=== PATIENT | male | born 1960 | race African-American/Black ===

== ENCOUNTER 2017-06-07 02:20 | Inpatient (IN) | payer MEDICARE ==
[2017-06-07] MEDS ORDERED: Nitroglycerin 0.4 MG TAB (25 Tab Bottle) ONE (03:03)
[2017-06-07 03:18] LABS: #Monocytes 0.6 thou/uL (0.11-0.59); #Neutrophils 6.9 thou/uL (1.40-6.50); %Basophils 0.3 % (0.0-1.0); %Eosinophils 0.3 % (0.0-10.0); %Lymphocytes 11.5 % (21.0-51.0); %Monocytes 6.7 % (0.0-10.0); Mean Platelet Volume 6.9 fL (7.4-10.4); White Blood Cell (WBC) Count 8.5 thou/uL (4.8-10.8)
[2017-06-07 03:42] LABS: ALT (SGPT) 17 U/L (8-55); AST (SGOT) 25 U/L (5-34); Alkaline Phosphatase 71 U/L (40-150); Anion Gap 11 mmol/L (10-20); BUN (Urea Nitrogen) 25 mg/dL (8.4-25.7); Bilirubin, Total 1.1 mg/dL (0.2-1.2); Calc. Creatinine Clearance 0 mL/min (70-130); Calcium 8.4 mg/dL (7.8-10.44); Carbon Dioxide 22 mmol/L (22-29); Chloride 108 mmol/L (98-107); Estimated GFR-MDRD 64; Globulin 3.5 g/dL (2.4-3.5); Protein, Total 6.7 g/dL (6.0-8.3)
[2017-06-07 04:08] LABS: Troponin I 0.061 ng/mL (< 0.028)
[2017-06-07] MEDS ORDERED: Nitroglycerin 2% Ointment 1 INCH/1 GM Packet ONE (04:17)
[2017-06-07] MEDS ORDERED: Furosemide 40 MG/4 ML VIAL ONE (04:17)
[2017-06-07 05:28] LABS: Bilirubin Negative (Negative); Blood, Urine Negative (Negative); Glucose, Urine (Dipstick) Negative (Negative); Ketone, Urine Negative (Negative); Nitrite Negative (Negative); Protein, Urine (Dipstick) 30 mg/dL (Neg-Trace)
[2017-06-07 05:30] LABS: Bacteria/HPF None Seen HPF (None Seen); Hyaline Casts/LPF 0-3 HYALINE CAST LPF (0-3 Hyaline); RBC/HPF 0-3 HPF (0-3); Squamous Epithelial None Seen HPF (0-3); WBC/HPF None Seen HPF (0-3)
[2017-06-07 05:37] LABS: Amphetamine Not Detected (NotDetected); Methadone Not Detected (NotDetected); Methamphetamine Not Detected (NotDetected)
[2017-06-07] MEDS ORDERED: Ondansetron ODT 4 MG TAB SL PRN (06:47)
[2017-06-07] MEDS ORDERED: Ondansetron HCl/PF 4 MG/2 ML Vial IVP PRN (06:47)
[2017-06-07] MEDS ORDERED: Acetaminophen 325 MG TAB PO PRN (06:47)
[2017-06-07] MEDS ORDERED: Morphine 4 MG/ML VIAL SLOW IVP PRN ×2 (06:48→11:17)
--- NOTE | 2017-06-07 07:19 | RAD ---
1 VIEW CHEST: Date: 06/07/17 COMPARISON: 02/24/16. HISTORY: Shortness of breath x1 month. Right leg swelling. FINDINGS: Stable left-sided single lead defibrillator. There is cardiomegaly. Pulmonary vessels are slightly pr ominent. Costophrenic angles are clear. Patchy interstitial opacities, presumed to be upon chronic ch laith are noted. There is concern for possible interstitial edema. Consolidation or mass is not apprec iated. There is no pneumothorax. IMPRESSION: 1. Cardiomegaly. 2. Pulmonary vascular prominence. 3. Interstitial edema. 4. Congestive heart failure. POS: PPP
[2017-06-07 08:20] LABS: Troponin I 0.057 ng/mL (< 0.028)
[2017-06-07 08:41] VITALS: BMI 22.7
[2017-06-07 11:02] LABS: Troponin I 0.054 ng/mL (< 0.028)
[2017-06-07] MEDS ORDERED: HYDROcodone/Acetaminophen 5/325 mg Tablet PO PRN (12:06)
--- NOTE | 2017-06-07 12:17 | HP ---
CHIEF COMPLAINT: Shortness of breath. HISTORY OF PRESENT ILLNESS: This is a 57-year-old pleasant gentleman who came into the hospital with worsening shortness of breath. He says that it started about 1 month back and it progressively got worse to the point that he could not lay down flat. The patient came to the point where he has to si t to go to sleep. The patient says that last time he saw Dr. 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 He also complains of some intermitt ent chest pains which is substernal, was does not radiate anywhere. Denies any palpitations, fever o r chills. Reports some cough every morning. Of note, his urine is positive for cocaine. He denies any fever, chills, diarrhea or dysuria at this point. PAST MEDICAL HISTORY: Acute on chronic systolic congestive heart failure with ejection fraction of 1 0-15%. The patient also has mild chronic kidney disease stage 3. History of coronary artery disease status post heart catheterization in 07/2015, cocaine abuse ongoing, medication noncompliance, hyper tension uncontrolled, history of hypertensive urgencies in the past, history of right knee septic leeanne nt arthritis. PAST SURGICAL HISTORY: Significant for multiple knee surgeries in the past, AICD, history of cardiac catheterization in 07/2015. CURRENT MEDICATIONS: The patient's current medications at the time of discharge included amiodarone, aspirin, Coreg, Lasix, lisinopril, Aldactone and prednisone, though he does not know his current med ications right now. ALLERGIES: No known drug allergies. FAMILY HISTORY: Significant for diabetes and hypertension. SOCIAL HISTORY: Does cocaine, quit smoking, quit marijuana. Denies alcohol. REVIEW OF SYSTEMS: Significant for shortness of breath, otherwise no fever, no chills, no headache, no appetite changes. No cough. Positive for chest pain, no diarrhea, no dysuria, or polyuria. No m sumaya or mood changes. No neck pain. PHYSICAL EXAMINATION: VITAL SIGNS: Blood pressure is 127/79, temperature is afebrile, pulse is 83, respirations 18. GENERAL: Patient is lying in bed in no apparent distress. HEENT: Atraumatic and normocephalic. Pupils equally round, react to light. Extraocular movements i ntact. Mucous membranes moist. NECK: No JVD. CHEST: Breath sounds heard, bibasilar rales heard. CARDIOVASCULAR: S1, S2 normal. There is a systolic ejection murmur heard. ABDOMEN: Soft, obese. EXTREMITIES: +1 edema present. NEUROLOGIC: Alert, awake, oriented. No cranial deficits. No sensorimotor deficits. SKIN: Warm and dry. PSYCHIATRIC: Good mood. LABORATORY DATA: Troponin is 0.061. Ejection fraction is 10%. BNP is 4082. Severe mitral regurgitation and TR seen on old echo. UDS shows cocaine. UA is negative. CK is pend ing. Chest x-ray shows CHF. Potassium is 4, creatinine is 1.39. WBC count is 8.5, hemoglobin is 12 . ASSESSMENT AND PLAN: 1. Acute on chronic systolic congestive heart failure with ejection fraction of 10%, cocaine use. W e will do IV. We will hold metoprolol and beta blockers for now because of the history of cocaine in the UDS. We will do IV Lasix, p.r.n. neb treatments, oxygen, Cardiology consult and continue SHLOMO an d Aldactone. 2. Cocaine use. He has been counseled about it. 3. Severe mitral regurgitation. Follow Cardiology plan. 4. Chronic kidney disease, stage 3. We will monitor throughout this hospital stay. 5. Hypertension, stable. 6. Status post automatic implantable cardioverter/defibrillator, stable. 7. Elevated troponins, possibly secondary to demand ischemia and cocaine use. We will follow Cardio logy recommendations. 8. Sequential compression devices for deep venous thrombosis prophylaxis. 9. We will get palliative care as well to determine goals of care. We will work with Cardiology in further caring for the patient.
[2017-06-07] MEDS ORDERED: FLU VACC QS2017-18 36 mo. & older 0.5 ML SYRINGE IM ONE (12:30)
[2017-06-07] MEDS: Furosemide 40 MG/4 ML VIAL SLOW IVP SCH (13:10)
--- NOTE | 2017-06-07 20:06 | CON ---
DATE OF CONSULTATION: 06/07/2017 INDICATION FOR CONSULTATION: A 57-year-old gentleman with CHF exacerbation. HISTORY OF PRESENT ILLNESS: This is a very unfortunate 57-year-old gentleman with a nonischemic card iomyopathy due to most likely to cocaine abuse. He was admitted again due to shortness of breath. Anika pillai has been noncompliant with his medications. He said he ran out of his medications and became more short of breath and has some chest discomfort and presented to the emergency room. He is feeling muc h better now after he has had some diuresis. He was in the hospital on June with very similar fin dings, he underwent a cardiac catheterization in 07/2015, which showed mild to moderate coronary avani ry disease. He has had chronic elevation of cardiac enzymes in the past. He does have an LAD stenos is about 40% by cardiac catheterization in 2016. He has also had an AICD implanted due to his severe cardiomyopathy. At this time, he is not having any complaints. He is somewhat lethargic and sleepy and is very difficult to keep the patient awake during the examination. PAST MEDICAL HISTORY: Significant for cardiomyopathy, hypertension, hypercholesterolemia, noncomplia nce with medications and mild coronary artery disease, diabetes, status post AICD, and knee surgery. SOCIAL HISTORY: He is smoked in the past, but stopped. He also denied any alcohol use but he contin ues to use cocaine. FAMILY HISTORY: Noncontributory. ALLERGIES: He has no known drug allergies. REVIEW OF SYSTEMS: A 12-point review of systems is unremarkable except what was noted in the history of present illness. PHYSICAL EXAMINATION: GENERAL: Reveals a middle-aged gentleman in no acute distress. VITAL SIGNS: Blood pressure is 120/91, heart rate is 95 and regular. He is afebrile, respiratory ra te is 18. HEENT: Reveals the head to be normocephalic and atraumatic. Carotid pulses are present. There were no bruits. No JVD. The thyroid did not appear to be enlarge d. Oral mucosa was pink and moist. CHEST: Clear to auscultation. I did not hear any rales, rhonchi or wheezing at this time. CARDIOVASCULAR: Exam reveals a regular rate and rhythm, normal S1 and S2. I cannot hear any S3 nor an S4, no significant murmurs, heaves, thrills, bruits or rubs. He has a very soft murmur at the ape x. ABDOMEN: Soft and nontender with positive bowel sounds. EXTREMITIES: Show no clubbing or cyanosis. He has mild lower extremity and ankle edema. Pedal puls es are difficult to palpate. NEUROLOGIC: The patient appears somewhat sleepy and lethargic, but he did answer most questions when he was repeatedly arouse do so. EKG shows a normal sinus rhythm with left ventricular hypertrophy. IMPRESSION: 1. Congestive heart failure exacerbation due to noncompliance with medications. He said he ran out of his medications that was not taking them and the goal will be to get him back on his medications a nd hopefully given some assistance and taking the medications. 2. History of coronary artery disease which is mild. This appears to be stable. There is no eviden ce, he has any acute episodes; however, his MB 7.0 and cardiac enzymes are slightly elevated, but are now trending downwards. His first set was 0.061, now down to 0.054. Most likely this is due to dem and ischemia. His BNP was elevated over 4000 compatible with his congestive heart failure. 3. History of hypertension. This is also under reasonable control at this time. 4. Mild to moderate chronic kidney disease stage 3. The creatinine is 1.39, BUN 25. This appears t o be stable, but may be overestimation since he most likely has volume overload with some dilution an d creatinine and the BUN. 6. History of ventricular tachycardia. He has an AICD implanted. Earlier today, he had 16 beats of nonsustained ventricular tachycardia. I do not know when his AICD was last checked. We may need to interrogate to see ventricular tachycardia if he has not had the device recently checked. Fur ther care of the patient will be determined by Dr. Corona when he sees the patient most likely ochoa franz.
[2017-06-07] MEDS: Famotidine 20 MG TAB PO SCH (21:28)
[2017-06-07] MEDS: Docusate 100 MG CAP PO SCH ×2 (21:28→22:07)
[2017-06-08 05:29] LABS: Anion Gap 12 mmol/L (10-20); BUN (Urea Nitrogen) 26 mg/dL (8.4-25.7); BUN/Creatinine Ratio 17.22; CK (CPK) 220 U/L (30-200); Calc. Creatinine Clearance 62 mL/min (70-130); Calcium 8.7 mg/dL (7.8-10.44); Carbon Dioxide 27 mmol/L (22-29); Chloride 104 mmol/L (98-107); Estimated GFR-MDRD 58; Phosphorus 4.1 mg/dL (2.3-4.7)
[2017-06-08] MEDS: Furosemide 40 MG/4 ML VIAL SLOW IVP SCH ×2 (06:54→14:40)
--- NOTE | 2017-06-08 08:01 | PRG ---
DATE OF SERVICE: 06/08/2017 SUBJECTIVE: Mr. Beckham recently was admitted for congestive heart failure. He states he is doing much better. He has diuresed. OBJECTIVE: VITAL SIGNS: Blood pressure 144/94, pulse 69, temperature 97.9. LUNGS: Clear to auscultation. CARDIAC: Regular rate and rhythm. ABDOMEN: Soft, nontender, nondistended. EXTREMITIES: No edema. LABORATORY DATA: Hemoglobin 12.5, peak troponin 0.061, creatinine 1.51 with a GFR of 58. Urine drug screen positive for cocaine. IMPRESSION: 1. Nonischemic cardiomyopathy. 2. Noncompliance. 3. Cocaine use. RECOMMENDATIONS: I once again counseled Mr. Beckham on the use of cocaine and the cause of nonischemic cardiomyopathy. Unfortunately, he continues to use the illicit drugs. At this point, I would contin ue with lisinopril and spironolactone. We will add low dose Coreg. Continue with diuresis. Recheck creatinine in a.m.
--- NOTE | 2017-06-08 08:27 | RAD ---
CHEST TWO VIEWS: HISTORY: Congestive heart failure. COMPARISON: 06/07/2017 FINDINGS: Cardiac silhouette remains enlarged. Pulmonary vasculature is engorged with patchy bibasilar infiltr ates. Blunting of each costophrenic angle has the appearance of a small amount of pleural fluid. Me diastinum remains midline with aortic calcification and a single lead left subclavian defibrillator. bottling equipment sales representative leads overlie the chest. IMPRESSION: Slight interval progression of pulmonary vascular congestion, now with small bilateral pleural effusi ons. POS: KIMBERLY
[2017-06-08] MEDS: Spironolactone 25 MG TAB PO SCH (09:13)
[2017-06-08] MEDS: Lisinopril 2.5 MG TAB PO SCH (09:13)
[2017-06-08] MEDS: Docusate 100 MG CAP PO SCH ×3 (09:14→21:27)
[2017-06-08] MEDS: Carvedilol 3.125 MG TAB PO SCH ×2 (09:14→21:27)
[2017-06-08] MEDS: Aspirin 81 mg Enteric Coated Tablet PO SCH (09:14)
[2017-06-08] MEDS: Famotidine 20 MG TAB PO SCH ×2 (09:14→21:27)
[2017-06-09] MEDS: Furosemide 40 MG/4 ML VIAL SLOW IVP SCH ×2 (05:53→14:50)
[2017-06-09 07:02] LABS: Anion Gap 12 mmol/L (10-20); BUN (Urea Nitrogen) 29 mg/dL (8.4-25.7); BUN/Creatinine Ratio 20.57; CK (CPK) 187 U/L (30-200); Calc. Creatinine Clearance 66 mL/min (70-130); Carbon Dioxide 27 mmol/L (22-29); Chloride 104 mmol/L (98-107); Estimated GFR-MDRD 63; Phosphorus 4.3 mg/dL (2.3-4.7)
[2017-06-09] MEDS ORDERED: Sodium Chloride 0.9% 10 ML ONE ×2 (08:13→14:10)
[2017-06-09] MEDS: Lisinopril 2.5 MG TAB PO SCH (09:42)
[2017-06-09] MEDS: Carvedilol 3.125 MG TAB PO SCH ×2 (09:42→20:05)
[2017-06-09] MEDS: Docusate 100 MG CAP PO SCH ×2 (09:42→20:06)
[2017-06-09] MEDS: Spironolactone 25 MG TAB PO SCH (09:43)
[2017-06-09] MEDS: Aspirin 81 mg Enteric Coated Tablet PO SCH (09:43)
[2017-06-09] MEDS: Famotidine 20 MG TAB PO SCH ×2 (09:43→20:05)
--- NOTE | 2017-06-09 14:47 | PDOC.PN ---
- Subjective Encounter Start Date: 06/08/17 Encounter Start Time: 14:46 Patient seen and examined. No new complaints. No overnight events - Objective MAR Reviewed: Yes Vital Signs & Weight: Vital Signs (12 hours) Temp Pulse Resp BP BP BP Pulse Ox 06/09/17 11:45 98.4 F 81 18 113/76 92 L 06/09/17 09:42 94 121/81 06/09/17 09:40 96 06/09/17 09:35 97.8 F 94 20 121/81 96 06/09/17 05:08 97.6 F 86 25 H 117/92 H 90 L Weight Admit Weight 177 lb 3.2 oz Weight 177 lb I&O: 06/08/17 06/09/17 06/10/17 06:59 06:59 06:59 Intake Total 1760 1145 480 Output Total 3835 2970 Balance -2075 -8825 480 Result Diagrams: 06/07/17 03:09 06/09/17 06:07 Phys Exam - Physical Examination Constitutional: NAD HEENT: PERRLA Neck: no JVD Respiratory: no wheezing bibasilar rales Cardiovascular: no significant murmur Gastrointestinal: non-tender Musculoskeletal: pulses present, edema present Neurological: moves all 4 limbs Psychiatric: A&O x 3 Dx/Plan (1) Systolic CHF, acute on chronic Code(s): I50.23 - ACUTE ON CHRONIC SYSTOLIC (CONGESTIVE) HEART FAILURE Status : Acute Comment: ef- 10% (2) Hypertension Code(s): I10 - ESSENTIAL (PRIMARY) HYPERTENSION Status: Chronic (3) CKD (chronic kidney disease) stage 3, GFR 30-59 ml/min Status: Chronic (4) Cocaine abuse Code(s): F14.10 - COCAINE ABUSE, UNCOMPLICATED Status: Chronic - Plan * cont current mx * f/u card plan
--- NOTE | 2017-06-09 14:49 | PDOC.PN ---
- Subjective Encounter Start Date: 06/09/17 Encounter Start Time: 14:48 Patient seen and examined. No new complaints. No overnight events - Objective MAR Reviewed: Yes Vital Signs & Weight: Vital Signs (12 hours) Temp Pulse Resp BP BP BP Pulse Ox 06/09/17 11:45 98.4 F 81 18 113/76 92 L 06/09/17 09:42 94 121/81 06/09/17 09:40 96 06/09/17 09:35 97.8 F 94 20 121/81 96 06/09/17 05:08 97.6 F 86 25 H 117/92 H 90 L Weight Admit Weight 177 lb 3.2 oz Weight 177 lb I&O: 06/08/17 06/09/17 06/10/17 06:59 06:59 06:59 Intake Total 1760 1145 480 Output Total 3835 2970 Balance -2075 -1827 480 Result Diagrams: 06/07/17 03:09 06/09/17 06:07 Phys Exam - Physical Examination Constitutional: NAD HEENT: PERRLA Neck: no JVD bibasilar rales Cardiovascular: no significant murmur Gastrointestinal: non-tender, no distention Musculoskeletal: edema present Neurological: moves all 4 limbs Psychiatric: A&O x 3 Dx/Plan (1) Systolic CHF, acute on chronic Code(s): I50.23 - ACUTE ON CHRONIC SYSTOLIC (CONGESTIVE) HEART FAILURE Status : Acute Comment: ef- 10% (2) Hypertension Code(s): I10 - ESSENTIAL (PRIMARY) HYPERTENSION Status: Chronic (3) CKD (chronic kidney disease) stage 3, GFR 30-59 ml/min Status: Chronic (4) Cocaine abuse Code(s): F14.10 - COCAINE ABUSE, UNCOMPLICATED Status: Chronic - Plan * * cont current mx * f/u card plan
--- NOTE | 2017-06-09 15:57 | PRG ---
DATE OF SERVICE: 06/09/2017 SUBJECTIVE: Mr. Beckham is doing better. He states he has had less swelling. He has diuresed. OBJECTIVE: VITAL SIGNS: Blood pressure 113/76, pulse 81 and temperature 94. LUNGS: Minimal crackles bilaterally. HEART: Regular rate and rhythm. ABDOMEN: Soft, nontender and nondistended. EXTREMITIES: 1+ pitting edema. PERTINENT LABORATORY DATA: None today. IMPRESSION: 1. Acute on chronic systolic failure. 2. Cocaine use. RECOMMENDATIONS: Again, I counseled Mr. Beckham on the importance of not using illicit drugs. He did h ave a ventricular tachycardia noted recently and was placed on amiodarone. We will follow.
[2017-06-10] MEDS ORDERED: Sodium Chloride 0.9% 10 ML ONE (04:38)
[2017-06-10] MEDS: Furosemide 40 MG/4 ML VIAL SLOW IVP SCH ×2 (05:25→14:15)
--- NOTE | 2017-06-10 06:35 | PRG ---
DATE OF SERVICE: 06/10/2017 SUBJECTIVE: Mr. Beckham states he is near his baseline. He mainly complains of mild right lower extrem ity swelling. His left lower extremity appears normal. He has no current crackles noted bilaterally . PHYSICAL EXAMINATION: GENERAL: Patient is a pleasant male, who is in no acute distress. The patient appears his stated ag e. VITAL SIGNS: 110/83, pulse 18, temperature 98. NEUROLOGIC: The patient is alert and oriented times 3 with no focal neurologic deficits. HEENT: Sclerae without icterus. Mouth has moist mucous membranes with normal pallor. NECK: No JVD. Carotid upstroke brisk. No bruits bilaterally. LUNGS: Clear to auscultation with unlabored respirations. BACK: No scoliosis or kyphosis. CARDIAC: Regular rate and rhythm with normal S1 and S2. No S3 or S4 noted. No significant rubs, mu rmurs, thrills, or gallops noted throughout the precordium. PMI is not displaced. There is no chapin ternal heave. ABDOMEN: Soft, nontender, nondistended. No peritoneal signs present. No hepatosplenomegaly. No ab normal striae. EXTREMITIES: Mild edema present of the left lower extremity. SKIN: No gross abnormalities. IMPRESSION: 1. Acute on chronic systolic heart failure. 2. Cocaine use. 3. Noncompliance. RECOMMENDATIONS: 1. Continue carvedilol, aspirin, in addition to lisinopril and spironolactone. 2. Amiodarone 400 mg one p.o. q.a.m. x1 month, then decrease to 200 mg one p.o. q.a.m. From my standpoint, the patient is close to discharge. We will discharge the patient on Lasix 40 mg p.o. q.a.m. Plan is to follow Mr. Beckham as an outpatient.
[2017-06-10 06:48] LABS: Anion Gap 12 mmol/L (10-20); BUN (Urea Nitrogen) 26 mg/dL (8.4-25.7); BUN/Creatinine Ratio 17.69; Calc. Creatinine Clearance 64 mL/min (70-130); Calcium 8.9 mg/dL (7.8-10.44); Carbon Dioxide 28 mmol/L (22-29); Chloride 101 mmol/L (98-107); Estimated GFR-MDRD 60; Phosphorus 4.2 mg/dL (2.3-4.7)
[2017-06-10] MEDS: Carvedilol 3.125 MG TAB PO SCH (08:17)
[2017-06-10] MEDS: Lisinopril 2.5 MG TAB PO SCH (08:17)
[2017-06-10] MEDS: Spironolactone 25 MG TAB PO SCH (08:18)
[2017-06-10] MEDS: Aspirin 81 mg Enteric Coated Tablet PO SCH (08:18)
[2017-06-10] MEDS: Famotidine 20 MG TAB PO SCH (08:18)
[2017-06-10] MEDS: Docusate 100 MG CAP PO SCH (08:18)
--- NOTE | 2017-06-10 13:12 | PDOC.PN ---
- Subjective Encounter Start Date: 06/10/17 Encounter Start Time: 13:11 Patient seen and examined. No new complaints. No overnight events - Objective MAR Reviewed: Yes Vital Signs & Weight: Vital Signs (12 hours) Temp Pulse Resp BP BP BP Pulse Ox 06/10/17 11:30 97.5 F L 79 20 120/76 93 L 06/10/17 08:17 86 113/77 06/10/17 08:10 97.8 F 86 18 113/77 95 06/10/17 03:42 98 F 80 20 110/83 96 06/10/17 01:36 94 L Weight Admit Weight 177 lb 3.2 oz Weight 177 lb 3.2 oz I&O: 06/09/17 06/10/17 06/11/17 06:59 06:59 06:59 Intake Total 1145 2348 240 Output Total 2970 4040 Balance -9391 -8095 240 Result Diagrams: 06/07/17 03:09 06/10/17 05:59 Phys Exam - Physical Examination Constitutional: NAD HEENT: PERRLA Neck: no JVD Respiratory: no wheezing Cardiovascular: no significant murmur Gastrointestinal: non-tender Musculoskeletal: pulses present Neurological: moves all 4 limbs Psychiatric: A&O x 3 Dx/Plan (1) Systolic CHF, acute on chronic Code(s): I50.23 - ACUTE ON CHRONIC SYSTOLIC (CONGESTIVE) HEART FAILURE Status : Acute Comment: ef- 10% (2) Hypertension Code(s): I10 - ESSENTIAL (PRIMARY) HYPERTENSION Status: Chronic (3) CKD (chronic kidney disease) stage 3, GFR 30-59 ml/min Status: Chronic (4) Cocaine abuse Code(s): F14.10 - COCAINE ABUSE, UNCOMPLICATED Status: Chronic - Plan * doing good * d/c home * f/u with card
--- NOTE | 2017-06-10 14:02 | DIS ---
DATE OF ADMISSION: 06/07/2017 DATE OF DISCHARGE: 06/10/2017 DIAGNOSES ON DISCHARGE: 1. Acute on chronic systolic congestive heart failure with ejection fraction of 10% secondary to arian delaney abuse, stable. 2. Cocaine abuse. Patient has been counseled. 3. Severe mitral regurgitation, stable. 4. Chronic kidney disease stage 3, stable. 5. Hypertension, stable. 6. Status post automatic implantable cardioverter/defibrillator, stable. 7. Elevated troponins, conservative management, stable. CONSULTANTS: The patient's consultants on the case were Cardiology. BRIEF HOSPITAL COURSE: This is a 57-year-old pleasant gentleman who came in with shortness of breath because of being noncompliant with medications and doing cocaine. Please refer to my H&P for furthe r details. The patient was seen by sales trainee. IV diuresis was put in place. He diuresed well. His symptoms resolved. He has been advised not to do cocaine. He is right now medically stable to b e discharged with outpatient followup with Cardiology. DISCHARGE MEDICATIONS: Include Coreg 3.125 mg p.o. b.i.d., aspirin 81 mg p.o. daily, lisinopril 2.5 p.o. daily, spironolactone 12.5 p.o. daily, amiodarone 400 mg p.o. daily for 1 month and then 200 m g p.o. daily, Lasix 40 mg p.o. daily. The patient is right now medically stable to be discharged with outpatient followup with Cardiology. He is asked come back to the emergency room in case symptoms recur. Total time for this discharge took 35 minutes.
[2017-06-10 17:08] VITALS: BP 114/64; TEMP 97.3
== END 2017-06-10 17:35 | disposition home or self-care (01) | DRG 291 ==
LOC: ERS 02:20 → 2NO 05:32
PROVIDERS: ADMIT Internal Medicine; ATTEND Internal Medicine
DX: I13.0 Hypertensive heart and chronic kidney disease with heart failure and stage 1 through stage 4 chronic kidney disease, or unspecified chronic kidney disease (principal); I50.23 Acute on chronic systolic (congestive) heart failure; M00.9 Pyogenic arthritis, unspecified; I24.8 Other forms of acute ischemic heart disease; I42.8 Other cardiomyopathies; N18.3 Chronic kidney disease, stage 3 (moderate); I25.10 Atherosclerotic heart disease of native coronary artery without angina pectoris; F14.10 Cocaine abuse, uncomplicated; I34.0 Nonrheumatic mitral (valve) insufficiency; Z91.14 Patient's other noncompliance with medication regimen; Z95.810 Presence of automatic (implantable) cardiac defibrillator; Z87.891 Personal history of nicotine dependence; Z83.3 Family history of diabetes mellitus; Z82.49 Family history of ischemic heart disease and other diseases of the circulatory system
CPT/HCPCS: 36415; 71020; 80053; 80069; 80306; 81003; 81015; 82550; 82553; 83735; 83880; 84484; 85025; 85379; 87040; 90471; 90682; 93005; 93306; 96361; 96374; A4216; G0008; G8978-GP-CI; G8979-GP-CI; G8980-GP-CI; J1940; Q2036

== ENCOUNTER 2017-08-08 15:38 | Inpatient (IN) | payer MEDICARE ==
[2017-08-08 16:02] LABS: #Monocytes 0.6 thou/uL (0.11-0.59); #Neutrophils 6.5 thou/uL (1.40-6.50); %Basophils 0.4 % (0.0-1.0); %Eosinophils 0.2 % (0.0-10.0); %Lymphocytes 12.6 % (21.0-51.0); %Monocytes 7.7 % (0.0-10.0); %Neutrophils 79.1 % (42.0-75.0); Mean Corpuscular HGB CONC 31.1 g/dL (32.0-36.0); Mean Corpuscular Hemoglobin 27.2 pg (27.0-31.0); Mean Corpuscular Volume 87.6 fl (80.0-94.0); Mean Platelet Volume 7.2 fL (7.4-10.4); Platelet Count 343 thou/uL (130-400); RBC Distribution Width 14.6 % (11.5-14.5); Red Blood Cell (RBC) Count 5.14 mill/uL (4.70-6.10); White Blood Cell (WBC) Count 8.2 thou/uL (4.8-10.8)
[2017-08-08 16:24] LABS: ALT (SGPT) 27 U/L (8-55); AST (SGOT) 45 U/L (5-34); Albumin 3.2 g/dL (3.5-5.0); Alkaline Phosphatase 73 U/L (40-150); Anion Gap 12 mmol/L (10-20); BUN (Urea Nitrogen) 30 mg/dL (8.4-25.7); Bilirubin, Total 1.4 mg/dL (0.2-1.2); CK (CPK) 805 U/L (30-200); Calc. Creatinine Clearance 0 mL/min (70-130); Calcium 8.8 mg/dL (7.8-10.44); Carbon Dioxide 28 mmol/L (22-29); Chloride 104 mmol/L (98-107); Estimated GFR-MDRD 58; Glucose 89 mg/dL (70-105); Potassium 3.8 mmol/L (3.5-5.1); Protein, Total 7.2 g/dL (6.0-8.3); Sodium 140 mmol/L (136-145)
[2017-08-08 16:28] LABS: Troponin I 0.068 ng/mL (< 0.028)
[2017-08-08 16:30] LABS: CKMB 7.8 ng/mL (0-6.6)
--- NOTE | 2017-08-08 17:14 | RAD ---
FRONTAL VIEW CHEST: Comparison: 07-04-16 Indication: Dyspnea, Edema. FINDINGS: There is marked enlargement of the cardiac silhouette. Patchy density at the mid inferior left lung i s present, obscured by cardiac silhouette. There is re-demonstration of a single lead left AICD. Vasc ular congestion is present. IMPRESSION: 1. CHF with marked enlargement of the cardiac silhouette. 2. Patchy density at the left lower lung zone obscured by the cardiac silhouette. POS: KIMBERLY
--- NOTE | 2017-08-08 17:15 | RAD ---
LEFT FOREARM: Indication: Foreign body. FINDINGS: There is an IV catheter at the proximal forearm. There are punctate densities of the distal forearm c entrally on the frontal projection and posteriorly, as well as at the ventral skin surface, on the la teral view. There is vascular calcification. No acute fracture visualized. IMPRESSION: 1. Punctate radiopaque densities at the distal forearm. Correlate clinically. 2. Vascular calcifications. 3. No fracture is seen. POS: KIMBERLY
[2017-08-08] MEDS ORDERED: Furosemide 40 MG/4 ML VIAL ONE (17:36)
[2017-08-08] MEDS ORDERED: methylPREDNISolone Sod Succ/PF 125 MG/2 ML VIAL ONE (18:38)
[2017-08-08 18:48] LABS: Troponin I 0.091 ng/mL (< 0.028)
[2017-08-08] MEDS ORDERED: Acetaminophen 325 MG TAB PO PRN (19:50)
[2017-08-08] MEDS: Carvedilol 3.125 MG TAB PO SCH (20:30)
[2017-08-08 22:20] LABS: Troponin I 0.099 ng/mL (< 0.028)
[2017-08-08 23:13] VITALS: BMI 25.5
--- NOTE | 2017-08-09 01:40 | HP-2 ---
TIME AND DATE OF SERVICE: 1900 hours on 08/08/2017. CODE STATUS: FULL CODE. PRIMARY CARE PHYSICIAN: Rodrigo heard. ATTENDING: Dr. Conner. RESIDENT: Ancelmo Moore MD HISTORIAN: Patient. CHIEF COMPLAINT: Dyspnea. HISTORY OF PRESENT ILLNESS: Yoan Beckham is a 57-year-old male with past medical history of heart rayne lure with reduced ejection fraction (ejection fraction of 15%-20% in 05/2017), and hypertension, who presents with a 1 month history of progressively worsening lower extremity edema. He also endorses i ncreased orthopnea, paroxysmal nocturnal dyspnea, and dyspnea with exertion over the last 3 weeks. Anika pillai was admitted in 05/2017 with similar symptoms and has a known history of nonischemic cardiomyopathy , secondary to cocaine use. The patient states that his last time use cocaine was 2-3 days ago. He states he rubbed the cocaine powder on his gums due to tooth pain. He did have a cardiac catheteriza tion in 2015 that showed mild to moderate coronary artery disease and LAD stenosis of 40%. He also e ndorsed occasional chest pain. Describes chest pain as sharp, left-sided, occurring mostly after cou ghing, chest pain lasts 2-3 minutes and then resolves on its own. PAST MEDICAL HISTORY: 1. Heart failure with reduced ejection fraction. 2. Hypertension. 3. Chronic kidney disease stage 3. 4. Cocaine abuse. 5. Severe mitral regurgitation. PAST SURGICAL HISTORY: 1. Defibrillator placement. 2. Knee surgery. ALLERGIES: No known drug allergies. MEDICATIONS: 1. Coreg 3.125 mg p.o. b.i.d. 2. Aspirin 81 mg p.o. daily. 3. Lisinopril 2.5 mg p.o. daily. 4. Spironolactone 12.5 mg p.o. daily. 5. Amiodarone 200 mg daily. 6. Lasix 40 mg p.o. daily. SOCIAL HISTORY: The patient denies tobacco or use of alcohol, but endorses cocaine use. REVIEW OF SYSTEMS: Twelve point review of systems including general, eyes, ENT, respiratory, CV, GI, , skin, musculoskeletal, neuro, and psych were all reviewed and were unremarkable unless otherwise stated in HPI. PHYSICAL EXAMINATION: VITAL SIGNS: Blood pressure 137/107, pulse 95, respiratory rate 28, temperature 99.5, pulse ox 96% o n 3 liters. Current weight 80 kilograms. GENERAL: Patient is a pleasant gentleman, alert and oriented x4, in no acute distress, well-develope d, well-nourished, and appropriately interactive. HEENT: Eyes: Pupils equal, round, reactive to light and accommodation. Extraocular muscles intact. Conjunctiva within normal limits. ENT: Tympanic membranes pearly whitfield without bulging or erythema. Nasal mucosa and oropharynx within normal limits. NECK: Supple, without lymphadenopathy or thyromegaly or bruits. CARDIOVASCULAR: Regular rate and rhythm. No murmurs or gallops. Radial and pedal pulses equal and present bilaterally. RESPIRATORY: Normal effort, no retractions. Bibasilar rales on auscultation. SKIN: Warm and dry without cyanosis or lesions. ABDOMEN: Soft, nontender. Bowel sounds normoactive. No mass or distention. EXTREMITIES: No clubbing or cyanosis. There is 2+ pitting edema in lower extremities bilaterally. MUSCULOSKELETAL: Structure and tone within normal limits. Full range of motion. NEUROLOGIC: No focal deficits. Sensation within normal limits. PSYCHIATRIC: Appropriate. LABORATORY DATA: White blood cell count 8.2, hemoglobin 14.0, hematocrit 45.1, platelets 343. Sodiu m 140, potassium 3.8, chloride 104, carbon dioxide 28, BUN 30, creatinine 1.52, glucose 89, calcium 8 .8, total protein 7.2, albumin 3.2, AST 45, ALT 27, alkaline phosphatase 73, total bilirubin 1.4. BN P is 6911, CK 805, CK-MB 7.8. Troponin 0.068. Chest x-ray showed congestive heart failure with tania edly enlarged cardiac silhouette, patchy density at the left lower lobe zone. Left forearm x-ray breana wed punctate radiopaque densities and distal forearm with vascular calcifications. ASSESSMENT AND PLAN: A 57-year-old male with acute congestive heart failure exacerbation. 1. Acute decompensated heart failure. Admit to tele and the patient lacked follow up with Cardiolog y after 05/2017 admission and did not fluid restrict at home. Also, is a chronic user of cocaine. W e will start IV Lasix, aspirin, Coreg, spironolactone. Fluids restrict at 1200 mL per day. Strict I 's and O's. Heart Failure Clinic and Education. Consider Cardiology consult. 2. Hypertension. Continue home meds, monitor. 3. Chronic kidney disease, stage 3. GFR is at baseline compared to prior admissions. Continue to m onitor. 4. Cocaine abuse, chronic. Cessation recommended. 5. Prophylaxis. Lovenox and sequential compression devices. 6. History of nonsustained ventricular tachycardia on amiodarone. 7. Code status: FULL CODE. DISPOSITION AND LENGTH OF HOSPITAL STAY: 2-3 days. Symptomatic medication will be provided. History and physical exam as well as management discussed with Dr. Conner.
[2017-08-09] MEDS ORDERED: Sodium Chloride 0.9% 10 ML ONE (05:17)
[2017-08-09] MEDS: Furosemide 40 MG/4 ML VIAL SLOW IVP SCH ×2 (05:18→15:14)
[2017-08-09 05:44] LABS: #Basophils 0.1 thou/uL (0.0-0.2); #Lymphocytes 0.4 thou/uL (1.20-3.40); #Monocytes 0.1 thou/uL (0.11-0.59); #Neutrophils 5.9 thou/uL (1.40-6.50); %Eosinophils 0.2 % (0.0-10.0); %Lymphocytes 5.8 % (21.0-51.0); %Monocytes 1.6 % (0.0-10.0); %Neutrophils 91.3 % (42.0-75.0); Mean Corpuscular HGB CONC 30.7 g/dL (32.0-36.0); Mean Corpuscular Hemoglobin 27.3 pg (27.0-31.0); Mean Corpuscular Volume 88.8 fl (80.0-94.0); Mean Platelet Volume 7.5 fL (7.4-10.4); Platelet Count 332 thou/uL (130-400); RBC Distribution Width 14.6 % (11.5-14.5); Red Blood Cell (RBC) Count 4.77 mill/uL (4.70-6.10); White Blood Cell (WBC) Count 6.5 thou/uL (4.8-10.8)
[2017-08-09 06:10] LABS: Anion Gap 13 mmol/L (10-20); BUN (Urea Nitrogen) 30 mg/dL (8.4-25.7); Calc. Creatinine Clearance 73 mL/min (70-130); Calcium 8.6 mg/dL (7.8-10.44); Carbon Dioxide 25 mmol/L (22-29); Cardiac Risk 5.3 (Less than 4.5); Chloride 105 mmol/L (98-107); Cholesterol 149 mg/dl (< 200 Desired); Estimated GFR-MDRD 62; Glucose 128 mg/dL (70-105); HDL Cholesterol 28 mg/dL (>60 Neg Risk); LDL Cholesterol, Calculated 94 mg/dL; Potassium 3.9 mmol/L (3.5-5.1); Sodium 139 mmol/L (136-145); Triglycerides 136 mg/dL (Less than 150)
[2017-08-09 06:12] LABS: Troponin I 0.053 ng/mL (< 0.028)
--- NOTE | 2017-08-09 06:12 | PDOC.FM ---
- Subjective Subjective: Pt reports always feeling better. Says he does not use oxygen at home. Asked him why he wasn't able to make it to cardiology appointment. Says it was a transportation issue. Denies any chest pain. Denies any acute events overnight. Denies any n/v/d/c. Denies any fever or chills. No other concerns at this time. - Objective MAR Reviewed: Yes Vital Signs & Weight: Vital Signs (12 hours) Temp Pulse Resp BP BP Pulse Ox 08/09/17 03:39 97.7 F 89 18 155/116 H 96 08/08/17 23:34 83 122/84 08/08/17 20:25 97.7 F 89 18 155/110 H 97 Weight Weight 89.528 kg I&O: 08/07/17 08/08/17 08/09/17 06:59 06:59 06:59 Intake Total 1254 Output Total 445 Balance 809 Result Diagrams: 08/09/17 03:55 08/09/17 03:55 EKG Reviewed by me: Yes Radiology Reviewed by me: Yes Radiology: L. Forearm X-ray: Punctuate radiopaque densitities at the distal forearm. Correlate clinically. Vascular calcifications CXR; CHF w/ marked enlargement of the cardiac silhouette. Patchy density at LLL zone obscured by cardiac silhouette. <Baldemar Ham - Last Filed: 08/09/17 08:28> - Objective Vital Signs & Weight: Vital Signs (12 hours) Temp Pulse Pulse Pulse Resp BP BP 08/09/17 12:02 08/09/17 11:30 98.3 F 81 16 08/09/17 10:36 91 95 132/92 H 158/106 H 08/09/17 08:45 97.7 F 84 16 BP Pulse Ox Pulse Ox Pulse Ox 08/09/17 12:02 95 08/09/17 11:30 126/92 H 95 08/09/17 10:36 93 L 92 L 08/09/17 08:45 140/92 H 95 Weight Weight 89.528 kg I&O: 08/08/17 08/09/17 08/10/17 06:59 06:59 06:59 Intake Total 1254 Output Total 445 Balance 809 Result Diagrams: 08/09/17 03:55 02/19/18 03:55 <Deborah Julienine - Last Filed: 08/09/17 17:08> Phys Exam - Physical Examination HEENT: PERRLA, moist MMs Neck: no nodes, no JVD, full ROM Respiratory: no wheezing, no rhonchi bibasilar rales noted. Cardiovascular: RRR, no significant murmur, no rub Gastrointestinal: soft, non-tender, positive bowel sounds Musculoskeletal: edema present (+2 pitting edema on LE bilaterally) Neurological: non-focal, normal sensation, moves all 4 limbs Lymphatic: no nodes Psychiatric: normal affect Skin: no rash, cap refill <2 seconds <Baldemar Ham - Last Filed: 08/09/17 08:28> Dx/Plan (1) Acute respiratory failure with hypoxia Code(s): J96.01 - ACUTE RESPIRATORY FAILURE WITH HYPOXIA Status: Acute (2) Acute on chronic heart failure Code(s): I50.9 - HEART FAILURE, UNSPECIFIED Status: Chronic (3) CKD (chronic kidney disease) stage 3, GFR 30-59 ml/min Status: Chronic (4) Cocaine abuse Code(s): F14.10 - COCAINE ABUSE, UNCOMPLICATED Status: Chronic (5) Non-ischemic cardiomyopathy Code(s): I42.9 - CARDIOMYOPATHY, UNSPECIFIED Status: Acute (6) Hypertension Code(s): I10 - ESSENTIAL (PRIMARY) HYPERTENSION Status: Chronic (7) Noncompliance with medication regimen Code(s): Z91.14 - PATIENT'S OTHER NONCOMPLIANCE WITH MEDICATION REGIMEN Status : Chronic - Plan Plan: Acute on CHF (EF 12/17 15-20%) BNP- 6000s, Troponin still trending upward. Likely due to demand ischemia -Fluid restrict 1200 ml. IV lasix BID. -Aspirin, Coreg, Spirinolactone. -Heart failure clinic and Cardiac Rehab consulted -Requiring 3 L of O2 at this time. Will continue to wean off as can Non-ischemic Cardiomyopathy -Due to cocaine use -Plan as above HTN -continue home meds CKD 3 -At baseline. No fluids at this time. Continue to monitor Cocaine Abuse -counseled on cessation <Baldemar Ham - Last Filed: 08/09/17 08:28> Attending Addendum - Attending Addendum I personally evaluated the patient and discussed the management with Dr. Ham. I agree with the History, Examination, Assessment and Plan documented above with any addition or exceptions noted below. Cardiology will be consulted. Pt with elevated troponin, ck and ckmb. Likely due to cocaine use. Will continue meds for chf exacerbation. <Lina Julien - Last Filed: 08/09/17 17:08>
[2017-08-09 06:17] LABS: CKMB 7.6 ng/mL (0-6.6); Critical Call CKMBM RESULT DECREASING
[2017-08-09] MEDS: Amiodarone 200 MG TAB PO SCH (06:20)
[2017-08-09 07:14] LABS: Troponin I 0.065 ng/mL (< 0.028)
[2017-08-09] MEDS: Spironolactone 25 MG TAB PO SCH (08:51)
[2017-08-09] MEDS: Carvedilol 3.125 MG TAB PO SCH ×2 (08:51→20:34)
[2017-08-09] MEDS: Lisinopril 2.5 MG TAB PO SCH (08:51)
[2017-08-09] MEDS ORDERED: FLU VACC QS2017-18 36 mo. & older 0.5 ML SYRINGE IM ONE (09:00)
[2017-08-09] MEDS ORDERED: Enoxaparin Sodium 40 MG/0.4 ML SYRINGE SC SCH ×2 (09:00→09:43)
[2017-08-09] MEDS ORDERED: Enoxaparin Sodium 60 MG/0.6 ML SYRINGE SC SCH (10:00)
--- NOTE | 2017-08-09 10:51 | RAD ---
CHEST TWO VIEWS: HISTORY: Congestive heart failure. CHF exacerbation. COMPARISON: 06/08/2017 FINDINGS: Stable left-sided defibrillator. Persistent cardiomegaly. Pleural and parenchymal change in the lef t lung base. Adequate aeration of the upper lungs. No pneumothorax. IMPRESSION: 1. Congestive heart failure. 2. Pleural and parenchymal change in the left lung base. POS: DARRELL
[2017-08-09 13:24] LABS: Troponin I 0.065 ng/mL (< 0.028)
[2017-08-09 13:32] LABS: CKMB 7.6 ng/mL (0-6.6)
--- NOTE | 2017-08-09 15:26 | EKG ---
Test Reason : CP Blood Pressure : / mmHG Vent. Rate : 085 BPM Atrial Rate : 085 BPM P-R Int : 146 ms QRS Dur : 116 ms QT Int : 440 ms P-R-T Axes : 011 095 -35 degrees QTc Int : 523 ms Normal sinus rhythm Possible Left atrial enlargement Non-specific intra-ventricular conduction delay Lateral infarct , age undetermined T wave abnormality, consider inferior ischemia Prolonged QT Abnormal ECG Confirmed by JIN CRUZ ([id number]) on 08/09/2017 3:25:55 PM Referred By: DR VENCES Confirmed By:JIN CRUZ
[2017-08-09] MEDS: Enoxaparin Sodium 100 MG/ML SYRINGE SC SCH (20:33)
--- NOTE | 2017-08-09 21:10 | CON ---
DATE OF CONSULTATION: 08/09/2017 HISTORY: Yoan Beckham is a 57-year-old black male with longstanding history of nonischemic cardiomyopathy probably secondary to cocaine abuse. He is a patient of Dr. Corona, although the patient has not really come to the office for followup. In 07/2015, he underwent catheterization and was found to have mild coronary artery disease. A single chamber defibrillator was placed in 02/2014. He continues to be noncompliant with his medications. He was recently discharged on 06/10/2017, after he was admitted for heart failure. He states he has been taking his medications; however, there are some discrepancies in his medications from what is listed as home medicines and what he should have been taking when he left the hospital. He also complains of some chest discomfort that is pleuritic in nature, occurring along the left lower sternal border. PAST MEDICAL HISTORY: Hypertension, hypercholesterolemia, noncompliance, history of cocaine abuse, nonischemic cardiomyopathy with ejection fraction of 10%-15%, mild coronary artery disease. OPERATIONS: Knee surgery and ICD placement. MEDICATIONS: At home include aspirin 81 daily, atorvastatin 5 mg at bedtime, furosemide 40 b.i.d., lisinopril 5 mg b.i.d., Aldactone 12.5 daily. Also, on his discharge summary from 2 months ago, he should also be on carvedilol 3.125 b.i.d. and amiodarone 200 mg daily. ALLERGIES: None. SOCIAL HISTORY: He uses cocaine. He does not smoke or drink. REVIEW OF SYSTEMS: Twelve-point review of systems is otherwise unremarkable. PHYSICAL EXAMINATION: VITAL SIGNS: Blood pressure 132/99, pulse 91. HEENT: PERRL. NECK: Supple. LUNGS: Chest is clear. CARDIAC: S1 and S2 are normal without any S3 or S4. There is a 2/6 holosystolic murmur at the apex. ABDOMEN: Normal bowel sounds without tenderness or organomegaly. EXTREMITIES: Revealed 2+ edema to the knee, 1+ edema in the thigh. NEUROLOGIC: Grossly intact. LABORATORY DATA: EKG reveals sinus tachycardia with possible left atrial enlargement, possible inferior infarction, hemoglobin 13.0, hematocrit 42.4, white count 6500, platelets 332,000. Sodium 139, potassium 3.9, chloride 105, carbon dioxide 25, BUN 30, creatinine 1.43, CK-MB 7.6, troponin I of 0.099. From looking back at all of his cardiac enzymes, they are always elevated about in this range. IMPRESSION: 1. Nonischemic cardiomyopathy with ejection fraction of 10%-15% in the past. 2. Mild coronary artery disease. 3. Single chamber implantable cardioverter defibrillator placement. 4. Ventricular tachycardia. 5. Hypertension. 6. Hyperlipidemia. 7. Cocaine abuse. PLAN: The patient has been restarted on his carvedilol. He has been started on intravenous diuretics and will be diuresed. MTDD
[2017-08-09 21:35] LABS: CKMB 5.9 ng/mL (0-6.6); Troponin I 0.058 ng/mL (< 0.028)
[2017-08-10] MEDS: Furosemide 40 MG/4 ML VIAL SLOW IVP SCH ×2 (05:19→12:38)
[2017-08-10] MEDS: Sodium Chloride 0.9% 10 ML ONE (05:19)
--- NOTE | 2017-08-10 06:23 | PDOC.FM ---
- Subjective Subjective: Pt reports being SOB this morning. Says it feels a little like asthma. Says he has never been dx with asthma. Denies any fever or chills. Had discussion with him about the severity of his HF and how he could qualify for hospice. Explained to him what hospice care was and how his EF of hf puts him at risk of . Agreed to talk with palliative care. - Objective Vital Signs & Weight: Vital Signs (12 hours) Temp Pulse Resp BP Pulse Ox 08/10/17 04:12 96 08/10/17 04:00 98.9 F 88 14 131/98 H 96 08/10/17 00:00 97.7 F 89 20 129/82 98 08/09/17 19:24 98.6 F 92 16 111/82 93 L Weight Weight 89.386 kg I&O: 08/08/17 08/09/17 08/10/17 06:59 06:59 06:59 Intake Total 1254 1020 Output Total 445 2275 Balance 809 -1255 Result Diagrams: 08/09/17 03:55 08/09/17 03:55 Radiology Reviewed by me: Yes (repeat cxray showed no change) <Baldemar Ham - Last Filed: 08/10/17 08:19> - Objective Vital Signs & Weight: Vital Signs (12 hours) Temp Pulse Resp BP Pulse Ox 08/10/17 11:31 98 F 92 20 127/101 H 97 08/10/17 07:46 97.9 F 91 22 H 138/101 H 100 08/10/17 07:45 97.9 F 91 22 H 100 08/10/17 04:12 96 Weight Weight 89.386 kg I&O: 08/09/17 08/10/17 08/11/17 06:59 06:59 06:59 Intake Total 1254 1020 240 Output Total 445 2275 Balance 809 -1255 240 Result Diagrams: 08/09/17 03:55 08/10/17 08:40 <Lina Julien - Last Filed: 08/10/17 16:07> Phys Exam - Physical Examination Constitutional: NAD HEENT: PERRLA, moist MMs Neck: no nodes, no JVD, supple, full ROM Respiratory: no wheezing, no rales some bibasilar crackles noted Cardiovascular: RRR, no significant murmur, no rub Gastrointestinal: soft, non-tender, no distention, positive bowel sounds Musculoskeletal: edema present (+2 edema in LE bilaterally) Neurological: non-focal, normal sensation, moves all 4 limbs Lymphatic: no nodes Psychiatric: normal affect Skin: no rash, normal turgor <Baldemar Ham - Last Filed: 08/10/17 08:19> Dx/Plan (1) Acute respiratory failure with hypoxia Code(s): J96.01 - ACUTE RESPIRATORY FAILURE WITH HYPOXIA Status: Acute (2) Acute on chronic heart failure Code(s): I50.9 - HEART FAILURE, UNSPECIFIED Status: Chronic (3) CKD (chronic kidney disease) stage 3, GFR 30-59 ml/min Status: Chronic (4) Cocaine abuse Code(s): F14.10 - COCAINE ABUSE, UNCOMPLICATED Status: Chronic (5) Non-ischemic cardiomyopathy Code(s): I42.9 - CARDIOMYOPATHY, UNSPECIFIED Status: Acute (6) Hypertension Code(s): I10 - ESSENTIAL (PRIMARY) HYPERTENSION Status: Chronic (7) Noncompliance with medication regimen Code(s): Z91.14 - PATIENT'S OTHER NONCOMPLIANCE WITH MEDICATION REGIMEN Status : Chronic - Plan Plan: Acute on CHF (EF 06/06 15-20%) BNP- 6000s, Troponins and CKMB have since trended down. -Fluid restrict 1200 ml. IV lasix BID. -Aspirin, Coreg, Spirinolactone. -Heart failure clinic and Cardiac Rehab consulted -Requiring 2 L of O2 at this time. Will continue to wean off as can -Cardiology Consulted- Dr. Lal- will follow recs Continue IV diuretics Non-ischemic Cardiomyopathy -Due to cocaine use -Plan as above HTN -continue home meds CKD 3 -At baseline. No fluids at this time. Continue to monitor Cocaine Abuse -counseled on cessation Non-sustained Vtach Amiodarone Noncompliance -CM consulted to help with med assistance. -Discussed due to patients EF could possibly qualify for palliative or hospice care which would maybe help with med compliance -Palliative care consulted <Baldemar Ham - Last Filed: 08/10/17 08:19> Attending Addendum - Attending Addendum I personally evaluated the patient and discussed the management with Dr. Ham. I agree with the History, Examination, Assessment and Plan documented above with any addition or exceptions noted below. The patient is concerned about a foreign body in his vein. He notes an IV catheter broke off in his vein during a previous hospitalization at the [facility] but they didn't do anything about it 1 month ago. He is concerned that it will migrate. Palpable foreign body noted on arm. Will get u/s to verify if it is in the vein. If so, discuss with CV surg. Continue diuresis. Pt not being compliant with fluid restriction. Palliative care also being consulted. Will try to wean o2. <Lina Julien - Last Filed: 08/10/17 16:07>
[2017-08-10] MEDS: Lisinopril 2.5 MG TAB PO SCH (09:30)
[2017-08-10] MEDS: Spironolactone 25 MG TAB PO SCH (09:30)
[2017-08-10] MEDS: Carvedilol 3.125 MG TAB PO SCH (09:31)
[2017-08-10] MEDS: Enoxaparin Sodium 100 MG/ML SYRINGE SC SCH (09:31)
[2017-08-10 09:55] LABS: ALT (SGPT) 25 U/L (8-55); AST (SGOT) 36 U/L (5-34); Alkaline Phosphatase 67 U/L (40-150); Anion Gap 8 mmol/L (10-20); BUN (Urea Nitrogen) 27 mg/dL (8.4-25.7); Bilirubin, Total 1.2 mg/dL (0.2-1.2); Calc. Creatinine Clearance 74 mL/min (70-130); Calcium 8.6 mg/dL (7.8-10.44); Carbon Dioxide 33 mmol/L (22-29); Chloride 103 mmol/L (98-107); Estimated GFR-MDRD 63; Globulin 3.6 g/dL (2.4-3.5); Glucose 99 mg/dL (70-105); Potassium 3.4 mmol/L (3.5-5.1); Protein, Total 6.6 g/dL (6.0-8.3); Sodium 141 mmol/L (136-145)
[2017-08-10] MEDS ORDERED: Potassium Chloride 20 MEQ TAB PO SCH (11:45)
[2017-08-10] MEDS ORDERED: Furosemide 40 MG/4 ML VIAL SLOW IVP SCH (11:45)
--- NOTE | 2017-08-10 14:00 | ULT ---
ULTRASOUND VENOUS DOPPLER DUPLEX LEFT UPPER EXTREMITY: 08/10/2017 HISTORY: A 57-year-old male with left forearm pain. Suspected foreign body. Jodi, the press feeder broomcorn, notif ied the nurse in charge of the patient of the findings. TECHNIQUE: Villegas-scale, color-flow, and spectral analysis, limited to the segment of the basilic vein around the elbow. FINDINGS: There is a linear, tubular, at least 2.5 cm long, echogenic foreign body within the occluded segment of the basilic vein, at the proximal aspect of the forearm. The basilic vein is clotted and occluded downstream (proximally), up to the distal arm, slightly proximal to the elbow. Superior to that, th e rest of the basilic vein in the arm is patent. IMPRESSION: Positive for intravenous catheter fragment foreign body, occluding the basilic vein at the proximal forearm. CODE CR CODE T POS: KIMBERLY
--- NOTE | 2017-08-10 17:43 | PRG ---
DATE OF SERVICE: 08/10/2017 SUBJECTIVE: Mr. Beckham continues to complain of shortness of breath and lower extremity edema. He is on Lasix. His response has been mild. He states he has not been using cocaine as he has in the past . OBJECTIVE: VITAL SIGNS: Blood pressure 124/95, pulse 99, temperature 98.5. GENERAL: Patient is a pleasant male who is in no acute distress. The patient appears his stated age. NEUROLOGIC: The patient is alert and oriented times 3 with no focal neurologic deficits. HEENT: Sclerae without icterus. Mouth has moist mucous membranes with normal pallor. NECK: No JVD. Carotid upstroke brisk. No bruits bilaterally. LUNGS: Crackles bilaterally. BACK: No scoliosis or kyphosis. CARDIAC: Regular rate and rhythm with normal S1 and S2. No S3 or S4 noted. No significant rubs, mu rmurs, thrills, or gallops noted throughout the precordium. PMI is not displaced. There is no chapin ternal heave. ABDOMEN: Soft, nontender, nondistended. No peritoneal signs present. No hepatosplenomegaly. No abnormal striae. EXTREMITIES: 2-3+ pitting edema. SKIN: No gross abnormalities. IMPRESSION: 1. Acute on chronic systolic heart failure. 2. Previous drug use. RECOMMENDATIONS: Increase carvedilol to 6.25 b.i.d. Discontinue b.i.d. enoxaparin. Increase Lasix to 80 mg q.a.m. and reassess response. May add metolazone if needed.
--- NOTE | 2017-08-10 21:26 | CON ---
DATE OF CONSULTATION: 08/10/2017 HISTORY OF PRESENT ILLNESS: This is a 57-year-old gentleman with a history of congestive heart failu re with multiple previous evaluations. The patient has a history of noncompliance, hypertension, chr onic kidney disease, dyslipidemia, cocaine use and nonsustained ventricular tachycardia. He was seen at the [facility] about one month ago with lower extremity edema and dyspnea. The patient reports having a n IV placed in his left forearm at that time and he states the catheter broke off in his arm and the nurse did nothing about it and sned him upstairs. He is again admitted to the hospital with progress marco antonio dyspnea, known ejection fraction of about 20%. While here, the patient had an x-ray of his left forearm, which did not delineate any foreign body. He then had an ultrasound performed, which was rodríguez spicious for retained catheter. On examination this evening, the patient has a palpable mass in the vein in the volar aspect of his l eft forearm. This could represent a phlebitic or thrombosed vein related to IV catheter placement or could be related to retained catheter. In any event, this has been in place for a month is not caus ing any difficulty and is not going to create any problems in the future. We would not remove it at this time and if it is a phlebitic vein, it should gradually resolve over the next few months. I hav e discussed this with the patient. PAST SURGICAL HISTORY: Includes knee surgery and defibrillator placement. MEDICATIONS: Supposedly taken prior to admission include Coreg, aspirin, lisinopril, spironolactone, amiodarone, and Lasix. SOCIAL HISTORY: The patient denies tobacco abuse, but does admit to cocaine use. PHYSICAL EXAMINATION: GENERAL: Otherwise alert, cooperative gentleman, moving about the room comfortably. VITAL SIGNS: Blood pressure 130/90, heart rate 80. NECK: No carotid bruits. CARDIAC: Regular rhythm. No murmurs. ABDOMEN: Soft, nontender. EXTREMITIES: As noted above. ASSESSMENT AND PLAN: No further intervention needed for either thrombosed vein related to an IV cath eter or a retained catheter fragment that is not infected and will not be mobile as it is fixed and f ibrous tissue at this time.
[2017-08-10] MEDS: Carvedilol 6.25 MG TAB PO SCH (22:16)
[2017-08-11 01:49] LABS: Actual Bicarbonate (HCO3a) 26.3 mEq/L (22-26); Base Excess (BEa) 4.4 mEq/L (0 (+/-) 2.5); CO2 Tension 30.8 mmHg (35.0-45.0); Hematocrit-ABG 42.1 % (42.0-52.0); Hemoglobin (Hb) 12.4 g/dL (14.0-18.0); pH, Arterial 7.55 (7.35-7.45)
[2017-08-11 01:50] LABS: Calcium, Ionized 1.1 mmol/L (1.12-1.30); Puncture Site RRA
[2017-08-11] MEDS ORDERED: Furosemide 40 MG/4 ML VIAL ONE (01:54)
[2017-08-11] MEDS: Sodium Chloride 0.9% 10 ML ONE (02:07)
[2017-08-11] MEDS ORDERED: Furosemide 100 MG/10 ML VIAL SLOW IVP SCH ×2 (02:15→06:00)
[2017-08-11] MEDS ORDERED: Lorazepam 0.5 MG TAB PO SCH (02:15)
--- NOTE | 2017-08-11 06:41 | PDOC.FM ---
- Subjective Subjective: Pt doing okay. Had a rough night with multiple events of SOB. Was given 60 of lasix overnight as seemed fluid overloaded at the time. Pt denies any chest pain. Denies any fever or chills. Says while in room still having some issues with SOB. No longer on oxygen at this time. - Objective MAR Reviewed: Yes Vital Signs & Weight: Vital Signs (12 hours) Temp Pulse Resp BP BP BP Pulse Ox 08/11/17 02:54 88 28 H 137/102 H 100 08/11/17 01:01 97.7 F 86 40 H 131/92 H 08/10/17 22:16 120/77 08/10/17 22:00 99 22 H 100 08/10/17 20:49 97.7 F 86 40 H 120/77 95 Weight Weight 89.386 kg I&O: 08/09/17 08/10/17 08/11/17 06:59 06:59 06:59 Intake Total 1254 1020 1465 Output Total 445 2275 5420 Balance 805 -3721 -5841 Result Diagrams: 08/09/17 03:55 08/10/17 08:40 Radiology Reviewed by me: Yes (No official Read. Looks fluid overloaded) <Baldemar Ham - Last Filed: 08/11/17 08:11> - Objective Vital Signs & Weight: Vital Signs (12 hours) Temp Pulse Resp BP BP BP Pulse Ox 08/11/17 11:40 97.8 F 88 18 113/71 93 L 08/11/17 09:30 97.7 F 92 16 92 L 08/11/17 09:24 92 123/92 H 08/11/17 08:00 97.7 F 92 16 123/92 H 92 L 08/11/17 07:14 93 32 H 131/105 H Weight Weight 83.574 kg I&O: 08/10/17 08/11/17 08/12/17 06:59 06:59 06:59 Intake Total 1020 1465 Output Total 2275 5493 800 Balance -4075 -4507 -800 Result Diagrams: 08/11/17 09:21 08/11/17 09:21 <Lina Julien - Last Filed: 08/11/17 15:42> Phys Exam - Physical Examination Constitutional: NAD HEENT: PERRLA, moist MMs Neck: no nodes, supple, full ROM Respiratory: no wheezing crackles heard bilaterally Cardiovascular: RRR, no significant murmur, no rub Gastrointestinal: soft, non-tender, no distention, positive bowel sounds Musculoskeletal: no edema Neurological: non-focal, moves all 4 limbs Lymphatic: no nodes Psychiatric: A&O x 3 Deviation from normal: Pt seems a little anxious. Skin: no rash, normal turgor <Baldemar Ham - Last Filed: 08/11/17 08:11> Dx/Plan (1) Acute respiratory failure with hypoxia Code(s): J96.01 - ACUTE RESPIRATORY FAILURE WITH HYPOXIA Status: Acute (2) Acute on chronic heart failure Code(s): I50.9 - HEART FAILURE, UNSPECIFIED Status: Chronic (3) CKD (chronic kidney disease) stage 3, GFR 30-59 ml/min Status: Chronic (4) Cocaine abuse Code(s): F14.10 - COCAINE ABUSE, UNCOMPLICATED Status: Chronic (5) Non-ischemic cardiomyopathy Code(s): I42.9 - CARDIOMYOPATHY, UNSPECIFIED Status: Acute (6) Hypertension Code(s): I10 - ESSENTIAL (PRIMARY) HYPERTENSION Status: Chronic (7) Noncompliance with medication regimen Code(s): Z91.14 - PATIENT'S OTHER NONCOMPLIANCE WITH MEDICATION REGIMEN Status : Chronic (8) Superficial foreign body of left upper arm Code(s): S40.852A - SUPERFICIAL FOREIGN BODY OF LEFT UPPER ARM, INIT ENCNTR Status: Acute - Plan Plan: Acute on CHF (EF 12/17 15-20%) BNP- 6000s, Troponins and CKMB have since trended down. -Fluid restrict 1200 ml. IV lasix BID. -Aspirin, Coreg, Spirinolactone. -Heart failure clinic and Cardiac Rehab consulted -Requiring 2 L of O2 at this time. Will continue to wean off as can -Cardiology Consulted- Dr. Lal- will follow recs Continue IV diuretics Lasix dose increased. Consider adding metalozone -Had event getting SOB overnight. ABG shows elevated PH. Likely hyperventilating. Given one time dose of lasix. continue to monitor Non-ischemic Cardiomyopathy -Due to cocaine use -Plan as above HTN -continue home meds CKD 3 -At baseline. No fluids at this time. Continue to monitor Cocaine Abuse -counseled on cessation Non-sustained Vtach Amiodarone Noncompliance -CM consulted to help with med assistance. -Discussed due to patients EF could possibly qualify for palliative or hospice care which would maybe help with med compliance -Palliative care consulted -Pt also seen yesterday in halls going and filling his water cup on his own. On fluid restriction yet still drinking his own fluids. Likely why we are not seeing great improvement. Foreign body in Left Arm -U/S shows old venous cathether in basillic vein. Pt said this occurred at the [facility] -CV surgery Consulted- Dr. Galarza- Appreciate recs -It is fibrosed. Nothing to do at this time. <Baldemar Ham - Last Filed: 08/11/17 08:11> Attending Addendum - Attending Addendum Date/Time: 08/11/17 6253 I personally evaluated the patient and discussed the management with Dr. Ham. I agree with the History, Examination, Assessment and Plan documented above with any addition or exceptions noted below. The patient has been noncompliant with fluid restriction. He was getting his own water that wasn't being recorded by nurse.s Counseled on importance of limiting fluid intake. Increased IV lasix. Monitor I/O. <Lina Julien - Last Filed: 08/11/17 15:42>
[2017-08-11] MEDS ORDERED: Sodium Chloride 0.9% 10 ML ONE (06:58)
--- NOTE | 2017-08-11 08:15 | RAD ---
PORTABLE CHEST 1 VIEW: DATE: 08/11/17. TIME: 1:51 a.m. HISTORY: Shortness of breath. FINDINGS/IMPRESSION: Comparison is made with the exam from 08/09/17. The heart is enlarged. Left-sided AICD remains in place. There is pulmonary vascular congestion. T here is a suggestion of a left pleural effusion. No pneumothoraces are seen. POS: [facility]
[2017-08-11] MEDS: Enoxaparin Sodium 40 MG/0.4 ML SYRINGE SC SCH (09:24)
[2017-08-11] MEDS: Carvedilol 6.25 MG TAB PO SCH ×2 (09:24→20:38)
[2017-08-11] MEDS: Lisinopril 5 MG TAB PO SCH (09:24)
[2017-08-11] MEDS: Amiodarone 200 MG TAB PO SCH (09:24)
[2017-08-11] MEDS: Spironolactone 25 MG TAB PO SCH (09:25)
[2017-08-11 09:35] LABS: #Basophils 0.1 thou/uL (0.0-0.2); #Lymphocytes 0.9 thou/uL (1.20-3.40); #Monocytes 0.7 thou/uL (0.11-0.59); #Neutrophils 9.5 thou/uL (1.40-6.50); %Basophils 0.6 % (0.0-1.0); %Eosinophils 0.2 % (0.0-10.0); %Lymphocytes 8.3 % (21.0-51.0); %Monocytes 6.5 % (0.0-10.0); %Neutrophils 84.5 % (42.0-75.0); Mean Corpuscular HGB CONC 30.2 g/dL (32.0-36.0); Mean Corpuscular Hemoglobin 26.6 pg (27.0-31.0); Mean Corpuscular Volume 88.1 fl (80.0-94.0); Mean Platelet Volume 7.6 fL (7.4-10.4); Platelet Count 334 thou/uL (130-400); Red Blood Cell (RBC) Count 5.27 mill/uL (4.70-6.10); White Blood Cell (WBC) Count 11.2 thou/uL (4.8-10.8)
[2017-08-11 09:52] LABS: Anion Gap 12 mmol/L (10-20); BUN (Urea Nitrogen) 26 mg/dL (8.4-25.7); Calc. Creatinine Clearance 62 mL/min (70-130); Calcium 9.1 mg/dL (7.8-10.44); Carbon Dioxide 34 mmol/L (22-29); Chloride 98 mmol/L (98-107); Estimated GFR-MDRD 56; Glucose 131 mg/dL (70-105); Potassium 4.2 mmol/L (3.5-5.1); Sodium 140 mmol/L (136-145)
--- NOTE | 2017-08-11 09:53 | PDOC.EVN ---
Event Note - Event Note Event Note: Received a page around 2:00 AM from nurse stating that patient was having increased respiratory rate and work of breathing. He was on his knees leaning over the bed because he was having difficulty breathing. Residents arrived to the room, and patient appeared to be breathing fast and labored. He was o n his knees leaning over bed. Pulse ox was not picking up appropriately. When it would result,the O2 sats were in the 70's. An ABG was performed which showed a pH of 7.55, HCO of 30.8, and CO2 of 106. Patient was on 4L of O2. Patient did appear anxious. A CXR was performed which did show worsening pulmonary edema and possible effusion on left. Patient was given an additional 6o mg IV lasix and had >1000 mL ouput.
--- NOTE | 2017-08-11 19:06 | PRG ---
DATE OF SERVICE: 08/11/2017 SUBJECTIVE: Mr. Beckham feels much better today. I increased his Lasix yesterday. We will decrease hi s Lasix today due to increase in creatinine. He states he has less edema and less shortness of breat h. OBJECTIVE: VITAL SIGNS: Blood pressure 124/86, pulse 92, temperature 97.9. LUNGS: Clear to auscultation. CARDIAC: Regular rate and rhythm. ABDOMEN: Soft, nontender, nondistended. EXTREMITIES: 2+ pitting edema. PERTINENT LABORATORY DATA: Creatinine 1.57, which is up from 1.40. IMPRESSION: Acute systolic heart failure. RECOMMENDATIONS: I again discussed compliance with Mr. Beckham was sodium, fluids and illicit drug use. He states "although I have heard this before," he will be compliant. I have decreased his Lasix to 80 mg q.a.m. from b.i.d. Continue lisinopril in addition to carvedilol. Plan of discharge in the n ext 1-2 days.
[2017-08-12] MEDS ORDERED: Furosemide 100 MG/10 ML VIAL SLOW IVP SCH (06:00)
--- NOTE | 2017-08-12 06:21 | PDOC.FM ---
- Subjective Subjective: Pt doing better. Has not been requiring oxygen at times. Pt reports feeling better. Pt has diuresed good amount of fluid off. Pt stable. Pt trying to follow fluid restrictions. Continue to monitor - Objective MAR Reviewed: Yes Vital Signs & Weight: Vital Signs (12 hours) Temp Pulse Resp BP Pulse Ox 08/12/17 04:00 98.4 F 83 20 99/62 97 08/12/17 01:16 95 08/11/17 20:35 98.3 F 89 18 109/73 95 Weight Weight 83.603 kg I&O: 08/10/17 08/11/17 08/12/17 06:59 06:59 06:59 Intake Total 1020 1465 565 Output Total 2275 5420 1300 Balance -5811 -3558 -336 Result Diagrams: 08/11/17 09:21 08/12/17 06:37 EKG Reviewed by me: Yes <Baldemar Ham - Last Filed: 08/12/17 08:38> - Objective Vital Signs & Weight: Vital Signs (12 hours) Temp Pulse Resp BP BP Pulse Ox 08/12/17 12:00 98.1 F 79 20 118/66 99 08/12/17 10:01 111/73 08/12/17 10:00 86 111/73 08/12/17 09:00 97.7 F 86 18 111/73 99 08/12/17 08:00 98.1 F 79 20 99 Weight Weight 83.603 kg I&O: 08/11/17 08/12/17 08/13/17 06:59 06:59 06:59 Intake Total 1465 565 Output Total 5420 2200 Balance -9182 -9673 Result Diagrams: 08/11/17 09:21 08/12/17 06:37 <Lina Julien - Last Filed: 08/12/17 18:22> Phys Exam - Physical Examination HEENT: PERRLA, moist MMs, oral pharynx no lesions Neck: no nodes, supple, full ROM Mild crackles in the bases Cardiovascular: RRR, no significant murmur, no rub Gastrointestinal: soft, non-tender, no distention, positive bowel sounds Musculoskeletal: no edema, pulses present Neurological: non-focal, normal sensation, moves all 4 limbs Lymphatic: no nodes Psychiatric: normal affect, A&O x 3 Skin: no rash, cap refill <2 seconds <Baldemar Ham - Last Filed: 08/12/17 08:38> Dx/Plan (1) Acute respiratory failure with hypoxia Code(s): J96.01 - ACUTE RESPIRATORY FAILURE WITH HYPOXIA Status: Acute (2) Acute on chronic heart failure Code(s): I50.9 - HEART FAILURE, UNSPECIFIED Status: Chronic (3) CKD (chronic kidney disease) stage 3, GFR 30-59 ml/min Status: Chronic (4) Cocaine abuse Code(s): F14.10 - COCAINE ABUSE, UNCOMPLICATED Status: Chronic (5) Non-ischemic cardiomyopathy Code(s): I42.9 - CARDIOMYOPATHY, UNSPECIFIED Status: Acute (6) Hypertension Code(s): I10 - ESSENTIAL (PRIMARY) HYPERTENSION Status: Chronic (7) Noncompliance with medication regimen Code(s): Z91.14 - PATIENT'S OTHER NONCOMPLIANCE WITH MEDICATION REGIMEN Status : Chronic (8) Superficial foreign body of left upper arm Code(s): S40.852A - SUPERFICIAL FOREIGN BODY OF LEFT UPPER ARM, INIT ENCNTR Status: Acute - Plan Plan: Acute on CHF (EF 12/17 15-20%) BNP- 6000s, Troponins and CKMB have since trended down. -Fluid restrict 1200 ml. IV lasix BID. -Aspirin, Coreg, Spirinolactone. -Heart failure clinic and Cardiac Rehab consulted -Weaned off oxygen at this time. -Cardiology Consulted- Dr. Lal- will follow recs Continue IV diuretics Lasix decreased to once a day. Added lisinopril possible discharge in next few days Non-ischemic Cardiomyopathy -Due to cocaine use -Plan as above HTN -continue home meds CKD 3 -At baseline. No fluids at this time. Continue to monitor BMP. -Cr elevated a little yesterday. Cocaine Abuse -counseled on cessation Non-sustained Vtach Amiodarone Noncompliance -CM consulted to help with med assistance. -Discussed due to patients EF could possibly qualify for palliative or hospice care which would maybe help with med compliance -Palliative care consulted -Pt also seen multiple times in halls going and filling his water cup on his own. On fluid restriction yet still drinking his own fluids. Likely why we are not seeing great improvement. Foreign body in Left Arm -U/S shows old venous cathether in basillic vein. Pt said this occurred at the [facility] -CV surgery Consulted- Dr. Galarza- Appreciate recs -It is fibrosed. Nothing to do at this time. <Baldemar Ham - Last Filed: 08/12/17 08:38> Attending Addendum - Attending Addendum Date/Time: 08/12/17 1821 I personally evaluated the patient and discussed the management with Dr. Ham. I agree with the History, Examination, Assessment and Plan documented above with any addition or exceptions noted below. Will change lasix to PO. Patient is now off oxygen. Anticipate discharge tomorrow. <Lina Julien - Last Filed: 08/12/17 18:22>
[2017-08-12 07:18] LABS: Anion Gap 11 mmol/L (10-20); BUN (Urea Nitrogen) 27 mg/dL (8.4-25.7); Calc. Creatinine Clearance 64 mL/min (70-130); Calcium 8.9 mg/dL (7.8-10.44); Carbon Dioxide 33 mmol/L (22-29); Chloride 99 mmol/L (98-107); Estimated GFR-MDRD 58; Glucose 101 mg/dL (70-105); Potassium 4.2 mmol/L (3.5-5.1); Sodium 139 mmol/L (136-145)
[2017-08-12] MEDS: Amiodarone 200 MG TAB PO SCH (10:00)
[2017-08-12] MEDS: Lisinopril 5 MG TAB PO SCH (10:00)
[2017-08-12] MEDS: Carvedilol 6.25 MG TAB PO SCH ×2 (10:01→20:03)
[2017-08-12] MEDS: Spironolactone 25 MG TAB PO SCH (10:01)
[2017-08-12] MEDS: Enoxaparin Sodium 40 MG/0.4 ML SYRINGE SC SCH (10:02)
[2017-08-12] MEDS: Sodium Chloride 0.9% 10 ML ONE (10:04)
[2017-08-12] MEDS ORDERED: Metolazone 5 MG TAB PO SCH (10:45)
[2017-08-13 05:24] LABS: #Basophils 0.1 thou/uL (0.0-0.2); #Monocytes 0.7 thou/uL (0.11-0.59); %Basophils 0.6 % (0.0-1.0); %Eosinophils 0.1 % (0.0-10.0); %Lymphocytes 11.8 % (21.0-51.0); %Monocytes 7.7 % (0.0-10.0); %Neutrophils 79.7 % (42.0-75.0); Hemoglobin 12.5 g/dL (14.0-18.0); Mean Corpuscular HGB CONC 31.3 g/dL (32.0-36.0); Mean Corpuscular Hemoglobin 27.2 pg (27.0-31.0); Mean Corpuscular Volume 86.8 fl (80.0-94.0); Mean Platelet Volume 7.7 fL (7.4-10.4); Platelet Count 285 thou/uL (130-400); RBC Distribution Width 14.6 % (11.5-14.5); White Blood Cell (WBC) Count 8.8 thou/uL (4.8-10.8)
[2017-08-13 05:38] LABS: Anion Gap 11 mmol/L (10-20); BUN (Urea Nitrogen) 24 mg/dL (8.4-25.7); Calc. Creatinine Clearance 73 mL/min (70-130); Calcium 8.7 mg/dL (7.8-10.44); Carbon Dioxide 29 mmol/L (22-29); Chloride 99 mmol/L (98-107); Estimated GFR-MDRD 67; Glucose 110 mg/dL (70-105); Sodium 135 mmol/L (136-145)
--- NOTE | 2017-08-13 06:24 | PDOC.FM ---
- Objective Vital Signs & Weight: Vital Signs (12 hours) Temp Pulse Resp BP Pulse Ox 08/13/17 04:00 99.7 F H 83 18 110/71 92 L 08/12/17 20:00 99.5 F 91 18 108/76 96 Weight Weight 83.603 kg I&O: 08/11/17 08/12/17 08/13/17 06:59 06:59 06:59 Intake Total 1465 565 750 Output Total 5420 2200 1825 Balance -3735 -4812 -2806 Result Diagrams: 08/13/17 04:32 08/13/17 04:32 <Baldemar Ham - Last Filed: 08/13/17 06:23> - Subjective Subjective: The patient is feeling better today. He states he is ready to go home. - Objective Vital Signs & Weight: Vital Signs (12 hours) Temp Pulse Resp BP BP BP Pulse Ox 08/13/17 09:34 86 08/13/17 09:32 123/89 08/13/17 08:00 99.1 F 86 28 H 123/89 08/13/17 04:00 99.7 F H 83 18 110/71 92 L Weight Weight 82.299 kg I&O: 08/12/17 08/13/17 08/14/17 06:59 06:59 06:59 Intake Total 565 750 180 Output Total 2200 1825 625 Balance -0552 -7175 -445 Result Diagrams: 08/13/17 04:32 08/13/17 04:32 <Lina Julien - Last Filed: 08/13/17 10:56> Dx/Plan (1) Acute respiratory failure with hypoxia Code(s): J96.01 - ACUTE RESPIRATORY FAILURE WITH HYPOXIA Status: Acute (2) Acute on chronic heart failure Code(s): I50.9 - HEART FAILURE, UNSPECIFIED Status: Chronic (3) CKD (chronic kidney disease) stage 3, GFR 30-59 ml/min Status: Chronic (4) Cocaine abuse Code(s): F14.10 - COCAINE ABUSE, UNCOMPLICATED Status: Chronic (5) Non-ischemic cardiomyopathy Code(s): I42.9 - CARDIOMYOPATHY, UNSPECIFIED Status: Acute (6) Hypertension Code(s): I10 - ESSENTIAL (PRIMARY) HYPERTENSION Status: Chronic (7) Noncompliance with medication regimen Code(s): Z91.14 - PATIENT'S OTHER NONCOMPLIANCE WITH MEDICATION REGIMEN Status : Chronic (8) Superficial foreign body of left upper arm Code(s): S40.852A - SUPERFICIAL FOREIGN BODY OF LEFT UPPER ARM, INIT ENCNTR Status: Acute - Plan Plan: Acute on CHF (EF 06/06 15-20%) BNP- 6000s, Troponins and CKMB have since trended down. -Fluid restrict 1200 ml. IV lasix BID for last few days. Have switched to PO lasix BID. Pt having good urine output -Aspirin, Coreg, Spirinolactone. -Heart failure clinic and Cardiac Rehab consulted -Weaned off oxygen at this time. -Cardiology Consulted- Dr. Lal- will follow recs Lasix decreased to once a day. Added lisinopril possible discharge in next few days Non-ischemic Cardiomyopathy -Due to cocaine use -Plan as above HTN -continue home meds CKD 3 -At baseline. No fluids at this time. Continue to monitor BMP. -Cr trending down Cocaine Abuse -counseled on cessation Non-sustained Vtach Amiodarone Noncompliance -CM consulted to help with med assistance. -Discussed due to patients EF could possibly qualify for palliative or hospice care which would maybe help with med compliance -Palliative care consulted -Hospice consulted- Pt currently awaiting to talk with agency and talke about options. -Pt also seen multiple times in halls going and filling his water cup on his own. On fluid restriction yet still drinking his own fluids. Likely why we are not seeing great improvement. Foreign body in Left Arm -U/S shows old venous cathether in basillic vein. Pt said this occurred at the [facility] -CV surgery Consulted- Dr. Galarza- Appreciate recs -It is fibrosed. Nothing to do at this time. <Baldemar Ham - Last Filed: 08/13/17 06:23> Attending Addendum - Attending Addendum Date/Time: 08/13/17 5210 I personally evaluated the patient and discussed the management with Dr. Ham. I agree with the History, Examination, Assessment and Plan documented above with any addition or exceptions noted below. The patient is doing well and is back to baseline. will discharge home. <Lina Julien - Last Filed: 08/13/17 10:56>
[2017-08-13] MEDS ORDERED: Metolazone 5 MG TAB PO SCH (08:30)
--- NOTE | 2017-08-13 08:51 | CON ---
DATE OF SERVICE: 08/13/2017 SUBJECTIVE: Mr. Beckham is doing well. He states he is now back to his baseline. His baseline weight is in the 175-180. He is currently weighing 180 pounds. He has lost almost 20 pounds in the last se veral days. OBJECTIVE: VITAL SIGNS: Blood pressure 122/89, pulse 86, temperature 99. LUNGS: Clear to auscultation. HEART: Regular rate and rhythm. ABDOMEN: Soft, nontender, nondistended. EXTREMITIES: No edema. IMPRESSION: 1. Nonischemic cardiomyopathy. 2. Illicit drug use. RECOMMENDATIONS: Mr. Beckham did admit to once again using cocaine 2 days prior to his admission. He s tates he will no longer use drug, although he stated this in the past. I counseled him on taking crescencio ly weights and if his weight increases, he is to call our office or his primary care office. From my standpoint, it would be okay for discharge to home with close outpatient followup.
[2017-08-13] MEDS: Carvedilol 6.25 MG TAB PO SCH (09:32)
[2017-08-13] MEDS: Spironolactone 25 MG TAB PO SCH (09:33)
[2017-08-13] MEDS: Amiodarone 200 MG TAB PO SCH (09:33)
[2017-08-13] MEDS: Enoxaparin Sodium 40 MG/0.4 ML SYRINGE SC SCH (09:34)
[2017-08-13] MEDS: Lisinopril 5 MG TAB PO SCH (09:34)
[2017-08-13] MEDS: Furosemide 20 MG TAB PO SCH ×2 (10:32→14:31)
[2017-08-13] MEDS ORDERED: Furosemide 20 MG TAB PO SCH (14:00)
[2017-08-13 14:48] VITALS: BP 112/79; TEMP 98.2
--- NOTE | 2017-08-13 16:05 | DIS-2 ---
DATE OF ADMISSION: 08/08/2017 DATE OF DISCHARGE: 08/13/2017 ADMITTING ATTENDING: Dr. Conner. DISCHARGE ATTENDING: Lina Julien MD RESIDENT: Baldemar Ham MD, PGY1. CONSULTATIONS: Ascencion Lal MD with Cardiology, Dr. Oskar Galarza with CV Surgery. PROCEDURES: No procedures were done. IMAGING: Chest x-ray on 08/08/2017 showed CHF with marked enlargement of cardiac silhouette, patchy density at left lower lung zone. On 08/08/2017, a forearm x-ray showed punctate radiopaque densities at the distal forearm and vascular calcifications. A repeat chest x-ray on 08/09/2017 showed conges tive heart failure, pleural and parenchymal changes in the left lung base. Soft tissue ultrasound on 08/10/2017 showed positive for intravenous catheter fragment foreign body occluding the basilic vein at the proximal forearm and a repeat chest x-ray on 08/11/2017 showed comparison made with exam from 08/09/2017. Heart has large left-sided AICD, remains in place. There is pulmonary vascular congest ion. There is suggestive of left pleural effusion. No pneumothoraces are seen. PRIMARY DIAGNOSES: 1. Acute hypoxic respiratory failure secondary to acute congestive heart failure exacerbation with a n EF of 15% to 22%. 2. Cocaine abuse. 3. Acute kidney injury on top of chronic kidney disease, stage 3. 4. Hypertension. 5. Foreign body in his left arm. DISCHARGE MEDICATIONS: Include discontinue medications were Lasix 40 mg p.o. b.i.d. and Lasix IV 80 mg once daily. Medications at home were Lasix 60 mg p.o. b.i.d., acetaminophen 650 mg p.o. q.4 hours, amiodarone 200 mg p.o. daily, aspirin 81 mg p.o. daily, carvedilol 6.25 mg p.o. b.i.d., lisinopril 5 mg daily, meto lazone 5 mg p.o., spironolactone 12.5 mg p.o. daily, and atorvastatin 5 mg p.o. at bedtime. HISTORY OF PRESENT ILLNESS AND BRIEF HOSPITAL COURSE: This is a 57-year-old male with a past medical history of heart failure with an ejection fraction of 15-20% on echo on 06/09/2017 presented with 1- month history of progressively worsening lower extremity edema and also had increased orthopnea and p aroxysmal nocturnal dyspnea. Said that he had recently used cocaine 2-3 days prior to admission. St ates that he has been increasingly short of breath and having some chest pain on the left side, came in, requiring oxygen at 3 liters, did not use oxygen at home and the patient has stated that he had n ot followed up with Cardiology after discharge on 06/09/2017. We admitted him for acute respiratory failure secondary to congestive heart failure exacerbation. We started him on IV Lasix 40 mg IV b.i. d. started him back on his home medication of Coreg, spironolactone, aspirin, and carvedilol. We con sulted Heart Failure Clinic and education, consulted Cardiology, Dr. Lal, who would follow along . When he came in, his CK-MB was 7.8, elevated troponin was 0.068, which trended up to 0.091 to 0.09 9, finally down to 0.053, but his CK-MB would stay up at 7.6 and we continued trending troponin 0.065 to 0.058. This is the reason we consulted Cardiology as a CK-MB was elevated on top of his heart fa ilure. We put him on therapeutic Lovenox for the course of the night. Cardiology came and saw him a nd recommended that it was not anything acute. We put him back for regular Lovenox. Now, we will co ntinue his home medications, they would up his Lasix to 80 mg IV b.i.d. as the patient was severely f luid overloaded. We would continue to trend him over the next few days. Trend his I's and O's. He would continue to go from 89 kilograms down to 82 kilograms on discharge, pretty much all water weigh t and he would still have some pitting edema +1, but he was down from +3 pitting edema in his legs up on admission. We continued to wean him off oxygen over the course of his admission, he went from 3 l iters down to not needing any oxygen at all. At this time, we discharged him home. We also consulte d hospice huston here because due to his ejection fraction had qualified him for hospice care, this wou ld probably help him with getting his medicines and getting taken care of so he would not be such rec urrent admission. They currently still working on getting that set up. Also notes here, his creatin ine was 1.52. It seemed to be around his baseline. It will go to 1.43, 1.40, 1.57, 1.50, 1.33 and h is GFR would stay around his chronic kidney disease, stage 3. The patient did well the remainder day s easier. We eventually switched his Lasix to 60 mg p.o. b.i.d. He tolerated it the day before disc harge. On the day of discharge, he said he was doing better, felt like he was ready to go home. Vit al signs were stable and started him back on all his own heart medicines at this time. We discharged him home. DISPOSITION: Stable. DISCHARGE LOCATION: Home. ACTIVITY: As tolerated. DIET: Fluid restriction, heart healthy diet, low sodium. FOLLOWUP: He will need to follow up with Cardiology closely as outpatient. He will follow up with h is primary care doctor within 14 days of hospital followup.
== END 2017-08-13 14:49 | disposition home or self-care (01) | DRG 291 ==
LOC: ERS 15:38 → 2NO 17:20
PROVIDERS: ADMIT Family Medicine; ATTEND Family Medicine
DX: I13.0 Hypertensive heart and chronic kidney disease with heart failure and stage 1 through stage 4 chronic kidney disease, or unspecified chronic kidney disease (principal); I50.23 Acute on chronic systolic (congestive) heart failure; J96.01 Acute respiratory failure with hypoxia; N17.9 Acute kidney failure, unspecified; N18.3 Chronic kidney disease, stage 3 (moderate); F14.10 Cocaine abuse, uncomplicated; I42.9 Cardiomyopathy, unspecified; E78.5 Hyperlipidemia, unspecified; I34.0 Nonrheumatic mitral (valve) insufficiency; I25.10 Atherosclerotic heart disease of native coronary artery without angina pectoris; M79.5 Residual foreign body in soft tissue; Z91.14 Patient's other noncompliance with medication regimen; Z95.810 Presence of automatic (implantable) cardiac defibrillator; Z79.82 Long term (current) use of aspirin; Z79.899 Other long term (current) drug therapy
CPT/HCPCS: 36415; 36416; 71045; 71046; 76999; 80048; 80053; 80061; 82550; 82553; 82805; 83735; 83880; 84484; 85025; 85379; 93005; 93010; 93798; 94640; 96374; 96375; A4216; J1650; J1940; J2930; J7620

== ENCOUNTER 2017-09-06 12:28 | Inpatient (IN) | payer MEDICARE ==
[2017-09-06 13:13] LABS: #Lymphocytes 1.1 thou/uL (1.20-3.40); #Monocytes 0.6 thou/uL (0.11-0.59); #Neutrophils 5.9 thou/uL (1.40-6.50); %Basophils 0.4 % (0.0-1.0); %Eosinophils 0.1 % (0.0-10.0); %Lymphocytes 14.9 % (21.0-51.0); %Monocytes 7.7 % (0.0-10.0); %Neutrophils 76.9 % (42.0-75.0); Hemoglobin 12.7 g/dL (14.0-18.0); Mean Corpuscular HGB CONC 32.3 g/dL (32.0-36.0); Mean Corpuscular Hemoglobin 27.8 pg (27.0-31.0); Mean Corpuscular Volume 86.2 fl (80.0-94.0); Mean Platelet Volume 7.8 fL (7.4-10.4); Platelet Count 220 thou/uL (130-400); RBC Distribution Width 16.5 % (11.5-14.5); Red Blood Cell (RBC) Count 4.55 mill/uL (4.70-6.10); White Blood Cell (WBC) Count 7.6 thou/uL (4.8-10.8)
--- NOTE | 2017-09-06 13:16 | CT ---
NONCONTRAST HEAD CT: Date: 09/06/17 HISTORY: Stroke alert. Aphasia. COMPARISON: None. TECHNIQUE: Noncontrast head CT is performed from skull base to skull vertex. FINDINGS: Evaluation is limited by motion. There is evidence of remote insult involving the right frontal lobe with malacic change. Remainder of the cerebrum demonstrates preservation of cortical whitfield-white matte r differentiation. There are white matter hypodensities due to chronic small vessel ischemic change. Remote insult to the white matter involving the left occipital lobe is noted. No parenchymal hemorrha ge. No extra-axial hematoma. No midline shift. Basilar cisterns are patent. Calvarium is intact. Adequate aeration of the sinuses and mastoid air cells. IMPRESSION: No acute intracranial process. Results of study discussed with Dr. Whittington on 09/06/17 at 1245 hours. CODE CR. POS: [facility]
[2017-09-06 13:19] LABS: INR-International Normal Ratio 1.2; PTT 31.1 SEC (22.9-36.1); Prothrombin Time 14.9 SEC (12.0-14.7)
[2017-09-06 13:28] LABS: CKMB 5.5 ng/mL (0-6.6); Troponin I 0.051 ng/mL (< 0.028)
[2017-09-06 13:29] LABS: ALT (SGPT) 17 U/L (8-55); AST (SGOT) 27 U/L (5-34); Albumin 3.4 g/dL (3.5-5.0); Alkaline Phosphatase 67 U/L (40-150); Anion Gap 14 mmol/L (10-20); BUN (Urea Nitrogen) 33 mg/dL (8.4-25.7); CK (CPK) 204 U/L (30-200); Calc. Creatinine Clearance 0 mL/min (70-130); Calcium 8.6 mg/dL (7.8-10.44); Carbon Dioxide 23 mmol/L (22-29); Chloride 105 mmol/L (98-107); Estimated GFR-MDRD 59; Globulin 3.8 g/dL (2.4-3.5); Glucose 169 mg/dL (70-105); Potassium 4.4 mmol/L (3.5-5.1); Protein, Total 7.2 g/dL (6.0-8.3); Sodium 138 mmol/L (136-145)
--- NOTE | 2017-09-06 13:44 | CT ---
CT ANGIOGRAM OF HEAD CT ANGIOGRAM OF NECK CT PERFUSION: Date: 09/06/17 HISTORY: Aphasia. Last seen normal 1.5 hours ago. COMPARISON: None. TECHNIQUE: CT angiogram of the head and neck were performed in the axial plane. Sagittal and coronal three-dimen sional reformatted images are submitted for interpretation. CT perfusion imaging is performed in the axial plane. FINDINGS: POSTCONTRAST HEAD CT: Redemonstration of white matter changes due to chronic small vessel ischemic changes, along with rede monstration of malacic change involving the right frontal lobe and left occipital temporal white yolanda er. Remainder of the cerebrum demonstrates preservation of cortical whitfield-white matter differentiation . Bilateral ocular lenses are appropriately located. Both globes are intact. Retrobulbar fat is preserv ed. Adequate aeration of the sinuses and mastoid air cells. Aerodigestive tract is patent. No mucosal abnormality. Symmetric attenuation of the sternocleidomastoid muscles. Symmetric attenuation of the parotid and rodríguez bmandibular glands. No evidence of lymphadenopathy by size criteria. Midline fatty raphe of the tongue is preserved. Epiglottis has a normal caliber. No prevertebral soft tissue swelling. Cervical spine vertebral body height is maintained. No fracture. Varying degrees of central canal stenosis and foraminal narrowing on the basis of degenerative change. Upper mediastinum is unremarkable. Presumed chronic changes in the visualized upper lungs. CT ANGIOGRAM: There is appropriate enhancement and luminal diameter of the aortic arch. Small foci of calcified shilo que are noted. Right Carotid: The origin of the right carotid artery has appropriate enhancement and luminal diamet er. The innominate artery, common carotid artery, carotid bifurcation, and right internal carotid art julia have appropriate enhancement and luminal diameter. Left Carotid: The origin of the left carotid artery has appropriate enhancement and luminal diameter . The left common carotid artery, carotid bifurcation, and left internal carotid artery have appropri ate enhancement and luminal diameter. Both cervical vertebral arteries are patent throughout their course in the neck. Left vertebral arter y is dominant. Visualized subclavian arteries are also unremarkable. CT ANGIOGRAM OF HEAD: There is symmetric enhancement and luminal diameter involving both petrous segments. There is atheros clerosis involving both cavernous and paraclinoid segments. There may be short segment moderate steno sis involving the right paraclinoid segment and short segment moderate to severe stenosis involving t he left paraclinoid segment. Anterior Circulation: The right A1 segment is slight diminutive, likely congenital. There is symmetr ic enhancement and luminal diameter of the A2 segments. There is symmetric enhancement and luminal di ameter of the M1 segments and proximal MCA branches. Posterior Circulation: Both PICA artery origins are unremarkable. Both vertebral arteries supply nor mal appearing basilar artery. There is appropriate enhancement and luminal diameter. The left and rig ht P1 segments have symmetric enhancement and luminal diameter. No evidence of increased mean transit time. No evidence of decreased blood flow or decreased blood vo lume. No evidence of penumbra. IMPRESSION: 1. Unremarkable CT angiogram of head and neck. 2. No CT evidence of penumbra. Results of study discussed with Dr. Whittington on 09/06/17 at 1305 hours. CODE CR. POS: KIMBERLY
--- NOTE | 2017-09-06 13:59 | RAD ---
SINGLE VIEW OF THE CHEST: HISTORY: Altered mental status. COMPARISON: 08/08/2017 FINDINGS: A single view of the chest shows an enlarged cardiomediastinal silhouette. There is a pacemaker with its tip in the right ventricle. There is no evidence of consolidation, mass, or pleural effusion. IMPRESSION: Stable cardiomegaly. POS: DARRELL
[2017-09-06] MEDS ORDERED: Guaifenesin DM 100-10/5 ML UDCUP PO PRN (14:39)
[2017-09-06] MEDS ORDERED: Acetaminophen 325 MG TAB PO PRN (14:39)
[2017-09-06] MEDS ORDERED: Ondansetron HCl/PF 4 MG/2 ML Vial IVP PRN (14:39)
[2017-09-06] MEDS ORDERED: Sodium Chloride 0.9% 1,000 ML IV SCH (14:45)
--- NOTE | 2017-09-06 17:11 | CON ---
DATE OF CONSULTATION: 09/06/2017 CONSULTING PHYSICIAN: Hospitalist group. REASON FOR CONSULTATION: Stroke. HISTORY OF PRESENT ILLNESS: The patient is a 57-year-old male, who presented to the emergency room t anette with the inability to talk. He also had right-sided arm and leg weakness. He was given TPA. Anika pillai has had some improvement in his right arm and right leg function, but his aphasia has persisted. T he patient underwent a CT of the head and a CT angiogram of the head, both of which were nondiagnosti c. He is currently in the CCU, unable to communicate, although he is alert. PAST MEDICAL HISTORY: 1. Congestive heart failure with low EF. 2. Hypertension. 3. Chronic kidney disease, stage 3. 4. Cocaine abuse. 5. Mitral regurgitation. PAST SURGICAL HISTORY: 1. Defibrillator placement, 2. Knee surgery. ALLERGIES: None. MEDICATIONS: Prior to admission, spironolactone, Zaroxolyn, Zestril, Lasix, Coreg, Lipitor, aspirin, Cordarone, acetaminophen. SOCIAL HISTORY: Apparently uses cocaine. Does not smoke. Does not consume alcohol. REVIEW OF SYSTEMS: Unobtainable secondary to patient's expressive aphasia. PHYSICAL EXAMINATION: VITAL SIGNS: Temperature 98.2, pulse 82, respirations 12, blood pressure 136/113, O2 sat 98% on 2 li ters. GENERAL: He is awake. He is frustrated and has inability to talk. HEENT: Pupils 3 mm, reactive. Sclerae icteric. Oropharynx, he does have a gag reflex when stimulat ed. CARDIOVASCULAR: S1 and S2 regular with a 2/6 systolic murmur. LUNGS: Clear without wheezing or rhonchi. NECK: No JVD. No carotid bruits. ABDOMEN: Soft and nontender. EXTREMITIES: No clubbing, cyanosis, or edema. NEUROLOGIC EXAM: Patient's muscle strength is 4/5, right arm and right leg; 5/5, left arm and left l eg. Expressive aphasia is noted. LABORATORY DATA: White blood count 7.6, hematocrit 39.3, platelet count 220. INR 1.2. Sodium 138, potassium 4.4, chloride 105, CO2 of 23, BUN 33, creatinine 1.5, glucose 169. Troponin 0.051. CT was reviewed. ASSESSMENT: 1. Likely ischemic stroke. 2. History of cocaine abuse. 3. History of congestive heart failure with low ejection fraction. 4. History of hypertension. PLAN: The patient received TPA in the emergency room. He has had some recovery in his right arm and right leg function, although the aphasia has persisted. He is continuing to receive aspirin. Neuro logy has been consulted. Stroke rehabilitation will probably be initiated tomorrow. I have reviewed the chart. Agree with current orders in place and be happy to follow with you as long as the patien t is in the ICU.
[2017-09-06] MEDS ORDERED: Lorazepam 2 MG/ML VIAL SLOW IVP SCH (18:00)
[2017-09-06] MEDS: Acetaminophen 1,000 MG in Premix Bag 1 BAG IVPB PRN (18:06)
[2017-09-06 18:24] LABS: Medtox Reader # READER 1; Phencyclidine (PCP) Not Detected (NotDetected); THC/Cannabinoid Screen Not Detected (NotDetected)
[2017-09-06 18:25] LABS: Amphetamine Not Detected (NotDetected); Barbiturates Screen Not Detected (NotDetected); Benzodiazepine Screen Not Detected (NotDetected); Cocaine Metabolite Screen Detected (NotDetected); Medtox Control Line Valid? VALID (VALID); Methadone Not Detected (NotDetected); Methamphetamine Not Detected (NotDetected); Opiate Screen Not Detected (NotDetected); Oxycodone Screen Not Detected (NotDetected); Tricyclic Screen Not Detected (NotDetected)
[2017-09-06] MEDS ORDERED: hydrALAZINE 20 MG/ML VIAL SLOW IVP PRN (20:16)
[2017-09-06] MEDS: Atorvastatin Calcium 10 MG TAB PO SCH (20:26)
[2017-09-06] MEDS: Docusate 100 MG CAP PO SCH (20:58)
[2017-09-06] MEDS: Carvedilol 6.25 MG TAB PO SCH (20:58)
[2017-09-06] MEDS: Famotidine 20 MG TAB PO SCH (20:59)
[2017-09-06] MEDS: Lorazepam 2 MG/ML VIAL SLOW IVP PRN (23:50)
[2017-09-07] MEDS ORDERED: Lorazepam 2 MG/ML VIAL SLOW IVP SCH ×2 (04:00→04:02)
--- NOTE | 2017-09-07 04:09 | PDOC.EVN ---
Event Note - Event Note Event Note: event: agitation Patient has been attempting to get out of bed and is difficult to re-direct by both staff and family @ bedside. Pt is currently vocalizing but not verbalizing. He has been trialed on 1mg IV q4H without apparent benefit, his NIH scales have remained grossly unchanged from post-tPA until now other than the addition of agitation. Family @ bedside is not clear if he may have been on any other illicit drugs besides cocaine - they also note that he had claimed to have stopped cocaine use but clearly had not. Exam vocalizing, non verbal, NAD, moving b/l LE, moving LUE s1 s2 no m/r/g, pulses 2+ b/l UE, no pitting pedal edema coarse throughout ant, reasonable air mvmt, no w/r/r + bs, soft, not apparently ttp, has smeared BM throughout - pt is apparently not controlling his fecal matter consistently Karimi + grossly red urine; pt has been pulling on his Karimi throughout the evening AMS Unclear how much is attributable to stroke vs withdrawal phenomenon (UDS only + cocaine) ? atypical sz type activity. Increase ativan dosing with close monitoring of VSS and hemodynamic stability. Neurology is already on board. Appreciate PCCM c/s. If any noted decrease in NIH scaling, low threshold to repeat CT head Check UA, CBC, BMP in AM d/w bedside nsg and pt's family
[2017-09-07] MEDS ORDERED: Ziprasidone 20 MG VIAL IM SCH (04:30)
[2017-09-07] MEDS ORDERED: Sodium Chloride For Inhalation 0.9% 3 ML NEB ONE (04:35)
[2017-09-07] MEDS ORDERED: Bacteriostatic Normal Saline 30 ML VIAL ONE (04:35)
[2017-09-07] MEDS: Lorazepam 2 MG/ML VIAL SLOW IVP PRN ×3 (07:09→16:07)
--- NOTE | 2017-09-07 07:37 | HP ---
REASON FOR ADMISSION: Acute right hemiparesis status post TPA, aphasia. HISTORY OF PRESENT ILLNESS: Please note majority of this history is obtained by my talking to patient's girlfriend of 16 years as patient is aphasic and cannot communicate. Around 11:00 a.m., the patient started to cry and could not talk. The girlfriend had just seen him 5 minutes before this and he was normal and in fact had his breakfast. He started to have left-sided facial droop and he was on his knees and tapping the girlfriend in distress. He was also holding his right arm limp. The girlfriend called 911, but apparently they hung up after a brief conversation. She tried calling her neighbour. The neighbour put him in the car and the patient was brought here in private vehicle to the Emergency Room. He apparently walked himself into the ER per the girlfriend. As patient was within the window of 3 hours, he was given TPA for right hemiparesis based on clinical exam and initial CT brain/stroke protocol. Per Dr. Maldonado, the patient has improved significantly with his right upper extremity and lower extremity strength. He is able to move after TPA was administered. He is still aphasic and cannot communicate. PAST MEDICAL AND SURGICAL HISTORY: History of CHF, hypertension, CKD, history of cocaine abuse, severe mitral regurgitation, AICD, knee surgery, coronary artery disease, prior history of right knee septic arthritis, cardiac catheterization in 07/2015, ejection fraction of 15% to 20% based on echo done in 05/2017. CURRENT MEDICATIONS: The patient is on amiodarone 200 mg p.o. daily, aspirin 81 mg p.o. daily, atorvastatin 5 mg p.o. at bedtime, Coreg 6.25 mg p.o. twice daily, Lasix 60 mg p.o. twice daily, lisinopril 5 mg twice daily, metolazone 5 mg daily, spironolactone 12.5 mg daily. ALLERGIES: No known drug allergies. PERSONAL HISTORY: The girlfriend says he does not abuse alcohol or drugs, but based on prior records, the patient has ongoing cocaine abuse and he quit smoking and marijuana. The patient's girlfriend denies him using alcohol. He normally ambulates by himself without any assistive devices. FAMILY HISTORY: Mother of CVA and its complications in her 70s. Father in his 70s as well and had diabetes. REVIEW OF SYSTEMS: Cannot be obtained as the patient is aphasic and has right hemiparesis with acute CVA. PHYSICAL EXAMINATION: GENERAL: The patient is a 57-year-old male, who is currently in moderate distress due to aphasia. VITAL SIGNS: Blood pressure 132/90, pulse 90 per minute, respiratory rate 16 per minute, temperature 97.6 degrees Fahrenheit, saturating 95% on 2 liters nasal cannula. NECK: Supple, no elevated JVD. HEENT: Eyes: Extraocular muscles intact. Pupils are reacting to light. Oral cavity: Mucous membranes are moist. No exudates or congestion. CARDIOVASCULAR: S1, S2 heard. Regular rhythm. RESPIRATORY: Air entry 1+ bilateral. Scattered rhonchi plus no rales. ABDOMEN: Soft, bowel sounds heard. No tenderness, rigidity or guarding. EXTREMITIES: No peripheral edema or calf tenderness. VASCULAR SYSTEM: Peripheral pulses 1+ bilateral, no ischemic ulcerations or gangrene. CENTRAL NERVOUS SYSTEM: The patient has right hemiparesis with strength of 2-3/ 5 in right upper extremity and 3-4/5 in right lower extremity, moves his left upper and lower extremity freely. Please note, the patient is right handed, has aphasia and seventh nerve palsy. There is flattening of nasolabial fold on the right side. PSYCHIATRIC: Cannot be assessed due to the patient's current aphasia and him being emotionally disturbed and unable to communicate. No obvious hallucinations seen. LABORATORY AND X-RAY FINDINGS: CT angiogram of the head and neck done was unremarkable. There was no evidence of penumbra. CT brain without contrast done showed no acute intracranial process. There is evidence of remote insult involving right frontal lobe with malacic change. There is also remote insult of the white matter involving left occipital lobe. No hematoma or hemorrhage was seen. Chest x-ray done showed cardiomegaly, but no acute infiltrate. EKG was done showed sinus rhythm at 81 beats per minute. There is LVH strain pattern seen. There is Q-wave seen in inferior wall leads II, III, aVF. BUN is 33, creatinine 1.4, glucose 169. Electrolytes are stable. Liver enzymes are within normal limits. CK level is 204, CK-MB 5.5, troponin I 0.05. Albumin is 3.4. PT/INR is 14 and 1.2. White count of 7, hemoglobin and hematocrit 12 and 39, platelet count 220, MCV is 86 with 76% neutrophils. CLINICAL IMPRESSION AND PLAN: The patient will be admitted to ICU, status post TPA for acute right hemiparesis. The patient is rapidly improving based on initial presentation with a complete hemiplegia on the right side and now has strength of around 3 in the right upper extremity and around 3-4 in right lower extremity. He still is aphasic. He will be on aspirin rectal until he is cleared for swallowing by Speech. He will be on normal saline at 50 mL per hour. Once he is able to swallow, he will be placed on Lipitor, Coreg, lisinopril, and amiodarone as before. Complete Stroke Team consultations will be requested with PT, OT, and Speech. A urine drug screen is pending. The patient has been positive for cocaine right from 2011 onwards on multiple hospitalizations here. Neurology consultation with Dr. Duyen Cortez will be requested as well. We will continue to closely monitor him in ICU post-TPA protocol. Echo with 2D Doppler for left ventricular function will also be obtained. His prior ejection fraction was 15% to 20% with moderate to severe mitral regurgitation and moderate to severe tricuspid regurgitation as well. CODE STATUS: FULL. I have given complete updates to his girlfriend of 16 years at bedside. His brother is VERÓNICA, he was given updates by over phone in ER. [facility]
[2017-09-07] MEDS: Dextrose 5 %-0.45 % NaCl 1,000 ML IV SCH ×2 (08:38→16:24)
[2017-09-07] MEDS: Carvedilol 6.25 MG TAB PO SCH ×2 (08:38→20:41)
[2017-09-07] MEDS: Docusate 100 MG CAP PO SCH ×2 (08:39→20:41)
[2017-09-07] MEDS: Famotidine 20 MG TAB PO SCH ×2 (08:39→20:42)
[2017-09-07] MEDS: Lisinopril 5 MG TAB PO SCH (08:42)
[2017-09-07] MEDS ORDERED: Aspirin 325 mg Enteric Coated Tablet PO SCH (09:00)
[2017-09-07] MEDS ORDERED: FLU VACC QS2017-18 36 mo. & older 0.5 ML SYRINGE IM ONE (09:00)
[2017-09-07] MEDS ORDERED: Amiodarone In Dextrose 200 ML IVPB SCH (09:00)
[2017-09-07] MEDS ORDERED: Amiodarone 200 MG TAB PO SCH (09:00)
[2017-09-07] MEDS: Acetaminophen 1,000 MG in Premix Bag 1 BAG IVPB PRN (09:10)
[2017-09-07] MEDS: Haloperidol Lactate 5 MG/ML VIAL IM PRN ×2 (09:11→16:06)
[2017-09-07] MEDS: Amiodarone HCl 450 MG, Admixture Fee 1 EACH in Dextrose 5% in Water 250 ML IVPB SCH (09:20)
--- NOTE | 2017-09-07 09:26 | PRG ---
DATE OF SERVICE: 09/07/2017 The patient remains in the Critical Care Unit. He has become encephalopathic to the point of demonst rating behavior that looks consistent with alcohol withdrawal. PHYSICAL EXAMINATION: VITAL SIGNS: Temperature is 98.0, pulse 110, blood pressure 157/124, 24 hour intake 673, output 1245 . HEENT: Pupils react. Sclerae are anicteric. Oropharynx clear. NECK: No JVD. LUNGS: Clear. CARDIAC: S1 and S2 regular to tachycardic. ABDOMEN: Soft, nontender. EXTREMITIES: No edema. NEUROLOGIC: He is still hemiparetic on the right side and continues to be aphasic. LABORATORY DATA: White blood cell count 7.6, hematocrit 39.3, platelet count 220. INR 1.2, PTT 31.1 . Sodium 138, potassium 4.4, chloride 105, CO2 23, BUN 33, creatinine 1.4, glucose 169. Troponin 0. 05. ASSESSMENT: 1. Cerebrovascular accident. He is now status post t-PA. He has recovered some right-sided arm and leg function, but continues to be aphasic. 2. Probable alcohol withdrawal versus other substance. RECOMMENDATIONS: 1. Treat him with Ativan as needed for the agitation. 2. Await Neurology recommendations regarding the stroke. 3. Change IV fluids.
[2017-09-07] MEDS: Multivitamins, Adult 10 ML, Folic Acid 1 MG, Thiamine HCl 100 MG in Dextrose 5 %-0.45 %... IV SCH (09:28)
--- NOTE | 2017-09-07 09:52 | CON ---
DATE OF CONSULTATION: 09/06/2017 REFERRING PROVIDER: Dr. Adam Fung. REASON FOR CONSULTATION: Right hemiparesis and aphasia. HISTORY OF PRESENT ILLNESS: Mr. Beckham is a pleasant 57-year-old - [place] male, who has been consulted for evaluation of right hemiparesis and aphasia. History is limited as the patient is unable to provide and there are no family members present at bedside. Apparently, patient presented with the acute onset of right hemiparesis and aphasia. He was brought in by his family members to the [facility]. He was within the window for IV TPA and had a CT angiogram and CT perfusion scan as well along with a CT head without contrast, which showed no evidence of intracranial or extracranial vascular abnormality. There was no evidence of penumbra. Given that he was a candidate for IV TPA, he was given IV TPA, the patient on my evaluation was very drowsy. According to the nurse, he was extremely agitated and combative and for this reason, he was given 0.5 mg of Ativan IV and since then he has been very lethargic and sleepy. PAST MEDICAL HISTORY: Significant for hypertension, chronic kidney disease, congestive heart failure, history of cocaine abuse, mitral regurgitation. PAST SURGICAL HISTORY: Significant for defibrillator placement, knee surgery. CURRENT MEDICATIONS: Please review MAR. ALLERGIES: No known drug allergies. SOCIAL HISTORY: He does not smoke or drink alcohol. He does have a history of cocaine use. FAMILY HISTORY: None contributory. REVIEW OF SYSTEMS: Unable to obtain. PHYSICAL EXAMINATION: VITAL SIGNS: Blood pressure of 124/102, pulse of 88, temperature of 97.4, respirations of 21, O2 sats of 89% on 2 liter nasal cannula. GENERAL: Obtunded -Cypriot male, in no apparent distress. RESPIRATORY: Clear to auscultation bilaterally. CARDIOVASCULAR: Regular rate and rhythm. NEUROLOGIC: Mental status: The patient is obtunded. He does not wake up to verbal stimuli. He does grimace and resist me with noxious stimuli. Cranial nerves: Pupils are 3 mm and reactive. I was unable to perform the rest of the exam as patient was noncooperative. IMAGING STUDIES: CT angiogram of the head and neck, CT head without contrast and CT perfusion scans were reviewed. Findings are as noted in HPI. IMPRESSION: 1. Acute left middle cerebral artery ischemic infarct. 2. Right hemiparesis, due to #1. 3. Aphasia, due to #1. 4. Hypertension. ASSESSMENT AND PLAN: Mr. Beckham is a pleasant 57-year-old -[place] male who presented with an acute onset of right hemiparesis and aphasia. He is status post IV TPA. I was not able to perform neurological exam as he was given Ativan for his agitation. At this time, I will recommend continuing current medical management. He will need to be monitored in the ICU for the next 24 hours. We will avoid any form of antiplatelet or anticoagulation therapy for 24 hours post-TPA. I will recommend obtaining CT head without contrast on tomorrow morning. Continue current medical management. Continue supportive care. Consult PT, OT, and speech therapy. Permissive hypertension treatment. MTDD
--- NOTE | 2017-09-07 11:44 | CON ---
DATE OF CONSULTATION: 09/07/2017 HISTORY: The patient is a 57-year-old gentleman with a history of cardiomyopathy who presented with acute loss of consciousness. The patient has a long history of a nonischemic cardiomyopathy. The patient was seen initially in 2013. He had placement of implantable cardiac defibrillator. He has previously undergone a cardiac catheterization, which revealed him to have a nonischemic cardiomyopathy. The patient underwent a cardiac catheterization in 07/2015, revealed him to have 40% LAD lesion. The left circumflex artery was free of significant disease, right coronary artery was free of significant disease. The patient has been on medical therapy. He had a followup echocardiogram done in May which revealed ejection fraction of only 15-20% . The patient presented with acute altered mental status. He was unable to give any type of coherent history. PAST MEDICAL HISTORY: 1. Cardiomyopathy. 2. Hypertension. 3. History of substance abuse. PAST SURGICAL HISTORY: Knee surgery. ALLERGIES: None. MEDICATIONS: See nursing list. SOCIAL HISTORY: Long history of cocaine abuse. PHYSICAL EXAMINATION: GENERAL: This is a confused gentleman, he is unable to give any coherent type of history. VITAL SIGNS: Blood pressure was 157/124, heart rate was 100. NECK: Showed no jugular venous distention. LUNGS: Coarse breath sounds bilateral. HEART: Regular rate and rhythm, normal S1, S2, 1/6 soft murmur. ABDOMEN: Nondistended. EXTREMITIES: Showed trace edema. LABORATORY DATA: White blood cell count 7.6, hemoglobin 12.7, hematocrit 39.3, platelets 220. Sodium is 138, potassium 4.4, chloride 105, bicarbonate 23, BUN 33, creatinine 1.48, troponin 0.051. His EKG revealed him to have normal sinus rhythm, left axis deviation, Q-waves suggestive of a possible previous inferior infarction. IMPRESSION: 1. Status post cerebrovascular accident. 2. Nonischemic cardiomyopathy. 3. Coronary artery disease. 4. Hypertension. 5. Cocaine abuse. This patient is status post a CVA. He was using cocaine prior to this event. At this time, he is unable to take any p.o. medications. We will start the patient on IV amiodarone to slow the patient's heart rate and to slowly decrease his blood pressure. The patient was to be switched to aspirin per rectum. We will check the patient's echocardiogram for evidence of a thrombus. We will follow this patient with you through his hospitalization. Critical care consult: 30 minutes TATIANA
[2017-09-07] MEDS ORDERED: Aspirin 300 MG Suppository PR SCH (15:00)
[2017-09-07 16:25] LABS: #Lymphocytes 1.1 thou/uL (1.20-3.40); #Monocytes 0.8 thou/uL (0.11-0.59); #Neutrophils 7.7 thou/uL (1.40-6.50); %Basophils 0.2 % (0.0-1.0); %Eosinophils 0.1 % (0.0-10.0); %Lymphocytes 11.2 % (21.0-51.0); %Monocytes 7.8 % (0.0-10.0); %Neutrophils 80.7 % (42.0-75.0); Hemoglobin 13.8 g/dL (14.0-18.0); Mean Corpuscular HGB CONC 30.9 g/dL (32.0-36.0); Mean Corpuscular Volume 87.5 fl (80.0-94.0); Mean Platelet Volume 7.6 fL (7.4-10.4); Platelet Count 233 thou/uL (130-400); RBC Distribution Width 17.2 % (11.5-14.5); Red Blood Cell (RBC) Count 5.12 mill/uL (4.70-6.10); White Blood Cell (WBC) Count 9.5 thou/uL (4.8-10.8)
[2017-09-07 16:49] LABS: Anion Gap 18 mmol/L (10-20); BUN (Urea Nitrogen) 29 mg/dL (8.4-25.7); Calc. Creatinine Clearance 70 mL/min (70-130); Calcium 9.1 mg/dL (7.8-10.44); Carbon Dioxide 18 mmol/L (22-29); Cardiac Risk 6.2 (Less than 4.5); Chloride 106 mmol/L (98-107); Cholesterol 179 mg/dl (< 200 Desired); Estimated GFR-MDRD 64; Glucose 126 mg/dL (70-105); HDL Cholesterol 29 mg/dL (>60 Neg Risk); LDL Cholesterol, Calculated 133 mg/dL; Potassium 4.9 mmol/L (3.5-5.1); Sodium 137 mmol/L (136-145); Triglycerides 85 mg/dL (Less than 150)
--- NOTE | 2017-09-07 20:33 | PRG ---
DATE OF SERVICE: 09/07/2017 SUBJECTIVE: Mr. Beckham is a 57-year-old male, who presented with an acute onset right hemipare sis and aphasia. He had increasing episodes of agitation overnight and had to be given multiple dose s of Ativan along with Geodon. He was also given Haldol this morning. According to the nurse, he ramirez s a poor cardiac function and has central apnea syndrome. When he sleeps, he tends to wake up in bet ween, becomes very agitated, requires a sedative medication and then he has an apneic episodes during his sleep and heavy breathing. His aphasia and right upper extremity weakness has not changed. PHYSICAL EXAMINATION: VITAL SIGNS: Blood pressure 138/106, pulse of 96, temperature of 99, respirations of 50 with O2 sats of 92%. GENERAL: Drowsy appearing -Gambian male, in no apparent distress. RESPIRATORY: Clear to auscultation bilaterally. CARDIOVASCULAR: Regular rate and rhythm. NEUROLOGIC: Unable to evaluate. The patient was given sedative medication just few minutes before m y examination. ASSESSMENT: 1. Left hemisphere stroke. 2. Right hemiparesis, due to left hemisphere stroke. 3. Aphasia, due to left hemisphere stroke. 4. Congestive heart failure. PLAN: Mr. Beckham is a 57-year-old -[place] male who presented with the acute onset right hemip aresis and aphasia. His stroke is likely secondary to underlying medical risk factors. At this time , I would recommend starting him on aspirin for secondary stroke prevention. Continue supportive car e. Continue medical management. No further neurological workup needed from my standpoint, I will si gn off. Please call if there are any questions or concern.
[2017-09-07] MEDS: Atorvastatin Calcium 10 MG TAB PO SCH (20:41)
[2017-09-08] MEDS: Amiodarone HCl 450 MG, Admixture Fee 1 EACH in Dextrose 5% in Water 250 ML IVPB SCH (00:34)
[2017-09-08] MEDS: Haloperidol Lactate 5 MG/ML VIAL IM PRN ×2 (02:31→11:07)
[2017-09-08] MEDS: Lorazepam 2 MG/ML VIAL SLOW IVP PRN ×2 (02:31→11:18)
[2017-09-08] MEDS: Dextrose 5 %-0.45 % NaCl 1,000 ML IV SCH ×3 (04:56→21:08)
[2017-09-08] MEDS ORDERED: Midazolam HCl 2 mg/2 ml Vial ONE (06:07)
[2017-09-08] MEDS ORDERED: Fentanyl 250 MCG/5 ML VIAL ONE ×2 (06:07)
--- NOTE | 2017-09-08 07:48 | PDOC.PULPN ---
Progress Note: Subj/Obj - Subjective Date: 09/08/17 Time: 07:47 Narrative: Fairly calm this am. Sleeping - Objective Allergies/Adverse Reactions: Allergies Allergy/AdvReac Type Severity Reaction Status Date / Time No Known Allergies Allergy Verified 08/08/17 22:22 MAR Reviewed: Yes Vital Signs: Vital Signs Temp 97.2 F L 09/08/17 07:00 Pulse 94 09/07/17 20:00 Resp 30 H 09/07/17 20:00 BP 157/124 H 09/07/17 20:41 Pulse Ox 92 L 09/07/17 20:00 Intake & Output 09/07/17 09/08/17 09/08/17 18:59 06:59 18:59 Intake Total 1101 1385 Output Total 470 250 0 Balance 631 1135 0 Weight 181 lb 14.102 oz Intake: Intake, IV Amount 1101 1385 Acetaminophen 1,000 mg In 100 Premix Bag 1 bag @ 400 mls/hr IVPB Q6H PRN Rx#: [id number] Amiodarone HCl 450 mg 150 198 Admixture Fee 1 each In Dextrose 5% in Water 250 ml @ As Directed IVPB INF [facility] Rx#:[id number] Dextrose 5 %-0.45 % NaCl 1187 1,000 ml @ 100 mls/hr IV .Q10H [facility] Rx#:[id number] Multivitamins, Adult 10 851 ml Folic Acid 1 mg Thiamine HCl 100 mg In Dextrose 5 %-0.45 % NaCl 1,000 ml @ 100 mls/hr IV 0900 [facility] Rx#:[id number] Oral 0 Output: Output, Karimi 470 250 0 Other: Voiding Method Diaper Indwelling Catheter Progress Note: Exam - Physical Exam Deviation from normal: sleeping HEENT: PERRLA Neck: no nodes, no JVD Cardiovascular: RRR, no significant murmur Focused Respiratory Location: rhonchi: Right, Left Gastrointestinal: soft, non-tender Musculoskeletal: no edema Deviation from normal: decreased strength R arm and R leg. Aphasic Lymphatic: no nodes Deviation from normal: sleeping Skin: no rash Progress Note: Data - Labs Result Diagrams: 09/07/17 16:16 09/07/17 16:16 Progress Note: A/P - Problems (1) Acute CVA (cerebrovascular accident) Current Visit: Yes Status: Acute Code(s): I63.9 - CEREBRAL INFARCTION, UNSPECIFIED (2) Non-ischemic cardiomyopathy Current Visit: No Status: Acute Code(s): I42.9 - CARDIOMYOPATHY, UNSPECIFIED (3) Acute on chronic heart failure Current Visit: No Status: Chronic Code(s): I50.9 - HEART FAILURE, UNSPECIFIED (4) CKD (chronic kidney disease) stage 3, GFR 30-59 ml/min Current Visit: No Status: Chronic (5) Cocaine abuse Current Visit: No Status: Chronic Code(s): F14.10 - COCAINE ABUSE, UNCOMPLICATED (6) Hypertension Current Visit: No Status: Chronic Code(s): I10 - ESSENTIAL (PRIMARY) HYPERTENSION - Plan Plan: The main issue at this point is his agitation. He behaves as if he is withdrawing from alcohol or some other substance. His nutrition may need to be addressed by placement of DHT and initiation of TF. Stroke mgmt per neurology. CHF mgmt per cardiology.
[2017-09-08] MEDS: Docusate 100 MG CAP PO SCH ×2 (11:07→21:07)
[2017-09-08] MEDS: Carvedilol 6.25 MG TAB PO SCH ×2 (11:07→21:07)
[2017-09-08] MEDS: Lisinopril 5 MG TAB PO SCH (11:07)
[2017-09-08] MEDS: Famotidine 20 MG TAB PO SCH ×2 (11:07→21:07)
[2017-09-08] MEDS: Aspirin 300 MG Suppository PR SCH (11:08)
--- NOTE | 2017-09-08 11:33 | RAD ---
SUPINE AP ABDOMINAL RADIOGRAPH: Date: 09-08-17 History: Evaluate Dobbhoff feeding tube placement. FINDINGS: Dobbhoff feeding tube is noted in place with the tip overlying the left upper quadrant in the expecte d location of the gastric fundus. There is partial visualization of the cardiac AICD lead. The cardia c silhouette is markedly enlarged. There is an oval shaped area of increased density overlying the ri ght upper quadrant. This could be related to overlying surgical clips in this region or possibly repr esent a calcification which overlies region of the right renal hilum. This is difficult to further lo calization. Vascular calcification in the abdominal aorta and involving the iliac arteries. Temperatu re probe overlies the midline of the pelvis. Bowel gas pattern is nonspecific. IMPRESSION: 1. Dobbhoff feeding tube noted in place with tip overlying the expected location of the gastric fundu s. 2. Marked cardiomegaly. 3. Nonspecific bowel gas pattern. 4. Radiopaque density overlying the right upper quadrant. I am not sure if this is related to overlyi ng surgical clips or if this represents a calcification overlying the right upper quadrant which is d ifficult to further localize. POS: KIMBERLY
[2017-09-08] MEDS: Multivitamins, Adult 10 ML, Folic Acid 1 MG, Thiamine HCl 100 MG in Dextrose 5 %-0.45 %... IV SCH (12:06)
--- NOTE | 2017-09-08 15:44 | PDOC.PN ---
- Subjective Encounter Start Date: 09/08/17 Encounter Start Time: 14:00 Patient remains non verbal, completely disoriented, No Family at bedside now. Discussed with Nurse, pt remains DNR, family making a decision about code status tomoorrow. - Objective Resuscitation Status: Resuscitation Status FULL:Full Resuscitation MAR Reviewed: Yes Vital Signs & Weight: Vital Signs (12 hours) Temp Pulse Resp BP BP Pulse Ox 09/08/17 15:00 97.7 F 09/08/17 12:00 98 F 09/08/17 11:59 97.2 F L 91 30 H 141/106 H 94 L 09/08/17 11:07 157/124 H 09/08/17 10:00 97.8 F 09/08/17 09:00 97.8 F 09/08/17 08:00 97.8 F 99 32 H 94 L 09/08/17 07:00 97.2 F L 09/08/17 04:00 98.2 F Weight Admit Weight 190 lb 14.725 oz Weight 181 lb 14.102 oz Most Recent Monitor Data Heart Rate from ECG 68 NIBP 104/84 NIBP BP-Mean 89 Respiration from ECG 35 SpO2 100 I&O: 09/07/17 09/08/17 09/09/17 06:59 06:59 06:59 Intake Total 673 2486 295 Output Total 1245 720 320 Balance -572 1766 -25 Result Diagrams: 09/07/17 16:16 09/07/17 16:16 Radiology Reviewed by me: Yes Phys Exam - Physical Examination HEENT: PERRLA, moist MMs Neck: no nodes, no JVD Respiratory: no wheezing, no rales Cardiovascular: RRR, no significant murmur Gastrointestinal: soft, non-tender Musculoskeletal: no edema, pulses present Neurological: non-focal Lymphatic: no nodes Dx/Plan (1) Acute CVA (cerebrovascular accident) Code(s): I63.9 - CEREBRAL INFARCTION, UNSPECIFIED Status: Acute Comment: Right CVA Clinically significant Motor Deficits, neurololgy Signed off. Pt on AICD hence no MRI. pt on Rectal aspirin. (2) Acute bronchitis Code(s): J20.9 - ACUTE BRONCHITIS, UNSPECIFIED Status: Acute Comment: Nebs PRn. (3) Acute respiratory failure with hypoxia Code(s): J96.01 - ACUTE RESPIRATORY FAILURE WITH HYPOXIA Status: Acute Comment: Likely from CHFexacerbatipon, pt on IV lasix, ACEI, Spirinolactone. (4) CHF exacerbation Code(s): I50.9 - HEART FAILURE, UNSPECIFIED Status: Acute Qualifiers: Heart failure type: systolic Qualified Code(s): I50.23 - Acute on chronic systolic (congestive) heart failure Comment: Severe CHF with low EF, likely from Cocain use non ischemic cardiomyopathy, on ACEI, BB,. (5) Non-ischemic cardiomyopathy Code(s): I42.9 - CARDIOMYOPATHY, UNSPECIFIED Status: Acute Comment: Plan as Above. Plan to discuss with Family about Code status and hospice care - Plan cont current plan of care, plan discussed w/ family, PT/OT, social services designee, speech therapy, respiratory therapy, incentive spirometry, DVT proph w/lovenox, DVT proph w/SCDs * . - Discharge Day Encounter end time: 14:35 Review of Systems - Review of Systems Other: Unable to get ROS. - Medications/Allergies Allergies/Adverse Reactions: Allergies Allergy/AdvReac Type Severity Reaction Status Date / Time No Known Allergies Allergy Verified 08/08/17 22:22 Medications: Current Medications Acetaminophen (Tylenol) 650 mg PO Q4H PRN PRN Reason: Headache/Fever or Pain Amiodarone HCl (Cordarone) 200 mg PO DAILY [facility] Aspirin (Aspirin) 325 mg [place] QAM [facility] Last Admin: 09/08/17 11:08 Dose: 325 mg Atorvastatin Calcium (Lipitor) 5 mg PO HS [facility] Last Admin: 09/07/17 20:41 Dose: Not Given Carvedilol (Coreg) 6.25 mg PO BID [facility] Last Admin: 09/08/17 11:07 Dose: 6.25 mg Docusate Sodium (Colace) 100 mg PO BID [facility] Last Admin: 09/08/17 11:07 Dose: 100 mg Famotidine (Pepcid) 20 mg PO BID [facility] Last Admin: 09/08/17 11:07 Dose: 20 mg Guaifenesin/Dextromethorphan (Robitussin Dm) 15 ml PO Q4H PRN PRN Reason: Cough Haloperidol Lactate (Haldol) 5 mg IM Q4H PRN PRN Reason: Agitation Last Admin: 09/08/17 11:07 Dose: 5 mg Hydralazine HCl (Apresoline) 10 mg SLOW IVP Q3H PRN PRN Reason: SBP>170 OR DBP>110 Last Admin: 09/07/17 02:07 Dose: 10 mg Multivitamins 10 ml/ Folic Acid 1 mg/ Thiamine HCl 100 mg / Dextrose/Sodium Chloride 1,011.2 mls @ 100 mls/hr IV 0900 [facility] Last Admin: 09/08/17 12:06 Dose: 1,011.2 mls Dextrose/Sodium Chloride (D5 1/2 Ns) 1,000 mls @ 100 mls/hr IV .Q10H [facility] Last Admin: 09/08/17 12:22 Dose: Not Given Lisinopril (Zestril) 5 mg PO DAILY [facility] Last Admin: 09/08/17 11:07 Dose: 5 mg Lorazepam (Ativan) 2 mg SLOW IVP Q4H PRN PRN Reason: RESTLESSNESS/ANXIETY Last Admin: 09/08/17 11:18 Dose: 2 mg Ondansetron HCl (Zofran) 4 mg IVP Q6H PRN PRN Reason: Nausea/Vomiting Sodium Chloride (Flush - Normal Saline) 10 ml IVF Q12HR [facility] Last Admin: 09/08/17 11:08 Dose: 10 ml Sodium Chloride (Flush - Normal Saline) 10 ml IVF PRN PRN PRN Reason: Saline Flush
--- NOTE | 2017-09-08 15:50 | PDOC.PN ---
- Subjective Encounter Start Date: 09/07/17 Encounter Start Time: 13:00 -: non-verbal Discussed with Patients brother and Sister at Bedside, Explained poor prognosis due to poor Fucntioning heart and Stroke. Discussed about Code status, Family said are waiting on a Brother who has MPOA. - Objective Resuscitation Status: Resuscitation Status FULL:Full Resuscitation MAR Reviewed: Yes Vital Signs & Weight: Vital Signs (12 hours) Temp Pulse Resp BP BP Pulse Ox 09/08/17 15:00 97.7 F 09/08/17 12:00 98 F 09/08/17 11:59 97.2 F L 91 30 H 141/106 H 94 L 09/08/17 11:07 157/124 H 09/08/17 10:00 97.8 F 09/08/17 09:00 97.8 F 09/08/17 08:00 97.8 F 99 32 H 94 L 09/08/17 07:00 97.2 F L 09/08/17 04:00 98.2 F Weight Admit Weight 190 lb 14.725 oz Weight 181 lb 14.102 oz Most Recent Monitor Data Heart Rate from ECG 68 NIBP 104/84 NIBP BP-Mean 89 Respiration from ECG 35 SpO2 100 I&O: 09/07/17 09/08/17 09/09/17 06:59 06:59 06:59 Intake Total 673 2486 295 Output Total 1245 720 320 Balance -572 1766 -25 Result Diagrams: 09/07/17 16:16 09/07/17 16:16 Radiology Reviewed by me: Yes EKG Reviewed by me: Yes Phys Exam - Physical Examination HEENT: moist MMs Neck: no nodes, no JVD Respiratory: no wheezing, no rales Cardiovascular: RRR, no significant murmur Gastrointestinal: soft, non-tender Musculoskeletal: no edema, pulses present Focal Right sided Deficits upper and lower Extremity Lymphatic: no nodes Skin: no rash, normal turgor Dx/Plan (1) Acute CVA (cerebrovascular accident) Code(s): I63.9 - CEREBRAL INFARCTION, UNSPECIFIED Status: Acute Comment: Right CVA Clinically significant Motor Deficits, neurololgy Signed off. Pt on AICD hence no MRI. pt on Rectal aspirin. (2) Acute bronchitis Code(s): J20.9 - ACUTE BRONCHITIS, UNSPECIFIED Status: Acute Comment: Nebs PRn. (3) Acute respiratory failure with hypoxia Code(s): J96.01 - ACUTE RESPIRATORY FAILURE WITH HYPOXIA Status: Acute Comment: Likely from CHFexacerbatipon, pt on IV lasix, ACEI, Spirinolactone. (4) CHF exacerbation Code(s): I50.9 - HEART FAILURE, UNSPECIFIED Status: Acute Qualifiers: Heart failure type: systolic Qualified Code(s): I50.23 - Acute on chronic systolic (congestive) heart failure Comment: Severe CHF with low EF, likely from Cocain use non ischemic cardiomyopathy, on ACEI, BB,. (5) Non-ischemic cardiomyopathy Code(s): I42.9 - CARDIOMYOPATHY, UNSPECIFIED Status: Acute Comment: Plan as Above. Family still waiitng on a family memeber to discuss code status. They feel pt was DNR last time but are not sure. - Plan cont current plan of care, plan discussed w/ family, continue antibiotics, PT/OT , administrator social welfare, respiratory therapy, incentive spirometry, DVT proph w/ lovenox * . - Discharge Day Encounter end time: 13:35 Review of Systems - Review of Systems Other: Unable to obtain. - Medications/Allergies Allergies/Adverse Reactions: Allergies Allergy/AdvReac Type Severity Reaction Status Date / Time No Known Allergies Allergy Verified 08/08/17 22:22 Medications: Current Medications Acetaminophen (Tylenol) 650 mg PO Q4H PRN PRN Reason: Headache/Fever or Pain Amiodarone HCl (Cordarone) 200 mg PO DAILY [facility] Aspirin (Aspirin) 325 mg [place] QAM [facility] Last Admin: 09/08/17 11:08 Dose: 325 mg Atorvastatin Calcium (Lipitor) 5 mg PO HS [facility] Last Admin: 09/07/17 20:41 Dose: Not Given Carvedilol (Coreg) 6.25 mg PO BID [facility] Last Admin: 09/08/17 11:07 Dose: 6.25 mg Docusate Sodium (Colace) 100 mg PO BID [facility] Last Admin: 09/08/17 11:07 Dose: 100 mg Famotidine (Pepcid) 20 mg PO BID [facility] Last Admin: 09/08/17 11:07 Dose: 20 mg Guaifenesin/Dextromethorphan (Robitussin Dm) 15 ml PO Q4H PRN PRN Reason: Cough Haloperidol Lactate (Haldol) 5 mg IM Q4H PRN PRN Reason: Agitation Last Admin: 09/08/17 11:07 Dose: 5 mg Hydralazine HCl (Apresoline) 10 mg SLOW IVP Q3H PRN PRN Reason: SBP>170 OR DBP>110 Last Admin: 09/07/17 02:07 Dose: 10 mg Multivitamins 10 ml/ Folic Acid 1 mg/ Thiamine HCl 100 mg / Dextrose/Sodium Chloride 1,011.2 mls @ 100 mls/hr IV 0900 [facility] Last Admin: 09/08/17 12:06 Dose: 1,011.2 mls Dextrose/Sodium Chloride (D5 1/2 Ns) 1,000 mls @ 100 mls/hr IV .Q10H [facility] Last Admin: 09/08/17 12:22 Dose: Not Given Lisinopril (Zestril) 5 mg PO DAILY [facility] Last Admin: 09/08/17 11:07 Dose: 5 mg Lorazepam (Ativan) 2 mg SLOW IVP Q4H PRN PRN Reason: RESTLESSNESS/ANXIETY Last Admin: 09/08/17 11:18 Dose: 2 mg Ondansetron HCl (Zofran) 4 mg IVP Q6H PRN PRN Reason: Nausea/Vomiting Sodium Chloride (Flush - Normal Saline) 10 ml IVF Q12HR [facility] Last Admin: 09/08/17 11:08 Dose: 10 ml Sodium Chloride (Flush - Normal Saline) 10 ml IVF PRN PRN PRN Reason: Saline Flush
[2017-09-08] MEDS: Atorvastatin Calcium 10 MG TAB PO SCH (21:07)
[2017-09-09] MEDS: Lorazepam 2 MG/ML VIAL SLOW IVP PRN (01:04)
[2017-09-09 05:28] LABS: #Lymphocytes 1.1 thou/uL (1.20-3.40); #Monocytes 1.8 thou/uL (0.11-0.59); #Neutrophils 9.7 thou/uL (1.40-6.50); %Eosinophils 0.1 % (0.0-10.0); %Lymphocytes 8.9 % (21.0-51.0); Hemoglobin 14.3 g/dL (14.0-18.0); Mean Corpuscular HGB CONC 30.3 g/dL (32.0-36.0); Mean Corpuscular Hemoglobin 26.9 pg (27.0-31.0); Mean Corpuscular Volume 88.9 fl (80.0-94.0); Mean Platelet Volume 8.5 fL (7.4-10.4); Platelet Count 184 thou/uL (130-400); Red Blood Cell (RBC) Count 5.32 mill/uL (4.70-6.10); White Blood Cell (WBC) Count 12.6 thou/uL (4.8-10.8)
[2017-09-09 05:37] LABS: Anion Gap 14 mmol/L (10-20); BUN (Urea Nitrogen) 52 mg/dL (8.4-25.7); Calc. Creatinine Clearance 51 mL/min (70-130); Calcium 8.8 mg/dL (7.8-10.44); Carbon Dioxide 22 mmol/L (22-29); Chloride 106 mmol/L (98-107); Estimated GFR-MDRD 43; Glucose 83 mg/dL (70-105); Potassium 5.5 mmol/L (3.5-5.1); Sodium 136 mmol/L (136-145)
[2017-09-09] MEDS ORDERED: Midazolam HCl 2 mg/2 ml Vial ONE (06:52)
[2017-09-09] MEDS ORDERED: Sedation Protocol FS ONE (07:04)
[2017-09-09] MEDS ORDERED: Propofol 1,000 MG/100 ML VIAL IV ONE (07:05)
[2017-09-09] MEDS ORDERED: Morphine 2 MG/ML SYRINGE SLOW IVP PRN (07:07)
[2017-09-09] MEDS ORDERED: fentaNYL Citrate/PF 2,000 MCG in Sodium Chloride 0.9% 60 ML IV SCH (07:07)
[2017-09-09] MEDS ORDERED: Lorazepam 2 MG/ML VIAL SLOW IVP PRN (07:07)
[2017-09-09] MEDS ORDERED: Fentanyl BOLUS 250 ML IVPB PRN (07:07)
[2017-09-09] MEDS: Propofol 1,000 MG/100 ML VIAL IV PRN (07:20)
[2017-09-09 07:48] LABS: CO2 Tension 52.3 mmHg (35.0-45.0); pH, Arterial 7.25 (7.35-7.45)
[2017-09-09 07:49] LABS: Actual Bicarbonate (HCO3a) 22.5 mEq/L (22-26); Base Excess (BEa) -5.1 mEq/L (0 (+/-) 2.5); Calcium, Ionized 1.2 mmol/L (1.12-1.30); Hemoglobin (Hb) 13.3 g/dL (14.0-18.0)
[2017-09-09 07:50] LABS: ALV-art Gradient 201.125 (0-20); Analyzer IN Cardio ER; Puncture Site RRA
[2017-09-09] MEDS ORDERED: Sodium Chloride 0.9% 1,000 ML IV SCH (08:30)
--- NOTE | 2017-09-09 08:47 | PRG ---
DATE OF SERVICE: 09/09/2017 This is 45 minutes critical care time. I was notified about 6:45 this morning that the patient was experiencing apneic episodes and had a re spiratory acidosis on ABG. The respiratory therapist thought the patient needed to be intubated. Wi thin 10 minutes I arrived. The patient was in respiratory extremis with low O2 sats. The patient re ceived bag mask ventilation until his O2 sats improved to the upper 90s. I then intubated him using a GlideScope and 8.0 endotracheal tube. The tube was placed orally and position was confirmed by end tidal CO2 and auscultation. X-ray also confirmed proper ET tube placement. The patient was then placed on mechanical ventilation. PHYSICAL EXAMINATION: VITAL SIGNS: Currently temperature 98.0, pulse 75, blood pressure 124/86, 24-hour intake 3308, outpu t 725, weight 190 pounds. NEUROLOGIC: He is obtunded. He does move his left side, but is hemiparetic on the right. HEENT: Pupils are sluggishly reactive. Sclerae icteric. Oropharynx with copious secretions. NECK: No JVD. LUNGS: Coarse breath sounds. CARDIOVASCULAR: S1, S2 regular, without murmur. ABDOMEN: Soft, nontender, nondistended. EXTREMITIES: No clubbing, cyanosis, or edema. LABORATORY DATA: Sodium 136, potassium 5.5, chloride 106, CO2 22, BUN 52, creatinine 1.9, glucose 83 . White blood cell count 12.6, hematocrit 47.3, platelet count 184. INR 1.2. Chest x-ray showed ca rdiomegaly without any acute infiltrate. ASSESSMENT: 1. Acute respiratory failure. This is secondary to his inability to clear secretions given stroke a nd the development of aphasia and right-sided hemiparesis. 2. Large cerebrovascular accident without evidence of recovery. 3. Aspiration pneumonia. 4. Hyperkalemia and increased renal insufficiency. I think the patient is probably dry. It think t he SHLOMO inhibitor may be contributing to his hyperkalemia. PLAN: 1. The patient was intubated. See note above. Mechanical ventilation settings have been adjusted. 2. Start Zosyn empirically for aspiration pneumonia. 3. One liter bolus IV fluids. 4. Continue tube feeds. 5. Hold the SHLOMO inhibitor for the current time. 6. I will try to update the family.
[2017-09-09] MEDS: Scopolamine 1.5 mg/72 hour Patch TD SCH (09:26)
[2017-09-09] MEDS ORDERED: Morphine 4 MG/ML Carpuject SLOW IVP PRN (09:31)
[2017-09-09] MEDS ORDERED: DC Sedation Protocol FS ONE (09:31)
--- NOTE | 2017-09-09 09:40 | RAD ---
PORTABLE SUPINE FRONTAL CHEST RADIOGRAPH: 09/09/2017 HISTORY: Intubated patient. COMPARISON: 09/06/2017 FINDINGS: Endotracheal tube in place, tip overlying the region of the clavicles. Single lead AICD present, ins erted via left subclavian approach. There is marked enlargement of the cardiac silhouette, which may signify cardiomegaly and/or pericardial effusion. There is pulmonary vascular congestion. There is hazy increased density in the left base, which may signify soft tissue attenuation, air space diseas e, or pleural fluid. Dobhoff tube extends into upper abdomen, incompletely imaged. IMPRESSION: 1. Marked enlargement of the cardiac silhouette, as above. 2. Endotracheal tube in place. 3. Hazy density in left base, not well characterized on this exam. POS: KIMBERLY
--- NOTE | 2017-09-09 09:52 | PRG ---
DATE OF SERVICE: 09/09/2017 SUBJECTIVE: I met with the patient's daughter and son this morning. This was about an hour after th e patient has been intubated for respiratory failure. They had been meeting either by phone or in rson with the palliative care team over the last 48 hours. They have been contemplating comfort care measures understanding the severity of the patient's stroke. The daughter who is the primary caregiver and decision maker told me unequivocally that she wanted th e patient to be DNR. She wanted the breathing tube removed. She fully understands that the patient will likely from inability to control secretions. I did offer the alternative of continuing s upport and perform a tracheostomy and PEG tube placement, but the daughter said that her father would not want that. Based on her direction, I have put a DNR order on his chart. The nursing staff witnessed this intera ction. ET tube will be withdrawn. The patient will be kept comfortable with morphine as needed.
[2017-09-09] MEDS: Carvedilol 6.25 MG TAB PO SCH ×2 (09:57→22:02)
[2017-09-09] MEDS: Docusate 100 MG CAP PO SCH ×2 (09:57→22:02)
[2017-09-09] MEDS: Amiodarone 200 MG TAB PO SCH (09:57)
[2017-09-09] MEDS: Aspirin 300 MG Suppository PR SCH (09:58)
[2017-09-09] MEDS ORDERED: Aspirin 300 MG Suppository PR SCH (10:00)
[2017-09-09] MEDS: Piperacillin/Tazobactam 3.375 GM in Sodium Chloride 0.9% 100 ML IVPB SCH ×3 (10:02→22:02)
[2017-09-09] MEDS: Multivitamins, Adult 10 ML, Folic Acid 1 MG, Thiamine HCl 100 MG in Dextrose 5 %-0.45 %... IV SCH (10:03)
[2017-09-09] MEDS: Famotidine 40 MG/4 ML VIAL SLOW IVP SCH ×2 (10:03→22:01)
[2017-09-09] MEDS: Dextrose 5 %-0.45 % NaCl 1,000 ML IV SCH ×2 (11:00→22:00)
--- NOTE | 2017-09-09 15:10 | PDOC.PN ---
- Subjective Encounter Start Date: 09/09/17 Encounter Start Time: 13:00 -: non-verbal Intubated This morning with Worseing SOB. - Objective Resuscitation Status: Resuscitation Status DNR:Do Not Resuscitate Vital Signs & Weight: Vital Signs (12 hours) Temp Pulse Resp BP Pulse Ox 09/09/17 14:00 70 24 H 98 09/09/17 13:00 97.6 F 09/09/17 12:51 73 110/79 09/09/17 12:00 98 F 24 H 09/09/17 10:50 68 110/79 09/09/17 10:09 67 24 H 95 09/09/17 09:57 113/84 09/09/17 08:14 66 81/58 L 09/09/17 08:00 98 F 09/09/17 07:05 70 94/66 Weight Admit Weight 190 lb 14.725 oz Weight 190 lb Most Recent Monitor Data Heart Rate from ECG 73 NIBP 103/76 NIBP BP-Mean 82 Respiration from ECG 22 SpO2 98 I&O: 09/08/17 09/09/17 09/10/17 06:59 06:59 06:59 Intake Total 2486 3308 Output Total 720 725 170 Balance 1766 2583 -170 Result Diagrams: 09/09/17 04:19 09/09/17 04:19 Radiology Reviewed by me: Yes EKG Reviewed by me: Yes Phys Exam - Physical Examination Neck: no nodes, supple JVD noted. Respiratory: wheezing present Rales noted. Cardiovascular: RRR, no significant murmur Gastrointestinal: soft, non-tender Musculoskeletal: edema present Dx/Plan (1) Acute CVA (cerebrovascular accident) Code(s): I63.9 - CEREBRAL INFARCTION, UNSPECIFIED Status: Acute Comment: Right CVA Clinically significant Motor Deficits, neurololgy Signed off. Pt on AICD hence no MRI. pt on Rectal aspirin. (2) Acute bronchitis Code(s): J20.9 - ACUTE BRONCHITIS, UNSPECIFIED Status: Acute Comment: Nebs PRn. (3) Acute respiratory failure with hypoxia Code(s): J96.01 - ACUTE RESPIRATORY FAILURE WITH HYPOXIA Status: Acute Comment: Likely from CHFexacerbatipon, pt on IV lasix, ACEI, Spirinolactone. (4) CHF exacerbation Code(s): I50.9 - HEART FAILURE, UNSPECIFIED Status: Acute Qualifiers: Heart failure type: systolic Qualified Code(s): I50.23 - Acute on chronic systolic (congestive) heart failure Comment: Severe CHF with low EF, likely from Cocain use non ischemic cardiomyopathy, on ACEI, BB,. (5) Non-ischemic cardiomyopathy Code(s): I42.9 - CARDIOMYOPATHY, UNSPECIFIED Status: Acute Comment: Plan as Above. Family still waiitng on a family memeber to discuss code status. They feel pt was DNR last time but are not sure. (6) Acute respiratory failure with hypoxia Code(s): J96.01 - ACUTE RESPIRATORY FAILURE WITH HYPOXIA Status: Acute Comment: PT became hypoxic and ABG showed hypercarbia and hypoxia so was intubated , Discussed with Family about COde status, pt is DNR now, and like to extubate in 24 hrs if no resonable recovery noted. - Plan cont current plan of care, plan discussed w/ family, respiratory therapy, DVT proph w/lovenox * . - Discharge Day Encounter end time: 13:35 Review of Systems - Review of Systems Other: Intubated and Sedated. - Medications/Allergies Allergies/Adverse Reactions: Allergies Allergy/AdvReac Type Severity Reaction Status Date / Time No Known Allergies Allergy Verified 08/08/17 22:22 Medications: Current Medications Acetaminophen (Tylenol) 650 mg PO Q4H PRN PRN Reason: Headache/Fever or Pain Albuterol/Ipratropium (Duoneb) 3 ml NEB [id number] [facility] Last Admin: 09/09/17 14:00 Dose: 3 ml Amiodarone HCl (Cordarone) 200 mg PO DAILY [facility] Last Admin: 09/09/17 09:57 Dose: 200 mg Aspirin (Aspirin) 300 mg [place] QAM [facility] Atorvastatin Calcium (Lipitor) 5 mg PO HS [facility] Last Admin: 09/08/17 21:07 Dose: 5 mg Carvedilol (Coreg) 6.25 mg PO BID [facility] Last Admin: 09/09/17 09:57 Dose: 6.25 mg Docusate Sodium (Colace) 100 mg PO BID [facility] Last Admin: 09/09/17 09:57 Dose: 100 mg Famotidine (Pepcid) 20 mg SLOW IVP BID [facility] Last Admin: 09/09/17 10:03 Dose: 20 mg Guaifenesin/Dextromethorphan (Robitussin Dm) 15 ml PO Q4H PRN PRN Reason: Cough Hydralazine HCl (Apresoline) 10 mg SLOW IVP Q3H PRN PRN Reason: SBP>170 OR DBP>110 Last Admin: 09/07/17 02:07 Dose: 10 mg Multivitamins 10 ml/ Folic Acid 1 mg/ Thiamine HCl 100 mg / Dextrose/Sodium Chloride 1,011.2 mls @ 100 mls/hr IV 0900 [facility] Last Admin: 09/09/17 10:03 Dose: 1,011.2 mls Dextrose/Sodium Chloride (D5 1/2 Ns) 1,000 mls @ 100 mls/hr IV .Q10H [facility] Last Admin: 09/09/17 11:00 Dose: Not Given Piperacillin Sod/Tazobactam (Sod 3.375 gm/ Sodium Chloride) 100 mls @ 200 mls/ hr IVPB 0300,0900,1600,2100 [facility] Last Admin: 09/09/17 10:02 Dose: 100 mls Morphine Sulfate (Morphine) 4 mg SLOW IVP Q15MIN PRN PRN Reason: Dyspnea Ondansetron HCl (Zofran) 4 mg IVP Q6H PRN PRN Reason: Nausea/Vomiting Propofol (Diprivan) 1,000 mg IV INF PRN; Protocol PRN Reason: TO ACHIEVE MINER SCORE 2-3 Stop: 10/09/17 07:07 Scopolamine (Transderm Scop) 1.5 mg TD Q3D [facility] Last Admin: 09/09/17 09:26 Dose: 1.5 mg Sodium Chloride (Flush - Normal Saline) 10 ml IVF Q12HR [facility] Last Admin: 09/09/17 10:14 Dose: 10 ml Sodium Chloride (Flush - Normal Saline) 10 ml IVF PRN PRN PRN Reason: Saline Flush
[2017-09-09] MEDS: Atorvastatin Calcium 10 MG TAB PO SCH (22:01)
[2017-09-10] MEDS: Piperacillin/Tazobactam 3.375 GM in Sodium Chloride 0.9% 100 ML IVPB SCH ×4 (02:34→21:30)
[2017-09-10] MEDS: Propofol 1,000 MG/100 ML VIAL IV PRN ×2 (02:34→17:36)
[2017-09-10 05:48] LABS: #Lymphocytes 0.7 thou/uL (1.20-3.40); #Monocytes 1.2 thou/uL (0.11-0.59); #Neutrophils 10.1 thou/uL (1.40-6.50); %Basophils 0.1 % (0.0-1.0); %Eosinophils 0.1 % (0.0-10.0); %Lymphocytes 5.6 % (21.0-51.0); %Monocytes 10.2 % (0.0-10.0); Hemoglobin 12.6 g/dL (14.0-18.0); Mean Corpuscular HGB CONC 31.3 g/dL (32.0-36.0); Mean Corpuscular Hemoglobin 27.5 pg (27.0-31.0); Mean Corpuscular Volume 87.9 fl (80.0-94.0); Mean Platelet Volume 7.9 fL (7.4-10.4); Platelet Count 145 thou/uL (130-400); RBC Distribution Width 17.1 % (11.5-14.5); Red Blood Cell (RBC) Count 4.59 mill/uL (4.70-6.10); White Blood Cell (WBC) Count 12.1 thou/uL (4.8-10.8)
[2017-09-10] MEDS: Dextrose 5 %-0.45 % NaCl 1,000 ML IV SCH ×2 (05:52→21:28)
[2017-09-10 05:54] LABS: Anion Gap 10 mmol/L (10-20); BUN (Urea Nitrogen) 43 mg/dL (8.4-25.7); Calc. Creatinine Clearance 0 mL/min (70-130); Calcium 7.7 mg/dL (7.8-10.44); Carbon Dioxide 22 mmol/L (22-29); Chloride 112 mmol/L (98-107); Estimated GFR-MDRD 54; Glucose 111 mg/dL (70-105); Potassium 4.5 mmol/L (3.5-5.1); Sodium 139 mmol/L (136-145)
--- NOTE | 2017-09-10 07:59 | PRG ---
DATE OF SERVICE: 09/10/2017 Thirty-five minutes critical care time. The patient remains intubated on mechanical ventilation. I had written orders to extubate yesterday as this was the family wishes. Apparently there was a blow up between the nursing staff and family. The decision was made by the family to continue endotracheal intubation at least 24 hours and they a re currently in conversations with palliative care. The patient remains DNR. PHYSICAL EXAMINATION: GENERAL: Temperature is 98.8, blood pressure 102/70, pulse 75, O2 sat 97%. Total intake for 24 hour s 4161 in, output 1580. HEENT: Unremarkable. NECK: Without adenopathy, JVD, or bruit. LUNGS: Clear anteriorly. CARDIOVASCULAR: S1, S2 regular, without murmur. ABDOMEN: Soft and nontender. EXTREMITIES: No edema. LABORATORY DATA: Sodium 139, potassium 4.5, chloride 112, CO2 22, BUN 43, creatinine 1.6, glucose 11 1. White blood cell count 12.1, hematocrit 40.4, platelet count 145. ASSESSMENT: 1. Cerebrovascular accident with dysphagia, aphasia, and right-sided hemiparesis. 2. Acute respiratory failure secondary to inability to handle secretions. 3. Cocaine abuse. 4. Aspiration pneumonia. 5. Improved hyperkalemia and renal insufficiency. RECOMMENDATIONS: 1. Continue conversations with Palliative Care and family regarding future care. 2. Continue empiric coverage for aspiration pneumonia. 3. Limit sedation as much as possible. 4. Adjust mechanical ventilation settings if need be.
[2017-09-10 08:17] LABS: Actual Bicarbonate (HCO3a) 22.6 mEq/L (22-26); Base Excess (BEa) -0.7 mEq/L (0 (+/-) 2.5); CO2 Tension 32.8 mmHg (35.0-45.0); Hematocrit-ABG 38.3 % (42.0-52.0); pH, Arterial 7.46 (7.35-7.45)
[2017-09-10 08:18] LABS: Puncture Site RRA
[2017-09-10] MEDS: Carvedilol 6.25 MG TAB PO SCH ×2 (08:42→21:39)
[2017-09-10] MEDS: Aspirin 300 MG Suppository PR SCH (08:43)
[2017-09-10] MEDS: Amiodarone 200 MG TAB PO SCH (08:43)
[2017-09-10] MEDS: Famotidine 40 MG/4 ML VIAL SLOW IVP SCH ×2 (08:51→21:29)
[2017-09-10] MEDS: Docusate 100 MG CAP PO SCH ×2 (08:51→21:29)
--- NOTE | 2017-09-10 09:18 | PRG ---
DATE OF SERVICE: 09/09/2017 Mr. Littles status is unchanged. He continues to be intubated and sedated. PHYSICAL EXAMINATION: VITAL SIGNS: Blood pressure 98/70, pulse 80, respirations 20. LUNGS: Clear to auscultation. CARDIAC: Regular rate and rhythm. ABDOMEN: Soft, nontender, nondistended. EXTREMITIES: No edema. IMPRESSION: 1. Nonischemic cardiomyopathy. 2. Cerebrovascular accident. 3. Respiratory failure. RECOMMENDATIONS: Unfortunately, Mr. Beckham prognosis is poor. Mr. Littles prognosis has been poor in t he past given his history of illicit drug use and noncompliance. Unfortunately, now he has suffered a massive cerebrovascular accident. We will continue supportive care.
--- NOTE | 2017-09-10 11:15 | CON ---
DATE OF SERVICE: 09/10/2017 SUBJECTIVE: Mr. Beckham's status is unchanged. He continues to be intubated. There was a question on whether they were going to withdraw support yesterday. Family has decided to withhold support likely today or tomorrow. PHYSICAL EXAMINATION: VITAL SIGNS: 95/59, pulse 69, respiratory rate 20. LUNGS: Clear to auscultation. HEART: Regular rate and rhythm. ABDOMEN: Soft, nontender, nondistended. EXTREMITIES: No edema. IMPRESSION: 1. Nonischemic cardiomyopathy. 2. Illicit drug use. 3. Cerebrovascular accident. 4. Respiratory failure. RECOMMENDATIONS: At this point, I have no further cardiovascular recommendations. It appears family is going to withdraw support today or tomorrow. If his status changes, please reconsult. Otherwise , I have no recommendations.
[2017-09-10] MEDS: Multivitamins, Adult 10 ML, Folic Acid 1 MG, Thiamine HCl 100 MG in Dextrose 5 %-0.45 %... IV SCH (11:26)
--- NOTE | 2017-09-10 14:43 | PDOC.PN ---
- Subjective Encounter Start Date: 09/10/17 Encounter Start Time: 14:00 -: non-verbal Essence is seen today, remains Intubated. and Sedated. No family meber at bedside, Family plans to talk to palliative care. - Objective Resuscitation Status: Resuscitation Status DNR:Do Not Resuscitate MAR Reviewed: Yes Vital Signs & Weight: Vital Signs (12 hours) Temp Pulse Resp BP Pulse Ox 09/10/17 13:54 69 98/69 09/10/17 13:53 70 24 H 97 09/10/17 12:00 99.4 F 24 H 09/10/17 11:44 66 94/66 09/10/17 10:10 68 92/64 09/10/17 10:00 24 H 09/10/17 09:31 73 24 H 96 09/10/17 08:42 94/64 09/10/17 08:08 75 94/64 09/10/17 08:00 99.7 F H 73 24 H 98 09/10/17 06:28 84 88/62 L 09/10/17 06:00 24 H 09/10/17 05:50 69 24 H 95 09/10/17 04:00 24 H 09/10/17 03:00 98.8 F Weight Admit Weight 190 lb 14.725 oz Weight 181 lb 14.102 oz Most Recent Monitor Data Heart Rate from ECG 68 NIBP 95/69 NIBP BP-Mean 82 Respiration from ECG 24 SpO2 97 I&O: 09/09/17 09/10/17 09/11/17 06:59 06:59 06:59 Intake Total 3308 4161 130 Output Total 725 1580 515 Balance 2583 2581 -385 Result Diagrams: 09/10/17 05:32 09/10/17 05:32 Phys Exam - Physical Examination Neck: no nodes, no JVD Respiratory: wheezing present Cardiovascular: RRR, no significant murmur Gastrointestinal: soft, non-tender Musculoskeletal: edema present Dx/Plan (1) Acute CVA (cerebrovascular accident) Code(s): I63.9 - CEREBRAL INFARCTION, UNSPECIFIED Status: Acute Comment: Right CVA Clinically significant Motor Deficits, neurololgy Signed off. Pt on AICD hence no MRI. pt on Rectal aspirin. (2) Acute bronchitis Code(s): J20.9 - ACUTE BRONCHITIS, UNSPECIFIED Status: Acute Comment: Nebs PRn. (3) Acute respiratory failure with hypoxia Code(s): J96.01 - ACUTE RESPIRATORY FAILURE WITH HYPOXIA Status: Acute Comment: Likely from CHFexacerbatipon, pt on IV lasix, ACEI, Spirinolactone. (4) CHF exacerbation Code(s): I50.9 - HEART FAILURE, UNSPECIFIED Status: Acute Qualifiers: Heart failure type: systolic Qualified Code(s): I50.23 - Acute on chronic systolic (congestive) heart failure Comment: Severe CHF with low EF, likely from Cocain use non ischemic cardiomyopathy, on ACEI, BB,. (5) Non-ischemic cardiomyopathy Code(s): I42.9 - CARDIOMYOPATHY, UNSPECIFIED Status: Acute Comment: Plan as Above. Family still waiitng on a family memeber to discuss code status. They feel pt was DNR last time but are not sure. (6) Acute respiratory failure with hypoxia Code(s): J96.01 - ACUTE RESPIRATORY FAILURE WITH HYPOXIA Status: Acute Comment: PT became hypoxic and ABG showed hypercarbia and hypoxia so was intubated , Discussed with Family about COde status, pt is DNR now, and like to extubate in 24 hrs if no resonable recovery noted. Remains intubated, follow pulmonary recommedations. - Plan * . - Discharge Day Encounter end time: 14:30 Review of Systems - Review of Systems Other: Unable to perform ROS. - Medications/Allergies Allergies/Adverse Reactions: Allergies Allergy/AdvReac Type Severity Reaction Status Date / Time No Known Allergies Allergy Verified 08/08/17 22:22 Medications: Current Medications Acetaminophen (Tylenol) 650 mg PO Q4H PRN PRN Reason: Headache/Fever or Pain Albuterol/Ipratropium (Duoneb) 3 ml NEB [id number] [facility] Last Admin: 09/10/17 13:53 Dose: 3 ml Amiodarone HCl (Cordarone) 200 mg PO DAILY [facility] Last Admin: 09/10/17 08:43 Dose: 200 mg Aspirin (Aspirin) 300 mg UT QAM [facility] Last Admin: 09/10/17 08:43 Dose: 300 mg Atorvastatin Calcium (Lipitor) 5 mg PO HS [facility] Last Admin: 09/09/17 22:01 Dose: 5 mg Carvedilol (Coreg) 6.25 mg PO BID [facility] Last Admin: 09/10/17 08:42 Dose: 6.25 mg Docusate Sodium (Colace) 100 mg PO BID [facility] Last Admin: 09/10/17 08:51 Dose: Not Given Famotidine (Pepcid) 20 mg SLOW IVP BID [facility] Last Admin: 09/10/17 08:51 Dose: 20 mg Guaifenesin/Dextromethorphan (Robitussin Dm) 15 ml PO Q4H PRN PRN Reason: Cough Hydralazine HCl (Apresoline) 10 mg SLOW IVP Q3H PRN PRN Reason: SBP>170 OR DBP>110 Last Admin: 09/07/17 02:07 Dose: 10 mg Multivitamins 10 ml/ Folic Acid 1 mg/ Thiamine HCl 100 mg / Dextrose/Sodium Chloride 1,011.2 mls @ 100 mls/hr IV 0900 [facility] Last Admin: 09/10/17 11:26 Dose: 1,011.2 mls Dextrose/Sodium Chloride (D5 1/2 Ns) 1,000 mls @ 100 mls/hr IV .Q10H [facility] Last Admin: 09/10/17 05:52 Dose: Not Given Piperacillin Sod/Tazobactam (Sod 3.375 gm/ Sodium Chloride) 100 mls @ 200 mls/ hr IVPB 0300,0900,1600,2100 [facility] Last Admin: 09/10/17 08:42 Dose: 100 mls Morphine Sulfate (Morphine) 4 mg SLOW IVP Q15MIN PRN PRN Reason: Dyspnea Ondansetron HCl (Zofran) 4 mg IVP Q6H PRN PRN Reason: Nausea/Vomiting Propofol (Diprivan) 1,000 mg IV INF PRN; Protocol PRN Reason: TO ACHIEVE MINER SCORE 2-3 Stop: 10/09/17 07:07 Last Admin: 09/10/17 02:34 Dose: 1,000 mg Scopolamine (Transderm Scop) 1.5 mg TD Q3D [facility] Last Admin: 09/09/17 09:26 Dose: 1.5 mg Sodium Chloride (Flush - Normal Saline) 10 ml IVF Q12HR [facility] Last Admin: 09/10/17 08:52 Dose: 10 ml Sodium Chloride (Flush - Normal Saline) 10 ml IVF PRN PRN PRN Reason: Saline Flush
[2017-09-10] MEDS: Atorvastatin Calcium 10 MG TAB PO SCH (21:39)
--- NOTE | 2017-09-11 00:07 | ADD-CON ---
ADDENDUM The initial report was done on 09/06/2017. That report number was [id number]. Seventy minutes of ye e was spent performing the consultation. At this time, greater than 50% was spent either with the pa tient or the patient's unit.
[2017-09-11] MEDS: Lorazepam 2 MG/ML VIAL SLOW IVP PRN ×2 (00:59→04:45)
[2017-09-11] MEDS: Dextrose 5 %-0.45 % NaCl 1,000 ML IV SCH ×2 (03:37→19:54)
[2017-09-11] MEDS: Piperacillin/Tazobactam 3.375 GM in Sodium Chloride 0.9% 100 ML IVPB SCH ×4 (03:37→20:30)
[2017-09-11] MEDS: Morphine 4 MG/ML VIAL SLOW IVP PRN ×3 (08:27→22:55)
[2017-09-11] MEDS: Ziprasidone 20 MG VIAL IM SCH ×2 (09:15→20:29)
[2017-09-11] MEDS: Valproate Sodium 250 mg/5 ml UD Cup PER TUBE SCH ×3 (09:18→20:29)
[2017-09-11] MEDS: Docusate 100 MG CAP PO SCH ×2 (09:18→20:29)
[2017-09-11] MEDS: Famotidine 40 MG/4 ML VIAL SLOW IVP SCH (09:18)
[2017-09-11] MEDS: Carvedilol 6.25 MG TAB PO SCH ×2 (09:19→20:30)
[2017-09-11] MEDS: Aspirin 300 MG Suppository PR SCH (09:19)
[2017-09-11] MEDS: Amiodarone 200 MG TAB PO SCH (09:19)
[2017-09-11] MEDS: Multivitamins, Adult 10 ML, Folic Acid 1 MG, Thiamine HCl 100 MG in Dextrose 5 %-0.45 %... IV SCH (12:12)
--- NOTE | 2017-09-11 15:40 | PRG ---
DATE OF SERVICE: 09/11/2017 Thirty-five minutes critical care time. SUBJECTIVE: The patient remains in the CCU. He was extubated yesterday at the family's urging. He is DNR. He is very agitated in bed. PHYSICAL EXAMINATION: VITAL SIGNS: On exam, temperature is 98.2, pulse 108, blood pressure 155/114. A 24-hour intake 3306 , output 1425. HEENT: Pupils react. Sclerae anicteric. Oropharynx dry. NECK: No JVD. LUNGS: Fairly clear. CARDIOVASCULAR: S1 and S2, regular. ABDOMEN: Soft and nontender. EXTREMITIES: No edema. LABORATORY DATA: No labs were done today. ASSESSMENT: 1. Severe encephalopathy. 2. 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 3. Aspiration pneumonia. 4. Cocaine abuse. PLAN: 1. Add Geodon and Depakote liquid to see if we can help him with his agitation. 2. The family is apparently adverse to using morphine. I would advise that we just treat comfort as necessary and not discuss particular medications with the family. 3. Continue palliative care input.
--- NOTE | 2017-09-11 16:23 | PDOC.PN ---
- Subjective Encounter Start Date: 09/11/17 Encounter Start Time: 14:00 -: non-verbal Pt is Extubatyed, no family at [place]. - Objective Resuscitation Status: Resuscitation Status DNR:Do Not Resuscitate MAR Reviewed: Yes Vital Signs & Weight: Vital Signs (12 hours) Temp Pulse Resp BP Pulse Ox 09/11/17 12:00 98.3 F 09/11/17 09:19 142/106 H 09/11/17 08:00 98.5 F 83 28 H 91 L Weight Admit Weight 190 lb 14.725 oz Weight 181 lb 14.102 oz Most Recent Monitor Data Heart Rate from ECG 80 NIBP 110/80 NIBP BP-Mean 90 Respiration from ECG 19 SpO2 93 I&O: 09/10/17 09/11/17 09/12/17 06:59 06:59 06:59 Intake Total 4161 3306 90 Output Total 1580 1425 345 Balance 2581 1881 -255 Result Diagrams: 09/10/17 05:32 09/10/17 05:32 Phys Exam - Physical Examination HEENT: PERRLA, moist MMs Neck: no nodes, no JVD Respiratory: no wheezing, no rales Cardiovascular: RRR, no significant murmur Gastrointestinal: soft Musculoskeletal: no edema, pulses present Defiicits noted. Lymphatic: no nodes Dx/Plan (1) Acute CVA (cerebrovascular accident) Code(s): I63.9 - CEREBRAL INFARCTION, UNSPECIFIED Status: Acute Comment: Right CVA Clinically significant Motor Deficits, neurololgy Signed off. Pt on AICD hence no MRI. pt on Rectal aspirin. (2) Acute bronchitis Code(s): J20.9 - ACUTE BRONCHITIS, UNSPECIFIED Status: Acute Comment: Nebs PRn. (3) Acute respiratory failure with hypoxia Code(s): J96.01 - ACUTE RESPIRATORY FAILURE WITH HYPOXIA Status: Acute Comment: Likely from CHFexacerbatipon, pt on IV lasix, ACEI, Spirinolactone. (4) CHF exacerbation Code(s): I50.9 - HEART FAILURE, UNSPECIFIED Status: Acute Qualifiers: Heart failure type: systolic Qualified Code(s): I50.23 - Acute on chronic systolic (congestive) heart failure Comment: Severe CHF with low EF, likely from Cocain use non ischemic cardiomyopathy, on ACEI, BB,. (5) Non-ischemic cardiomyopathy Code(s): I42.9 - CARDIOMYOPATHY, UNSPECIFIED Status: Acute Comment: Plan as Above. Family still waiitng on a family memeber to discuss code status. They feel pt was DNR last time but are not sure. (6) Acute respiratory failure with hypoxia Code(s): J96.01 - ACUTE RESPIRATORY FAILURE WITH HYPOXIA Status: Acute Comment: PT became hypoxic and ABG showed hypercarbia and hypoxia so was intubated , Discussed with Family about COde status, pt is DNR now, and like to extubate in 24 hrs if no resonable recovery noted. Remains intubated, follow pulmonary recommedations. (7) Anoxic-ischemic encephalopathy Code(s): G93.1 - ANOXIC BRAIN DAMAGE, NOT ELSEWHERE CLASSIFIED; I67.82 - CEREBRAL ISCHEMIA Status: Acute Comment: Worseing mental status and agitation, pt is restrained for preventing harm to himself , pulling Iv lines, pt will be on Geodon 20mg IM q 4hr prn, will start Seroquel 25mg po BID. - Plan cont current plan of care, PT/OT, foster care social worker, respiratory therapy, DVT proph w/lovenox * . - Discharge Day Encounter end time: 14:35 Review of Systems - Review of Systems Other: Unable to get as pt is Non verbal - Medications/Allergies Allergies/Adverse Reactions: Allergies Allergy/AdvReac Type Severity Reaction Status Date / Time No Known Allergies Allergy Verified 08/08/17 22:22 Medications: Current Medications Acetaminophen (Tylenol) 650 mg PO Q4H PRN PRN Reason: Headache/Fever or Pain Amiodarone HCl (Cordarone) 200 mg PO DAILY [facility] Last Admin: 09/11/17 09:19 Dose: 200 mg Aspirin (Aspirin) 300 mg NC QAM [facility] Last Admin: 09/11/17 09:19 Dose: 300 mg Atorvastatin Calcium (Lipitor) 5 mg PO HS [facility] Last Admin: 09/10/17 21:39 Dose: 5 mg Carvedilol (Coreg) 6.25 mg PO BID [facility] Last Admin: 09/11/17 09:19 Dose: 6.25 mg Docusate Sodium (Colace) 100 mg PO BID [facility] Last Admin: 09/11/17 09:18 Dose: Not Given Famotidine (Pepcid) 20 mg SLOW IVP BID [facility] Guaifenesin/Dextromethorphan (Robitussin Dm) 15 ml PO Q4H PRN PRN Reason: Cough Hydralazine HCl (Apresoline) 10 mg SLOW IVP Q3H PRN PRN Reason: SBP>170 OR DBP>110 Last Admin: 09/07/17 02:07 Dose: 10 mg Multivitamins 10 ml/ Folic Acid 1 mg/ Thiamine HCl 100 mg / Dextrose/Sodium Chloride 1,011.2 mls @ 100 mls/hr IV 0900 [facility] Last Admin: 09/11/17 12:12 Dose: 1,011.2 mls Dextrose/Sodium Chloride (D5 1/2 Ns) 1,000 mls @ 100 mls/hr IV .Q10H [facility] Last Admin: 09/11/17 03:37 Dose: Not Given Piperacillin Sod/Tazobactam (Sod 3.375 gm/ Sodium Chloride) 100 mls @ 200 mls/ hr IVPB 0300,0900,1600,2100 [facility] Last Admin: 09/11/17 09:18 Dose: 100 mls Morphine Sulfate (Morphine) 4 mg SLOW IVP Q15MIN PRN PRN Reason: Dyspnea Last Admin: 09/11/17 10:09 Dose: 4 mg Ondansetron HCl (Zofran) 4 mg IVP Q6H PRN PRN Reason: Nausea/Vomiting Quetiapine Fumarate (Seroquel) 25 mg PO BID [facility] Scopolamine (Transderm Scop) 1.5 mg TD Q3D [facility] Last Admin: 09/09/17 09:26 Dose: 1.5 mg Sodium Chloride (Flush - Normal Saline) 10 ml IVF Q12HR [facility] Last Admin: 09/11/17 09:42 Dose: 10 ml Sodium Chloride (Flush - Normal Saline) 10 ml IVF PRN PRN PRN Reason: Saline Flush Valproic Acid (Depakene Liquid) 250 mg PER TUBE TID [facility] Last Admin: 09/11/17 15:08 Dose: 250 mg Ziprasidone (Geodon) 20 mg IM Q12HR [facility] Last Admin: 09/11/17 09:15 Dose: 20 mg Ziprasidone (Geodon) 20 mg IM Q4H PRN PRN Reason: Agitation
[2017-09-11] MEDS: Famotidine/PF 20 mg/2ml Vial SLOW IVP SCH (20:29)
[2017-09-11] MEDS: Atorvastatin Calcium 10 MG TAB PO SCH (20:30)
[2017-09-12] MEDS: Piperacillin/Tazobactam 3.375 GM in Sodium Chloride 0.9% 100 ML IVPB SCH ×4 (02:32→21:51)
[2017-09-12] MEDS: Dextrose 5 %-0.45 % NaCl 1,000 ML IV SCH ×2 (05:22→18:03)
[2017-09-12] MEDS: Ziprasidone 20 MG VIAL IM PRN (05:29)
[2017-09-12] MEDS: Valproate Sodium 250 mg/5 ml UD Cup PER TUBE SCH ×3 (08:12→21:52)
[2017-09-12] MEDS: Ziprasidone 20 MG VIAL IM SCH ×2 (08:12→21:53)
[2017-09-12] MEDS: Scopolamine 1.5 mg/72 hour Patch TD SCH (08:46)
[2017-09-12] MEDS: Famotidine/PF 20 mg/2ml Vial SLOW IVP SCH ×2 (08:46→21:55)
[2017-09-12] MEDS: Aspirin 300 MG Suppository PR SCH (08:46)
[2017-09-12] MEDS: Amiodarone 200 MG TAB PO SCH (08:46)
[2017-09-12] MEDS: Carvedilol 6.25 MG TAB PO SCH ×2 (08:46→21:54)
[2017-09-12] MEDS: Docusate 100 MG CAP PO SCH ×2 (08:47→21:54)
--- NOTE | 2017-09-12 09:50 | PRG ---
DATE OF SERVICE: 09/12/2017 SUBJECTIVE: Mr. Beckham remains easily agitated. Surprisingly, he has had no difficulty, controlling h is airway. OBJECTIVE: VITAL SIGNS: Temperature is 98.4, pulse 70, blood pressure 90/69. 24 hour intake 3651, output 915. HEENT: Unremarkable. NECK: No JVD. CHEST: Clear. CARDIAC: S1 and S2, slightly tachycardic. ABDOMEN: Soft and nontender. EXTREMITIES: No clubbing, cyanosis, or edema. He has right-sided hemiparesis and continued aphasia. LABORATORY DATA: No labs were obtained today. ASSESSMENT: 1. Status post hemispheric stroke with right-sided hemiplegia and aphasia. 2. Aspiration pneumonitis. 3. Cocaine abuse. 4. Encephalopathy. PLAN: His agitation seems to be better on the Depakene liquid and Geodon. We are continuing Zosyn f or the aspiration pneumonia. He can be transferred out to the stroke floor. He remains a do not res uscitate patient, that is per the family's wishes. He is getting tube feeds. He received a scopolam ine patch to help keep his secretions dry.
[2017-09-12] MEDS: Multivitamins, Adult 10 ML, Folic Acid 1 MG, Thiamine HCl 100 MG in Dextrose 5 %-0.45 %... IV SCH (12:31)
[2017-09-12] MEDS: Morphine 5 MG/ML SYRINGE SLOW IVP PRN ×2 (16:15→19:33)
--- NOTE | 2017-09-12 19:54 | PDOC.PN ---
- Subjective Encounter Start Date: 09/12/17 Encounter Start Time: 19:35 Subjective: f/u for L hemispheric CVA tx with tPa with associated R hemiparesis, -: aphasia and current Dobhoff TF's. Transferred to stroke unit today. - Objective Resuscitation Status: Resuscitation Status DNR:Do Not Resuscitate MAR Reviewed: Yes Vital Signs & Weight: Vital Signs (12 hours) Temp Pulse Resp BP BP Pulse Ox 09/12/17 15:05 97.5 F L 83 20 140/99 H 80 L 09/12/17 12:00 95 09/12/17 09:59 95 09/12/17 08:46 107/77 09/12/17 08:00 97.6 F 78 22 H 95 Weight Admit Weight 190 lb 14.725 oz Weight 188 lb 14.978 oz Most Recent Monitor Data Heart Rate from ECG 78 NIBP 130/95 NIBP BP-Mean 105 Respiration from ECG 14 SpO2 79 I&O: 09/11/17 09/12/17 09/13/17 06:59 06:59 06:59 Intake Total 3306 3351 1236 Output Total 1425 915 180 Balance 1881 2436 1056 Result Diagrams: 09/10/17 05:32 09/10/17 05:32 Additional Labs: Laboratory Tests 09/06/17 09/06/17 09/07/17 12:49 18:00 16:16 WBC Creatinine 1.48 H 1.38 H Triglycerides 85 Cholesterol 179 LDL Cholesterol, Calc 133 HDL Cholesterol 29 U Cocaine Metab Screen Detected H 09/07/17 09/09/17 09/09/17 16:16 04:19 04:19 WBC 9.5 12.6 H Creatinine 1.96 H Triglycerides Cholesterol LDL Cholesterol, Calc HDL Cholesterol U Cocaine Metab Screen Radiology Reviewed by me: Yes (2D echo -EF 10-15%, severe MR) EKG Reviewed by me: Yes (Tele - SR) Phys Exam - Physical Examination opens eyes to name, aphasic Dobhoff in L nares HEENT: PERRLA, oral pharynx no lesions Neck: no JVD, supple Respiratory: no wheezing, clear to auscultation bilateral Cardiovascular: RRR Gastrointestinal: soft, non-tender, no distention, positive bowel sounds Musculoskeletal: no edema, pulses present R hemiparesis, aphasic Skin: normal turgor, cap refill <2 seconds Dx/Plan (1) Acute CVA (cerebrovascular accident) Code(s): I63.9 - CEREBRAL INFARCTION, UNSPECIFIED Status: Acute Comment: L hemispheric involvement with R hemiparesis and aphasia, continue ASA 300mg [place] daily, Lipitor 5mg HS (2) Acute respiratory failure with hypoxia Code(s): J96.01 - ACUTE RESPIRATORY FAILURE WITH HYPOXIA Status: Acute Comment: s/p intubation and now extubated, supportive measures (3) Non-ischemic cardiomyopathy Code(s): I42.9 - CARDIOMYOPATHY, UNSPECIFIED Status: Chronic Comment: EF 10- 15%, supportive, Coreg, SHLOMO-i, AICD in place (4) CKD (chronic kidney disease) stage 3, GFR 30-59 ml/min Status: Chronic (5) Cocaine abuse Code(s): F14.10 - COCAINE ABUSE, UNCOMPLICATED Status: Chronic Comment: UDS + (6) Hypertension Code(s): I10 - ESSENTIAL (PRIMARY) HYPERTENSION Status: Chronic Qualifiers: Hypertension type: essential hypertension Qualified Code(s): I10 - Essential (primary) hypertension Comment: Stable, continue BP regimen and monitor response (7) Noncompliance with medication regimen Code(s): Z91.14 - PATIENT'S OTHER NONCOMPLIANCE WITH MEDICATION REGIMEN Status : Chronic Comment: Longstanding non-compliance - Plan PT/OT, social media coordinator, speech therapy, respiratory therapy, DVT proph w/SCDs Continue general stroke protocol -: Continue ASA 300mg [place] daily -: Nutritional support with Jevity 1.2 at 25ml/h -: CM for halfway NH care options -: Stone for agitation/restlessness/combativeness * .
[2017-09-12] MEDS: Sterile Water 20 ML VIAL FS PRN (21:53)
[2017-09-12] MEDS: Atorvastatin Calcium 10 MG TAB PO SCH (21:54)
[2017-09-13] MEDS: Dextrose 5 %-0.45 % NaCl 1,000 ML IV SCH ×2 (03:32→12:12)
[2017-09-13] MEDS: Morphine 5 MG/ML SYRINGE SLOW IVP PRN ×4 (03:33→21:51)
[2017-09-13] MEDS: Piperacillin/Tazobactam 3.375 GM in Sodium Chloride 0.9% 100 ML IVPB SCH ×3 (03:33→16:30)
[2017-09-13] MEDS: Ziprasidone 20 MG VIAL IM SCH ×2 (09:22→21:39)
[2017-09-13] MEDS: Famotidine/PF 20 mg/2ml Vial SLOW IVP SCH (09:28)
[2017-09-13] MEDS: Aspirin 300 MG Suppository PR SCH (09:33)
[2017-09-13] MEDS: Carvedilol 6.25 MG TAB PO SCH (09:33)
[2017-09-13] MEDS: Docusate 100 MG CAP PO SCH (09:33)
[2017-09-13] MEDS: Amiodarone 200 MG TAB PO SCH (09:33)
[2017-09-13] MEDS: Valproate Sodium 250 mg/5 ml UD Cup PER TUBE SCH ×2 (09:33→16:30)
--- NOTE | 2017-09-13 09:33 | PRG ---
DATE OF SERVICE: 09/13/2017 SUBJECTIVE: Patient is thrashing in the bed. Does not appear to be in any respiratory distress. PHYSICAL EXAMINATION: VITAL SIGNS: Temperature 97.4, pulse 90, respirations 20s-30s, O2 sat 95% on 3 liters, blood pressur e 120/90. HEENT: Unremarkable. NECK: No JVD. LUNGS: Clear without wheezing. CARDIAC: S1 and S2 regular. ABDOMEN: Soft. EXTREMITIES: No edema. LABORATORY DATA: No labs were obtained today. ASSESSMENT: 1. Status post hemispheric stroke with right-sided hemiplegia and aphasia. 2. Aspiration pneumonitis. 3. Cocaine abuse. 4. Encephalopathy. PLAN: He is continuing Depakene and Geodon. The main issue from this point is stroke rehabilitation . Antibiotics can be stopped after 7 days of treatment. Prognosis is poor.
[2017-09-13] MEDS: Multivitamins, Adult 10 ML, Folic Acid 1 MG, Thiamine HCl 100 MG in Dextrose 5 %-0.45 %... IV SCH (11:42)
--- NOTE | 2017-09-13 18:22 | PDOC.PN ---
- Subjective Encounter Start Date: 09/13/17 Encounter Start Time: 18:20 Subjective: f/u for acute L CVA, aphasic, dysphagia and encephalopathic with Dobhoff -: TF's Jevity 1.5. R hemiparesis and lethargic after Geodon given for -: combativeness. - Objective Resuscitation Status: Resuscitation Status DNR:Do Not Resuscitate MAR Reviewed: Yes Vital Signs & Weight: Vital Signs (12 hours) Temp Pulse Resp BP BP Pulse Ox 09/13/17 15:48 97.6 F 57 L 20 100/73 09/13/17 11:30 97.2 F L 73 20 117/76 89 L 09/13/17 09:33 120/91 H 09/13/17 07:20 97.4 F L 90 32 H 95 09/13/17 07:05 97.5 F L 74 20 120/91 H 90 L Weight Admit Weight 190 lb 14.725 oz Weight 203 lb Most Recent Monitor Data Heart Rate from ECG 78 NIBP 130/95 NIBP BP-Mean 105 Respiration from ECG 14 SpO2 79 I&O: 09/12/17 09/13/17 09/14/17 06:59 06:59 06:59 Intake Total 3351 3677 1432 Output Total 915 180 100 Balance 2436 3497 1332 Result Diagrams: 09/10/17 05:32 09/10/17 05:32 EKG Reviewed by me: Yes (Tele - SR) Phys Exam - Physical Examination lethargic, does not follow commands or track with eyes Dobhoff tube in L nares HEENT: oral pharynx no lesions Neck: no JVD, supple scattered rhonchi Respiratory: no wheezing Cardiovascular: RRR Gastrointestinal: soft, non-tender, no distention, positive bowel sounds Musculoskeletal: no edema, pulses present R hemiparesis, aphasic Skin: normal turgor, cap refill <2 seconds Dx/Plan (1) Acute CVA (cerebrovascular accident) Code(s): I63.9 - CEREBRAL INFARCTION, UNSPECIFIED Status: Acute Comment: L hemispheric involvement with R hemiparesis and aphasia, continue ASA 300mg [place] daily, Lipitor 5mg HS, likely end-stage process, considering Hospice for d/c (2) Acute respiratory failure with hypoxia Code(s): J96.01 - ACUTE RESPIRATORY FAILURE WITH HYPOXIA Status: Acute Comment: s/p intubation and now extubated, supportive measures (3) Non-ischemic cardiomyopathy Code(s): I42.9 - CARDIOMYOPATHY, UNSPECIFIED Status: Chronic Comment: EF 10- 15%, supportive, Coreg, SHLOMO-i, AICD in place (4) CKD (chronic kidney disease) stage 3, GFR 30-59 ml/min Status: Chronic (5) Cocaine abuse Code(s): F14.10 - COCAINE ABUSE, UNCOMPLICATED Status: Chronic Comment: UDS + (6) Hypertension Code(s): I10 - ESSENTIAL (PRIMARY) HYPERTENSION Status: Chronic Qualifiers: Hypertension type: essential hypertension Qualified Code(s): I10 - Essential (primary) hypertension Comment: Stable, continue BP regimen and monitor response (7) Noncompliance with medication regimen Code(s): Z91.14 - PATIENT'S OTHER NONCOMPLIANCE WITH MEDICATION REGIMEN Status : Chronic Comment: Longstanding non-compliance - Plan PT/OT, social media marketing specialist, speech therapy, DVT proph w/SCDs Likely end-stage CVA -: Hospice evaluating -: Continue ASA 300mg [place] daily -: Nutritional support with Jevity 1.5 at 50ml/h -: CM assisting with dispo options * Poor prognosis
[2017-09-13] MEDS: Sterile Water 20 ML VIAL FS PRN (21:39)
[2017-09-14] MEDS: Dextrose 5 %-0.45 % NaCl 1,000 ML IV SCH ×3 (00:17→14:53)
[2017-09-14] MEDS: Piperacillin/Tazobactam 3.375 GM in Sodium Chloride 0.9% 100 ML IVPB SCH ×5 (00:24→20:26)
[2017-09-14] MEDS: Famotidine/PF 20 mg/2ml Vial SLOW IVP SCH ×3 (00:25→20:26)
[2017-09-14] MEDS: Morphine 5 MG/ML SYRINGE SLOW IVP PRN ×5 (00:35→22:17)
[2017-09-14] MEDS: Ziprasidone 20 MG VIAL IM PRN ×3 (00:55→23:57)
[2017-09-14] MEDS: Carvedilol 6.25 MG TAB PO SCH ×3 (03:28→20:24)
[2017-09-14] MEDS: Atorvastatin Calcium 10 MG TAB PO SCH ×2 (03:28→20:24)
[2017-09-14] MEDS: Docusate 100 MG CAP PO SCH ×3 (03:28→20:25)
[2017-09-14] MEDS: Valproate Sodium 250 mg/5 ml UD Cup PER TUBE SCH ×4 (03:30→20:27)
--- NOTE | 2017-09-14 08:44 | RAD ---
TWO VIEWS KUB: Indication: NG tube insertion. FINDINGS: There is a Dobbhoff feeding tube projecting in the region of the gastric fundus. There is cardiomegal y, pulmonary vascular congestion, small bilateral pleural effusions. Cholecystectomy clips seen in th e right upper quadrant. There is a single lead AICD overlying the left chest wall. IMPRESSION: Dobbhoff feeding tube tip seen in the region of the gastric fundus. POS: [facility]
[2017-09-14] MEDS: Ziprasidone 20 MG VIAL IM SCH ×2 (09:03→20:18)
--- NOTE | 2017-09-14 09:18 | RAD ---
KUB: INDICATION: NG tube placement. FINDINGS: There is a single-lead AICD overlying the left chest wall. There is prominent cardiomegaly with pulm onary vascular congestion and small bilateral pleural effusions. The nasogastric tube reported is no t seen. There is some coiled tubing seen within the floor of hypopharynx. IMPRESSION: 1. Coiled tubing seen within the region of the hypopharynx most likely related to patient's orogastr ic tube. Recommend repositioning. 2. Cardiomegaly with pulmonary vascular congestion and small bilateral pleural effusions suspicious for congestive heart failure. POS: [facility]
[2017-09-14] MEDS: Aspirin 300 MG Suppository PR SCH (10:28)
--- NOTE | 2017-09-14 12:28 | PRG ---
DATE OF SERVICE: 09/14/2017 SUBJECTIVE: The patient continues to be agitated. He tore out his Dobbhoff tube last night. PHYSICAL EXAMINATION: VITAL SIGNS: Temperature 97.4, pulse 81, respirations 18, O2 sat 94% on 4 liters. HEENT: Unremarkable. NECK: No JVD. LUNGS: Clear. CARDIAC: S1 and S2 regular. ABDOMEN: Soft. EXTREMITIES: Right-sided hemiparesis. LABORATORY DATA: No labs were obtained today. ASSESSMENT: Status post stroke with continued agitation. RECOMMENDATION: Difficult situation. He probably needs a PEG tube, but I have no confidence that he will keep that in. Family seems to be resigned to the fact that he will pass away soon, although I am not sure this is the case.
[2017-09-14] MEDS: Amiodarone 200 MG TAB PO SCH (12:44)
[2017-09-14] MEDS: Multivitamins, Adult 10 ML, Folic Acid 1 MG, Thiamine HCl 100 MG in Dextrose 5 %-0.45 %... IV SCH (14:09)
--- NOTE | 2017-09-14 14:25 | PDOC.PN ---
- Subjective Encounter Start Date: 09/14/17 Encounter Start Time: 14:25 Subjective: f/u for L CVA with aphasia, R hemiparesis with intermittent agitation -: pulling out Dobhoff feeding tube x 2. Wrist restraints and Geodon given -: Palliative care discussing Hospice options. - Objective Resuscitation Status: Resuscitation Status DNR:Do Not Resuscitate MAR Reviewed: Yes Vital Signs & Weight: Vital Signs (12 hours) Temp Pulse Resp BP BP Pulse Ox 09/14/17 12:45 120/91 H 09/14/17 11:15 97.7 F 80 12 130/96 H 93 L 09/14/17 07:20 97.4 F L 71 18 122/87 92 L 09/14/17 04:30 96.7 F L 73 20 163/107 H 86 L 09/14/17 03:28 120/91 H Weight Admit Weight 190 lb 14.725 oz Weight 203 lb Most Recent Monitor Data Heart Rate from ECG 78 NIBP 130/95 NIBP BP-Mean 105 Respiration from ECG 14 SpO2 79 I&O: 09/13/17 09/14/17 09/15/17 06:59 06:59 06:59 Intake Total 3677 1462 Output Total 180 100 Balance 3497 1362 Result Diagrams: 09/10/17 05:32 09/10/17 05:32 EKG Reviewed by me: Yes (Tele - Sinus bradycardia) Phys Exam - Physical Examination opens eyes and nods to questions, follows some commands HEENT: PERRLA, oral pharynx no lesions Neck: no JVD, supple Respiratory: no wheezing, clear to auscultation bilateral Cardiovascular: RRR Gastrointestinal: soft, non-tender, no distention, positive bowel sounds R U/LE edema Musculoskeletal: pulses present, edema present moves L limbs, R hemiparesis, aphasic Skin: normal turgor, cap refill <2 seconds Deviation from normal: Karimi with orange urine Dx/Plan (1) Acute CVA (cerebrovascular accident) Code(s): I63.9 - CEREBRAL INFARCTION, UNSPECIFIED Status: Acute Comment: L hemispheric involvement with R hemiparesis and aphasia, continue ASA 300mg UT daily, Lipitor 5mg HS, likely end-stage process, considering Hospice for d/c (2) Acute respiratory failure with hypoxia Code(s): J96.01 - ACUTE RESPIRATORY FAILURE WITH HYPOXIA Status: Acute Comment: s/p intubation and now extubated, supportive measures (3) Non-ischemic cardiomyopathy Code(s): I42.9 - CARDIOMYOPATHY, UNSPECIFIED Status: Chronic Comment: EF 10- 15%, supportive, Coreg, SHLOMO-i, AICD in place, Lasix 40mg IV q12h (4) CKD (chronic kidney disease) stage 3, GFR 30-59 ml/min Status: Chronic (5) Cocaine abuse Code(s): F14.10 - COCAINE ABUSE, UNCOMPLICATED Status: Chronic Comment: UDS + (6) Hypertension Code(s): I10 - ESSENTIAL (PRIMARY) HYPERTENSION Status: Chronic Qualifiers: Hypertension type: essential hypertension Qualified Code(s): I10 - Essential (primary) hypertension Comment: Stable, continue BP regimen and monitor response (7) Noncompliance with medication regimen Code(s): Z91.14 - PATIENT'S OTHER NONCOMPLIANCE WITH MEDICATION REGIMEN Status : Chronic Comment: Longstanding non-compliance - Plan continue antibiotics, PT/OT, oncology social work, speech therapy, DVT proph w/SCDs Continue supportive mgmt -: General stroke protocol -: ASA 300mg UT daily -: Start Lasix 40mg IV q12h -: Palliative care discussing Hospice options with family * Overall prognosis poor given end-stage cardiomyopathy, cocaine abuse, non- compliance and L hemispheric CVA with aphasia, dysphagia * and R hemiparesis, Hospice consideration a viable option * AM lab: BMP, CBC
[2017-09-14] MEDS ORDERED: Furosemide 40 MG/4 ML VIAL SLOW IVP SCH (14:30)
[2017-09-15] MEDS: Lorazepam 2 MG/ML VIAL SLOW IVP PRN ×2 (02:40→09:05)
[2017-09-15] MEDS: Piperacillin/Tazobactam 3.375 GM in Sodium Chloride 0.9% 100 ML IVPB SCH (04:15)
[2017-09-15] MEDS: Furosemide 40 MG/4 ML VIAL SLOW IVP SCH ×2 (05:08→16:08)
[2017-09-15] MEDS: Dextrose 5 %-0.45 % NaCl 1,000 ML IV SCH ×3 (05:09→21:24)
[2017-09-15 08:28] LABS: Hemoglobin 13.6 g/dL (14.0-18.0); Mean Corpuscular HGB CONC 31.2 g/dL (32.0-36.0); Mean Corpuscular Hemoglobin 27.8 pg (27.0-31.0); Mean Platelet Volume 7.9 fL (7.4-10.4); Platelet Count 222 thou/uL (130-400); RBC Distribution Width 17.3 % (11.5-14.5); Red Blood Cell (RBC) Count 4.91 mill/uL (4.70-6.10); White Blood Cell (WBC) Count 11.8 thou/uL (4.8-10.8)
[2017-09-15 08:32] LABS: Anion Gap 14 mmol/L (10-20); BUN (Urea Nitrogen) 26 mg/dL (8.4-25.7); Calc. Creatinine Clearance 78 mL/min (70-130); Calcium 8.7 mg/dL (7.8-10.44); Carbon Dioxide 26 mmol/L (22-29); Chloride 106 mmol/L (98-107); Estimated GFR-MDRD 66; Glucose 94 mg/dL (70-105); Potassium 4.7 mmol/L (3.5-5.1); Sodium 141 mmol/L (136-145)
[2017-09-15] MEDS: Aspirin 300 MG Suppository PR SCH (08:40)
[2017-09-15] MEDS: Scopolamine 1.5 mg/72 hour Patch TD SCH (08:41)
[2017-09-15] MEDS: Famotidine/PF 20 mg/2ml Vial SLOW IVP SCH ×2 (08:42→21:30)
[2017-09-15] MEDS: Docusate 100 MG CAP PO SCH ×2 (08:43→22:41)
[2017-09-15] MEDS: Carvedilol 6.25 MG TAB PO SCH ×2 (08:43→22:39)
[2017-09-15] MEDS: Amiodarone 200 MG TAB PO SCH (08:43)
[2017-09-15] MEDS: Multivitamins, Adult 10 ML, Folic Acid 1 MG, Thiamine HCl 100 MG in Dextrose 5 %-0.45 %... IV SCH (08:43)
[2017-09-15] MEDS: Valproate Sodium 250 mg/5 ml UD Cup PER TUBE SCH ×3 (08:44→22:42)
--- NOTE | 2017-09-15 09:14 | PRG ---
DATE OF SERVICE: 09/07/2017 SUBJECTIVE: The patient is very agitated. He is in four-point restraints. OBJECTIVE: VITAL SIGNS: Temperature is 98.1, pulse 78, respirations 18, O2 sat 97% on 2 liters, blood pressure 149/95. HEENT: Unremarkable. NECK: No JVD. LUNGS: Clear. CARDIAC: S1 and S2 regular. ABDOMEN: Soft. EXTREMITIES: No edema. He still has right-sided hemiparesis. ASSESSMENT: 1. Stroke 2. Status post aspiration. 3. Encephalopathy. RECOMMENDATIONS: I am going to go ahead and stop his Zosyn as he has had 5 days of antibiotics, prob ably needs some type of psychiatric evaluation as what we are doing with the antipsychotics and Ativa n does not seem to be helping. Palliative care is discussing the situation with his family.
[2017-09-15 09:27] LABS: Band 1 % (5-11); Lymphocytes 12 % (21-51); MDiff Complete? YES; Monocytes 3 % (0-10); Neutrophil 84 % (42-75); RBC Morphology Normal
[2017-09-15] MEDS ORDERED: Haloperidol Lactate 5 MG/ML VIAL IM PRN (10:25)
[2017-09-15 10:42] VITALS: BMI 25.6
[2017-09-15] MEDS: Ziprasidone 20 MG VIAL IM SCH (11:07)
--- NOTE | 2017-09-15 16:15 | PDOC.PN ---
- Subjective Encounter Start Date: 09/15/17 Encounter Start Time: 08:20 -: old records requested/rev Pt seen and examined, chart reviewed in its entirety, this is my first visit with this patient. PT had a code green called earlier for agitation, required restraints, finally given IV ativan and slept. getting more agitated at the time of my exam. Nursing reports pt seems worse on Geodon, unabl eto get seroquel since he pulled his DFT Right side still weak, encephalopathic, unable to get any history 10 point ROS unable to be done - Objective Resuscitation Status: Resuscitation Status DNR:Do Not Resuscitate MAR Reviewed: Yes Vital Signs & Weight: Vital Signs (12 hours) Temp Pulse Resp BP BP Pulse Ox 09/15/17 15:42 98.3 F 100 30 H 158/120 H 92 L 09/15/17 11:48 98.9 F 94 30 H 166/120 H 94 L 09/15/17 08:43 120/91 H 09/15/17 08:22 97.6 F 130 H 36 H 160/107 H 88 L 09/15/17 08:20 97.6 F 130 H 36 H 88 L 09/15/17 05:16 78 18 142/95 H 97 Weight Admit Weight 190 lb 14.725 oz Weight 199 lb 6.4 oz Most Recent Monitor Data Heart Rate from ECG 78 NIBP 130/95 NIBP BP-Mean 105 Respiration from ECG 14 SpO2 79 I&O: 09/14/17 09/15/17 09/16/17 06:59 06:59 06:59 Intake Total 1462 Output Total 100 2575 1000 Balance 1362 -2575 -1000 Result Diagrams: 09/15/17 08:07 09/15/17 08:07 Additional Labs: Accuchecks 09/15/17 02:35 POC Glucose 92 Radiology Reviewed by me: Yes EKG Reviewed by me: Yes Phys Exam - Physical Examination Constitutional: NAD agitated, trying to sit up HEENT: moist MMs, sclera anicteric, oral pharynx no lesions Neck: no nodes, no JVD, supple, full ROM Respiratory: no wheezing, no rales, no rhonchi Cardiovascular: RRR, no significant murmur, no rub Gastrointestinal: soft, non-tender, no distention, positive bowel sounds Musculoskeletal: edema present right hemiparesis, unable to test otherwise Lymphatic: no nodes Skin: no rash, normal turgor, cap refill <2 seconds Dx/Plan (1) Acute CVA (cerebrovascular accident) Code(s): I63.9 - CEREBRAL INFARCTION, UNSPECIFIED Status: Acute Comment: L hemispheric involvement with R hemiparesis and aphasia, continue ASA 300mg MO daily, Lipitor 5mg HS, likely end-stage process, considering Hospice for d/c, awaiting family decision. If they decide not to go that route, will consult CM for placement. (2) Acute respiratory failure with hypoxia Code(s): J96.01 - ACUTE RESPIRATORY FAILURE WITH HYPOXIA Status: Resolved Comment: s/p intubation and now extubated, supportive measures (3) Anoxic-ischemic encephalopathy Code(s): G93.1 - ANOXIC BRAIN DAMAGE, NOT ELSEWHERE CLASSIFIED; I67.82 - CEREBRAL ISCHEMIA Status: Acute Comment: Worseing mental status and agitation, pt is restrained for preventing harm to himself , pulling Iv lines, Geodon stopped, unable to take Seroquel. Will rely on Iv ativan and IM Haldol tonight and monitor response (4) Nonsustained ventricular tachycardia Code(s): I47.2 - VENTRICULAR TACHYCARDIA Status: Acute Comment: short burst of NSVT this morning. monitor (5) Systolic CHF, acute on chronic Code(s): I50.23 - ACUTE ON CHRONIC SYSTOLIC (CONGESTIVE) HEART FAILURE Status : Chronic Comment: ef- 10% (6) CKD (chronic kidney disease) stage 3, GFR 30-59 ml/min Status: Chronic (7) Cocaine abuse Code(s): F14.10 - COCAINE ABUSE, UNCOMPLICATED Status: Chronic Comment: UDS + in past. (8) Hypertension Code(s): I10 - ESSENTIAL (PRIMARY) HYPERTENSION Status: Chronic Qualifiers: Hypertension type: essential hypertension Qualified Code(s): I10 - Essential (primary) hypertension Comment: Stable, continue BP regimen and monitor response (9) Non-ischemic cardiomyopathy Code(s): I42.9 - CARDIOMYOPATHY, UNSPECIFIED Status: Chronic Comment: EF 10- 15%, supportive, Coreg, SHLOMO-i, AICD in place, Lasix held, pt not eating ro drinking. (10) Noncompliance with medication regimen Code(s): Z91.14 - PATIENT'S OTHER NONCOMPLIANCE WITH MEDICATION REGIMEN Status : Chronic Comment: Longstanding non-compliance - Plan cont current plan of care, PT/OT, bilingual social worker * .
[2017-09-15] MEDS: Morphine 5 MG/ML SYRINGE SLOW IVP PRN (16:50)
[2017-09-15] MEDS ORDERED: Amiodarone HCl 150 MG, Admixture Fee 1 EACH in Dextrose 5% in Water 100 ML IVPB SCH (22:00)
[2017-09-15] MEDS ORDERED: Acetaminophen 1,000 MG in Premix Bag 1 BAG IVPB PRN (22:11)
[2017-09-15] MEDS ORDERED: Amiodarone HCl 450 MG, Admixture Fee 1 EACH in Dextrose 5% in Water 250 ML IVPB SCH (22:15)
[2017-09-15] MEDS: Atorvastatin Calcium 10 MG TAB PO SCH (22:39)
[2017-09-16] MEDS: Lorazepam 2 MG/ML VIAL SLOW IVP PRN ×2 (01:02→05:16)
[2017-09-16] MEDS: Docusate 100 MG CAP PO SCH (09:18)
[2017-09-16] MEDS: Carvedilol 6.25 MG TAB PO SCH (09:18)
[2017-09-16] MEDS: Valproate Sodium 250 mg/5 ml UD Cup PER TUBE SCH (09:18)
[2017-09-16] MEDS: Famotidine/PF 20 mg/2ml Vial SLOW IVP SCH (09:38)
[2017-09-16] MEDS: Aspirin 300 MG Suppository PR SCH (09:38)
--- NOTE | 2017-09-16 10:24 | PRG ---
DATE OF SERVICE: 09/16/2017 The patient is now on an amiodarone drip for sustained ventricular tachycardia. He remains extremely agitated. PHYSICAL EXAMINATION: VITAL SIGNS: Temperature is 99.6, pulse 97, respiration 24, sat 92%, blood pressure 142/102. NEURO: Neurologically, he is still flailing in the bed. He has periodic breathing. HEENT: Otherwise unremarkable. NECK: No JVD. LUNGS: Coarse rhonchi. CARDIAC: S1 and S2 regular. ABDOMEN: Soft. EXTREMITIES: Edematous. LABORATORY DATA: White blood cell 11.8, hematocrit 43.7, platelet count 222. Sodium 141, potassium 4.7, chloride 106, CO2 26, BUN 26, creatinine 1.3, glucose 94. ASSESSMENT: 1. Post cerebrovascular accident with right-sided hemiparesis and aphasia. Did not improve with t-P A. 2. Post-intubation for respiratory failure - the patient's family requested removal of endotracheal tube and institution of a DNR order. 3. Sustained ventricular tachycardia. 4. Cardiomyopathy. 5. History of cocaine abuse. 6. Congestive heart failure. PLAN: Ethically this is a very difficult situation. The patient does not look like he will pass tanya y any time soon. He has been unable to take anything nutritionally secondary to his altered mental s tatus. His cardiac condition has been such a concern that he has been started on amiodarone. I woul d recommend that palliative care push hard for hospice as I do not see any chance of this getting bet ter, particularly when the family is limiting what kind of medical therapy we can give the patient. Pulmonary has no further recommendations at this time. Dr. Alonso is available this weekend if help is needed. Otherwise, I will return Wednesday.
[2017-09-16] MEDS: Morphine 5 MG/ML SYRINGE SLOW IVP PRN (11:25)
[2017-09-16 11:52] VITALS: BP 140/99; TEMP 100.9
--- NOTE | 2017-09-17 09:22 | DS ---
DATE OF ADMISSION: 09/06/2017 DATE OF DISCHARGE: 09/16/2017 TIME OF : 1317. CONSULTATIONS: 1. Cardiology. 2. Pulmonary Critical Care, Dr. Samuel Bryant. 3. Neurology, Dr. Duyen Cortez. 4. Repeat Cardiology consult, Dr. Saúl Corona. PROCEDURES: Echocardiogram on 09/06/2017 that showed an ejection fraction of 10 %-15%, mild to moderate tricuspid regurgitation, moderately elevated pulmonary artery pressures, no thrombus, small pericardial effusion and the pacer wire in the right ventricle. CAUSE OF : 1. Cardiac arrest, immediate. 2. Respiratory arrest, immediate. 3. Acute hypoxemic respiratory failure. 4. Stroke in left MCA distribution, ischemic. 5. Sustained ventricular tachycardia. HISTORY AND PHYSICAL: Mr. Beckham was a 57-year-old -[place] male admitted on 09/06/[address] Fung from the Emergency Department after presenting with acute right-sided weakness and aphasia. He received TPA and placed on TPA protocol in the ICU. HOSPITAL COURSE: The patient was admitted by Dr. Fung. Neurology was consulted, Pulmonary, Critical Care and Cardiology were consulted. Echocardiogram was done that showed chronic severe systolic CHF and nonischemic cardiomyopathy. From a stroke standpoint, the patient did not really improve over the next several days. He was eventually transitioned from the ICU to the stroke unit. Discussions held with the family regarding long-term care and they did not believe that he wanted a PEG or trach tube. The patient's mental status waxed and waned through the hospital stay. It was ultimately decided to make him a DNR. He remained relatively stable, but in poor condition with poor prognosis. Overnight on 09/15/2017 to 09/16/2017, he developed sustained ventricular tachycardia and was placed on amiodarone drip. A repeat discussion with the family regarding disposition and plans were made and it was decided to focus on comfort care and the patient transitioned to inpatient hospice. Arrangements were made for inpatient hospice; however, prior to the patient being able to be transferred, he did expectedly pass. Time of was 1318. DISPOSITION: No autopsy was requested by family and not medically necessary. Transferred to [facility] [place]. Greater than 45 minutes were spent at the bedside with the patient during the day. TATIANA
== END 2017-09-16 17:33 | disposition expired | DRG 61 ==
LOC: ERS 12:28 → CCU 13:22 → 2SE 09-12 10:44
PROVIDERS: ADMIT Internal Medicine; ATTEND Internal Medicine
PROC: 3E03317 Introduction of Other Thrombolytic into Peripheral Vein, Percutaneous Approach (ICD-10-PCS; principal; 2017-09-06)
PROC: 5A1945Z Respiratory Ventilation, 24-96 Consecutive Hours (ICD-10-PCS; 2017-09-09)
PROC: 0BH17EZ Insertion of Endotracheal Airway into Trachea, Via Natural or Artificial Opening (ICD-10-PCS; 2017-09-09)
DX: I63.512 Cerebral infarction due to unspecified occlusion or stenosis of left middle cerebral artery (principal); J96.01 Acute respiratory failure with hypoxia; J69.0 Pneumonitis due to inhalation of food and vomit; G93.1 Anoxic brain damage, not elsewhere classified; I50.23 Acute on chronic systolic (congestive) heart failure; I47.2 Ventricular tachycardia; R13.10 Dysphagia, unspecified; I13.0 Hypertensive heart and chronic kidney disease with heart failure and stage 1 through stage 4 chronic kidney disease, or unspecified chronic kidney disease; G81.91 Hemiplegia, unspecified affecting right dominant side; I42.9 Cardiomyopathy, unspecified; E87.2 Acidosis; I46.9 Cardiac arrest, cause unspecified; N18.3 Chronic kidney disease, stage 3 (moderate); R47.01 Aphasia; Z66 Do not resuscitate; Z51.5 Encounter for palliative care; Z95.810 Presence of automatic (implantable) cardiac defibrillator; I25.10 Atherosclerotic heart disease of native coronary artery without angina pectoris; E87.5 Hyperkalemia; F14.10 Cocaine abuse, uncomplicated; R45.1 Restlessness and agitation; Z91.14 Patient's other noncompliance with medication regimen; J20.9 Acute bronchitis, unspecified; R29.716 NIHSS score 16
CPT/HCPCS: 0042T; 36415; 36416; 37195; 51702; 70450; 70496; 70498; 71045; 74018; 80048; 80053; 80061; 80306; 82550; 82553; 82805; 84484; 85007; 85025; 85027; 85610; 85730; 86850; 86900; 86901; 93005; 93306; 94002; 94003; 94640; J2270; A4216; G8987-GO-CM; G8988-GO-CJ; G8996-GN-CN; G8997-GN-CL; G9168-GN-CN; G9169-GN-CK; J0131; J0282; J0360; J1630; J1940; J2060; J2250; J2543; J2704; J2997; J3010; J3411; J3486; J7042; J7050; J7070; J7620; S0028